=== PATIENT | male | born 1940 | race Caucasian/White ===

== ENCOUNTER 2016-07-22 12:23 | Emergency (ER) | payer OTHER ==
[~2016-07-22] VITALS: Ht 170.2 cm; Wt 104.0 kg
[~2016-07-22 12:23] MED LIST: ASPI81 PO; FENO50TA PO; FISH1000 PO; NIAC500 PO; TAB-TAB PO; TOPR50TA PO; ZOCO40TA PO
--- NOTE | 2016-07-22 12:43 | PD ---
HPI Chief Complaint: Respiratory Symptoms Time Seen by Provider: 12:40 Travel History International Travel<30 days: No Contact w/Intl Traveler<30days: No History of Present Illness HPI Patient presents with congestion dyspnea and cough for approximately 2 weeks. Denies any nausea vomiting diarrhea or fever. History of asbestosis and bilateral breast cancer. Followed by oncology. He does not have a blender. Denies any new rashes. Denies any tobacco exposure. PFSH Past Medical History High Cholesterol: Yes Diminished Hearing: No Hypertension: Yes Kidney Stones: Yes Social History Alcohol Use: Yes (1 YR) Tobacco Use: No Substance Use: No Allergies-Medications (Allergen,Severity, Reaction): Coded Allergies: No Known Allergies (Verified , 07/22/16) Reported Meds & Prescriptions Reported Meds & Active Scripts Active Reported Fenofibrate 160 Mg Tab 160 Mg PO DAILY B12 (Cyanocobalamin) 1,000 Mcg Tab 1,000 Mcg PO DAILY Multi Vitamin (Multiple Vitamin) 1 Tab Tab 1 Tab PO DAILY Osteo Bi-Flex One A Day (Hdolsmlqq-Csyhdaqyyfy-Tufdazu) 1 Tab 1 Tab PO DAILY Calcium 500 +D (Calcium Carbonate-Cholecalciferol) 500-400 Mg-Unit Tab 1 Tab PO TID Tamoxifen (Tamoxifen Citrate) 20 Mg Tab 20 Mg PO DAILY Losartan (Losartan Potassium) 100 Mg Tab 100 Mg PO DAILY Metoprolol Tartrate 25 Mg Tab 25 Mg PO BID Simvastatin 40 Mg Tab 40 Mg PO HS Aspirin Low Dose (Aspirin) 81 Mg Chew 81 Mg CHEW DAILY Review of Systems General / Constitutional: No: Fever Eyes: No: Visual changes HENT: No: Headaches Cardiovascular: No: Chest Pain or Discomfort Respiratory: Positive: Cough, Shortness of Breath Gastrointestinal: No: Abdominal Pain Genitourinary: No: Dysuria Musculoskeletal: No: Pain Skin: No Rash Neurologic: No: Weakness Psychiatric: No: Depression Endocrine: No: Polydipsia Hematologic/Lymphatic: No: Easy Bruising Physical Exam Narrative GENERAL: Well-nourished, well-developed patient. SKIN: Warm and dry. HEAD: Normocephalic. EYES: No scleral icterus. No injection or drainage. NECK: Supple, trachea midline. No JVD or lymphadenopathy. CARDIOVASCULAR: Regular rate and rhythm without murmurs, gallops, or rubs. RESPIRATORY: Good breath sounds in all feng. No accessory muscle use. GASTROINTESTINAL: Abdomen soft, non-tender, nondistended. MUSCULOSKELETAL: No cyanosis, or edema. BACK: Nontender without obvious deformity. No CVA tenderness. Data Data Last Documented VS Vital Signs Date Time Temp Pulse Resp B/P Pulse Ox O2 Delivery O2 Flow Rate FiO2 07/22/16 13:20 94 Room Air 07/22/16 13:10 98.3 82 16 168/83 Orders Complete Blood Count With Diff (07/22/16 12:40) Basic Metabolic Panel (Bmp) (07/22/16 12:40) Chest, Single Ap (07/22/16 12:40) Sodium Chloride 0.9% Flush (Ns Flush) (07/22/16 12:45) Labs Laboratory Tests Test 07/22/16 13:00 White Blood Count 8.4 TH/MM3 Red Blood Count 5.16 MIL/MM3 Hemoglobin 14.2 GM/DL Hematocrit 42.8 % Mean Corpuscular Volume 83.0 FL Mean Corpuscular Hemoglobin 27.6 PG Mean Corpuscular Hemoglobin 33.2 % Concent Red Cell Distribution Width 13.6 % Platelet Count 205 TH/MM3 Mean Platelet Volume 8.0 FL Neutrophils (%) (Auto) 69.0 % Lymphocytes (%) (Auto) 10.0 % Monocytes (%) (Auto) 8.0 % Eosinophils (%) (Auto) 10.0 % Basophils (%) (Auto) 3.0 % Neutrophils # (Auto) 5.8 TH/MM3 Lymphocytes # (Auto) 0.8 TH/MM3 Monocytes # (Auto) 0.7 TH/MM3 Eosinophils # (Auto) 0.8 TH/MM3 Basophils # (Auto) 0.3 TH/MM3 CBC Comment DIFF FINAL Differential Comment Sodium Level 141 MEQ/L Potassium Level 3.8 MEQ/L Chloride Level 104 MEQ/L Carbon Dioxide Level 27.4 MEQ/L Anion Gap 10 MEQ/L Blood Urea Nitrogen 23 MG/DL Creatinine 2.00 MG/DL Estimat Glomerular Filtration 33 ML/MIN Rate Random Glucose 117 MG/DL Calcium Level 8.7 MG/DL [facility] Medical Decision Making Medical Screen Exam Complete: Yes Emergency Medical Condition: Yes Differential Diagnosis Asbestosis aggravation or progression, pneumonia, upper respiratory infection, viral syndrome, cough Narrative Course Assessment and plan discussed with patient and at bedside. Chest x-ray showed no acute cardiopulmonary process. Laboratory studies are within normal limits. I think with the patient's history of asbestosis and antibiotic and cough suppressant is appropriate. Diagnosis Primary Impression: Upper respiratory infection Qualified Code: J06.9 - Upper respiratory tract infection, unspecified type Patient Instructions: General Instructions Additional Instructions: Encouraged rest fluids and Motrin, encourage frequent handwashing, encourage vitamin C and zinc to boost immune system. Follow-up with oncology as scheduled , discussed follow-up with pulmonology secondary to asbestosis. Med/Other Pt SpecificInfo: Prescription(s) given Scripts Guaifenesin-Codeine Liq (Cheratussin AC Liq)100-10 Mg/5 Ml Syrp10 Ml PO Q4H PRN (COUGH AND COLD SYMPTOMS) #120 ML Ref 0 Do not exceed 6 doses/24 hrs. Prov:Jesús Jett MD 07/22/16 Azithromycin (Zithromax Z-Haider)250 Mg Fcil109 Mg PO DIRECTED #1 DSPK Ref 0 500 MG (2 tabs) day 1, then 1 tab days 2-5. Prov:Jesús Jett MD 07/22/16 Disposition: 01 DISCHARGE HOME Condition: Good Jesús Jett MD Jul 22, 2016 12:43
[2016-07-22] MEDS ORDERED: SODIUM CHLORIDE 0.9% FLUSH 5 ML FLUSH IVF PRN (12:45)
[2016-07-22 13:10] VITALS: BP 168/83; PULSE 82; RESP 16; TEMP 98.3; O2SAT 89
[2016-07-22 13:13] LABS: AUTOMATED NEUTROPHIL # 5.8 TH/MM3 (1.8-7.7); BASOPHIL # 0.3 TH/MM3 (0-0.2); EOSINOPHIL # 0.8 TH/MM3 (0-0.4); HEMATOCRIT 42.8 % (39.0-51.0); HEMO FLAGS DIFF FINAL; LYMPHOCYTE # 0.8 TH/MM3 (1.0-4.8); MEAN CORPUSCULAR HEMOGLOBIN 27.6 PG (27.0-34.0); MEAN CORPUSCULAR HGB CONC 33.2 % (32.0-36.0); PLATELET COUNT 205 TH/MM3 (150-450); RED BLOOD COUNT 5.16 MIL/MM3 (4.50-5.90); RED CELL DISTRIBUTION WIDTH 13.6 % (11.6-17.2); WHITE BLOOD COUNT 8.4 TH/MM3 (4.0-11.0)
[2016-07-22] MEDS ORDERED: ASPI81CH37 CHEW (13:20)
[2016-07-22] MEDS ORDERED: FENO160T PO (13:20)
[2016-07-22] MEDS ORDERED: LOSA100T PO (13:20)
[2016-07-22] MEDS ORDERED: TAMO20TA6 PO (13:20)
[2016-07-22] MEDS ORDERED: BOSW5TAB PO (13:20)
[2016-07-22] MEDS ORDERED: SIMV40TA PO (13:20)
[2016-07-22] MEDS ORDERED: CYAN1TAB24 PO (13:20)
[2016-07-22] MEDS ORDERED: METO25TA3 PO (13:20)
[2016-07-22] MEDS ORDERED: CALC1TAB12 PO (13:20)
[2016-07-22] MEDS ORDERED: MULT-135 PO (13:20)
[2016-07-22 13:24] LABS: POTASSIUM 3.8 MEQ/L (3.5-5.1)
[2016-07-22 13:28] LABS: BICARBONATE 27.4 MEQ/L (21.0-32.0)
--- NOTE | 2016-07-22 13:46 | RADHPO ---
EXAM DATE/TIME: 07/22/2016 12:54 [facility] COMPARISON: No previous studies available for comparison. INDICATIONS : Shortness of breath. Cough and congestion for two weeks. MEDICAL HISTORY : Hypertension. SURGICAL HISTORY : None. ENCOUNTER: Initial ACUITY: 2 weeks PAIN SCORE: 0/10 LOCATION: Bilateral chest FINDINGS: Portable AP view of the chest demonstrates a normal-sized cardiac silhouette. No effusion, consolidat ion, or pneumothorax is present. Bones and soft tissues demonstrate no acute finding. Multiple clips overlie the left axilla. CONCLUSION: No acute cardiopulmonary abnormality is identified. Landon Rodarte MD on July 22, 2016 at 13:43 Board Certified Radiologist. This report was verified electronically.
[2016-07-22] MEDS ORDERED: CHERSYP2 PO (13:52)
[2016-07-22] MEDS ORDERED: ZITHTAB PO (13:52)
[2016-07-22 14:08] VITALS: BP 173/79
== END 2016-07-22 14:11 | disposition home or self-care (01) ==
LOC: PHED 12:23
DX: J06.9 Acute upper respiratory infection, unspecified (principal); E78.00 Pure hypercholesterolemia, unspecified; I10 Essential (primary) hypertension; F10.21 Alcohol dependence, in remission
CPT/HCPCS: 71010; 80048; 85025; 99283

== ENCOUNTER 2016-08-12 18:00 | Inpatient (IN) | payer OTHER, MEDICARE ==
[~2016-08-12] VITALS: Ht 170.2 cm; Wt 100.2 kg
[~2016-08-12 18:00] MED LIST changes: -ASPI81 PO; +ASPI81CH37 CHEW; +BOSW5TAB PO; +CALC1TAB12 PO; +CHERSYP2 PO; +CYAN1TAB24 PO; +FENO160T PO; -FENO50TA PO; -FISH1000 PO; +LOSA100T PO; +METO25TA3 PO; +MULT-135 PO; -NIAC500 PO; +SIMV40TA PO; -TAB-TAB PO; +TAMO20TA6 PO; -TOPR50TA PO; +ZITHTAB PO; -ZOCO40TA PO
[2016-08-12 18:02] VITALS: BP 114/67; PULSE 100; RESP 18; TEMP 98; O2SAT 93
[2016-08-12] MEDS ORDERED: AMOX875T2 PO (18:17)
--- NOTE | 2016-08-12 18:25 | PD ---
HPI Chief Complaint: Cold / Flu Symptoms Time Seen by Provider: 18:17 Travel History International Travel<30 days: No Contact w/Intl Traveler<30days: No Traveled to known affect area: No History of Present Illness HPI 75-year-old male with history of breast cancer status post treatment, presents to the ER today with 3 weeks' history of shortness of breath, coughing, has been seen by primary care physician for this and has been on a course of Z-Haider and amoxicillin, but comes to the ER today because he states that the symptoms are worsening and that he coughs in spasms and nearly has syncopal episodes when the spasm of coughing occurs. He has been having fevers but denies any chest pains, vomiting, or any other symptoms. Modifying Factors: Worse with exertion Associated Signs & Symptoms: Coughing spasms, shortness of breath, dyspnea on exertion, near-syncope Risk Factors: Cancer history PFSH Past Medical History Hx Anticoagulant Therapy: No Arthritis: Yes Cardiovascular Problems: Yes (HTN) High Cholesterol: Yes Cerebrovascular Accident: No Diabetes: No Diminished Hearing: No Hypertension: Yes Kidney Stones: Yes Respiratory: No Past Surgical History Hysterectomy: No Other Surgery: Yes (HERNIA REMOVAL/ DOUBLE MASECTOMY ) Social History Alcohol Use: Yes (1 YR) Tobacco Use: No (QUIT 1968) Substance Use: No Allergies-Medications (Allergen,Severity, Reaction): Coded Allergies: No Known Allergies (Verified , 08/12/16) Reported Meds & Prescriptions Reported Meds & Active Scripts Active Reported Amoxicillin-Clavulanate 875-125 mg Tab 875 Mg PO BID not for use in CrCl <30 mL/minute Fenofibrate 160 Mg Tab 160 Mg PO DAILY B12 (Cyanocobalamin) 1,000 Mcg Tab 1,000 Mcg PO DAILY Multi Vitamin (Multiple Vitamin) 1 Tab Tab 1 Tab PO DAILY Osteo Bi-Flex One A Day (Wbiadjbve-Nkknasvscun-Fatczvy) 1 Tab 1 Tab PO DAILY Calcium 500 +D (Calcium Carbonate-Cholecalciferol) 500-400 Mg-Unit Tab 1 Tab PO TID Tamoxifen (Tamoxifen Citrate) 20 Mg Tab 20 Mg PO DAILY Losartan (Losartan Potassium) 100 Mg Tab 100 Mg PO DAILY Metoprolol Tartrate 25 Mg Tab 25 Mg PO BID Simvastatin 40 Mg Tab 40 Mg PO HS Aspirin Low Dose (Aspirin) 81 Mg Chew 81 Mg CHEW DAILY Review of Systems Except as stated in HPI: all other systems reviewed are Neg Physical Exam Narrative GENERAL: Well-nourished, well-developed elderly white male patient in no acute distress at rest. Awake and oriented 3. SKIN: Warm and dry. HEAD: Normocephalic. EYES: No scleral icterus. No injection or drainage. NECK: Supple, trachea midline. No JVD . CARDIOVASCULAR: Regular rate and rhythm without murmurs, gallops, or rubs. RESPIRATORY: Breath sounds equal bilaterally. No accessory muscle use. GASTROINTESTINAL: Abdomen soft, non-tender, nondistended. MUSCULOSKELETAL: No cyanosis, or edema. BACK: Nontender without obvious deformity. No CVA tenderness. Data Data Last Documented VS Vital Signs Date Time Temp Pulse Resp B/P Pulse Ox O2 Delivery O2 Flow Rate FiO2 08/12/16 18:41 93 08/12/16 18:02 98.0 100 18 114/67 Orders Electrocardiogram (08/12/16 18:17) Complete Blood Count With Diff (08/12/16 18:17) Comprehensive Metabolic Panel (08/12/16 18:17) Magnesium (Mg) (08/12/16 18:17) B-Type Natriuretic Peptide (08/12/16 18:17) Ckmb (Isoenzyme) Profile (08/12/16 18:17) Troponin I (08/12/16 18:17) Act Partial Throm Time (Ptt) (08/12/16 18:17) Prothrombin Time / Inr (Pt) (08/12/16 18:17) Chest, Single Ap (08/12/16 18:17) Ecg Monitoring (08/12/16 18:17) Iv Access Insert/Monitor (08/12/16 18:17) Oximetry (08/12/16 18:17) Sodium Chloride 0.9% Flush (Ns Flush) (08/12/16 18:30) Blood Culture (08/12/16 18:17) Ct Pulmonary Angiogram (08/12/16 19:04) Labs Laboratory Tests Test 08/12/16 18:30 White Blood Count 9.9 TH/MM3 Red Blood Count 5.18 MIL/MM3 Hemoglobin 14.1 GM/DL Hematocrit 43.0 % Mean Corpuscular Volume 83.1 FL Mean Corpuscular Hemoglobin 27.1 PG Mean Corpuscular Hemoglobin 32.7 % Concent Red Cell Distribution Width 14.5 % Platelet Count 236 TH/MM3 Mean Platelet Volume 9.0 FL Neutrophils (%) (Auto) 71.5 % Lymphocytes (%) (Auto) 10.8 % Monocytes (%) (Auto) 6.3 % Eosinophils (%) (Auto) 9.7 % Basophils (%) (Auto) 1.7 % Neutrophils # (Auto) 7.0 TH/MM3 Lymphocytes # (Auto) 1.1 TH/MM3 Monocytes # (Auto) 0.6 TH/MM3 Eosinophils # (Auto) 1.0 TH/MM3 Basophils # (Auto) 0.2 TH/MM3 CBC Comment DIFF FINAL Differential Comment Prothrombin Time 12.0 SEC Prothromb Time International 1.1 RATIO Ratio Activated Partial 24.5 SEC Thromboplast Time Sodium Level 140 MEQ/L Potassium Level 3.9 MEQ/L Chloride Level 105 MEQ/L Carbon Dioxide Level 24.9 MEQ/L Anion Gap 10 MEQ/L Blood Urea Nitrogen 26 MG/DL Random Glucose 140 MG/DL Calcium Level 8.4 MG/DL Magnesium Level 2.2 MG/DL Albumin 3.0 GM/DL MDM Medical Decision Making Medical Screen Exam Complete: Yes Emergency Medical Condition: Yes Medical Record Reviewed: Yes Interpretation(s) EKG shows sinus rhythm at a rate of 91 bpm with T-wave inversions in the lateral leads but no signs of acute ST-T elevations. Laboratory Tests Test 08/12/16 18:30 Neutrophils (%) (Auto) 71.5 % (16.0-70.0) Eosinophils (%) (Auto) 9.7 % (0.0-4.0) Eosinophils # (Auto) 1.0 TH/MM3 (0-0.4) Prothrombin Time 12.0 SEC (9.8-11.6) Blood Urea Nitrogen 26 MG/DL (7-18) Random Glucose 140 MG/DL (74-106) Calcium Level 8.4 MG/DL (8.5-10.1) Albumin 3.0 GM/DL (3.4-5.0) Differential Diagnosis Coughing, dyspnea on exertion, shortness of breath, near-syncopepertussis versus viral syndrome versus bronchitis versus pneumonia versus PE versus CHF Narrative Course Chest x-ray did not show any signs of acute lobar pneumonia. Considering patient's history, PE study was ordered. Lab work is pending. Physician Communication Physician Communication Case is signed out to Dr. Cisse at 7 PM awaiting CTA for further disposition. Diagnosis Primary Impression: Shortness of breath Condition: Stable SoonToma lund MD Aug 12, 2016 18:25
[2016-08-12] MEDS ORDERED: SODIUM CHLORIDE 0.9% FLUSH 5 ML FLUSH IVF PRN ×2 (18:30→21:00)
[2016-08-12 18:41] VITALS: O2SAT 93
[2016-08-12 18:46] LABS: BASOPHIL # 0.2 TH/MM3 (0-0.2); BASOPHIL % 1.7 % (0.0-2.0); EOSINOPHIL % 9.7 % (0.0-4.0); LYMPH % 10.8 % (9.0-44.0); LYMPHOCYTE # 1.1 TH/MM3 (1.0-4.8); MEAN CELL VOLUME 83.1 FL (80.0-100.0); MEAN CORPUSCULAR HEMOGLOBIN 27.1 PG (27.0-34.0); MEAN CORPUSCULAR HGB CONC 32.7 % (32.0-36.0); MONO % 6.3 % (0.0-8.0); NEUT % 71.5 % (16.0-70.0); PLATELET COUNT 236 TH/MM3 (150-450); RED BLOOD COUNT 5.18 MIL/MM3 (4.50-5.90); RED CELL DISTRIBUTION WIDTH 14.5 % (11.6-17.2); WHITE BLOOD COUNT 9.9 TH/MM3 (4.0-11.0)
[2016-08-12 18:47] LABS: HEMO FLAGS DIFF FINAL
[2016-08-12 19:00] LABS: CHLORIDE 105 MEQ/L (98-107); POTASSIUM 3.9 MEQ/L (3.5-5.1); SODIUM (NA) 140 MEQ/L (136-145)
[2016-08-12 19:03] LABS: ANION GAP 10 MEQ/L (5-15); BICARBONATE 24.9 MEQ/L (21.0-32.0)
[2016-08-12 19:04] LABS: APTT (PATIENT) 24.5 SEC (24.3-30.1); BLOOD UREA NITROGEN 26 MG/DL (7-18); INTERNATIONAL NORMALIZED RATIO 1.1 RATIO; MAGNESIUM 2.2 MG/DL (1.5-2.5)
[2016-08-12 19:07] LABS: ALT (GPT) 22 U/L (12-78); AST (GOT) 23 U/L (15-37); GLOMERULAR FILTRATION RATE 35 ML/MIN (>89)
[2016-08-12 19:08] LABS: TOTAL BILIRUBIN ADULT 0.3 MG/DL (0.2-1.0)
[2016-08-12 19:09] LABS: ALKALINE PHOSPHATASE 28 U/L (45-117)
[2016-08-12 19:15] LABS: CREATINE KINASE 93 U/L (39-308)
--- NOTE | 2016-08-12 19:33 | PD ---
Physical Exam Date Seen by Provider: Aug 12, 2016 Time Seen by Provider: 19:28 Narrative accepted in transfer of care from Dr Rowell GENERAL: Well-developed well-nourished male in no acute distress no respiratory distress this supplemental nasal cannula oxygen in place SKIN: Warm and dry. HEAD: Normocephalic. EYES: No scleral icterus. No injection or drainage. NECK: Supple, trachea midline. No JVD or lymphadenopathy. CARDIOVASCULAR: Regular rate and rhythm without murmurs, gallops, or rubs. RESPIRATORY: Breath sounds equal bilaterally. No accessory muscle use. GASTROINTESTINAL: Abdomen soft, non-tender, nondistended. MUSCULOSKELETAL: No cyanosis, or edema. BACK: Nontender without obvious deformity. No CVA tenderness. Data Data Last Documented VS Vital Signs Date Time Temp Pulse Resp B/P Pulse Ox O2 Delivery O2 Flow Rate FiO2 08/12/16 20:13 90 133/80 98 Nasal Cannula 2.5 115/76 08/12/16 19:40 18 08/12/16 18:02 98.0 Orders Electrocardiogram (08/12/16 18:17) Complete Blood Count With Diff (08/12/16 18:17) Comprehensive Metabolic Panel (08/12/16 18:17) Magnesium (Mg) (08/12/16 18:17) B-Type Natriuretic Peptide (08/12/16 18:17) Ckmb (Isoenzyme) Profile (08/12/16 18:17) Troponin I (08/12/16 18:17) Act Partial Throm Time (Ptt) (08/12/16 18:17) Prothrombin Time / Inr (Pt) (08/12/16 18:17) Chest, Single Ap (08/12/16 18:17) Ecg Monitoring (08/12/16 18:17) Iv Access Insert/Monitor (08/12/16 18:17) Oximetry (08/12/16 18:17) Sodium Chloride 0.9% Flush (Ns Flush) (08/12/16 18:30) Blood Culture (08/12/16 18:17) Ct Pulmonary Angiogram (08/12/16 19:04) Aspirin Chew (Aspirin Chew) (08/12/16 19:45) Us Leg Venous Doppler Bilat (08/12/16 ) Heparin Infusion CLAY.Q1H (08/12/16 20:18) Heparin Inj (Heparin Inj) (08/12/16 20:30) Heparin Inj (Heparin Inj) (08/13/16 02:30) Heparin Inj (Heparin Inj) (08/13/16 02:30) Heparin-D5w Inj (Heparin-D5w Inj) (08/12/16 20:30) Cbc No Diff, Includes Plts (08/15/16 06:00) Occult Blood (Hemoccult) Stool (08/12/16 20:18) Admit Order (Ed Use Only) (08/12/16 ) ^ Saline Lock (08/12/16 20:50) Resp Oxygen Marco C Titrat 1-4 L (08/12/16 ) ^ Notify Dr: Other (08/12/16 20:50) Sodium Chloride 0.9% Flush (Ns Flush) (08/12/16 21:00) Sodium Chloride 0.9% Flush (Ns Flush) (08/12/16 21:00) Labs Laboratory Tests Test 08/12/16 18:30 White Blood Count 9.9 TH/MM3 Red Blood Count 5.18 MIL/MM3 Hemoglobin 14.1 GM/DL Hematocrit 43.0 % Mean Corpuscular Volume 83.1 FL Mean Corpuscular Hemoglobin 27.1 PG Mean Corpuscular Hemoglobin 32.7 % Concent Red Cell Distribution Width 14.5 % Platelet Count 236 TH/MM3 Mean Platelet Volume 9.0 FL Neutrophils (%) (Auto) 71.5 % Lymphocytes (%) (Auto) 10.8 % Monocytes (%) (Auto) 6.3 % Eosinophils (%) (Auto) 9.7 % Basophils (%) (Auto) 1.7 % Neutrophils # (Auto) 7.0 TH/MM3 Lymphocytes # (Auto) 1.1 TH/MM3 Monocytes # (Auto) 0.6 TH/MM3 Eosinophils # (Auto) 1.0 TH/MM3 Basophils # (Auto) 0.2 TH/MM3 CBC Comment DIFF FINAL Differential Comment Prothrombin Time 12.0 SEC Prothromb Time International 1.1 RATIO Ratio Activated Partial 24.5 SEC Thromboplast Time Sodium Level 140 MEQ/L Potassium Level 3.9 MEQ/L Chloride Level 105 MEQ/L Carbon Dioxide Level 24.9 MEQ/L Anion Gap 10 MEQ/L Blood Urea Nitrogen 26 MG/DL Creatinine 1.90 MG/DL Estimat Glomerular Filtration 35 ML/MIN Rate Random Glucose 140 MG/DL Calcium Level 8.4 MG/DL Magnesium Level 2.2 MG/DL Total Bilirubin 0.3 MG/DL Aspartate Amino Transf 23 U/L (AST/SGOT) Alanine Aminotransferase 22 U/L (ALT/SGPT) Alkaline Phosphatase 28 U/L Total Creatine Kinase 93 U/L Troponin I 0.15 NG/ML B-Type Natriuretic Peptide 392 PG/ML Total Protein 6.8 GM/DL Albumin 3.0 GM/DL [facility] Medical Record Reviewed: Yes Supervised Visit with ANI: No Interpretation(s) Troponin I: 0.15, elevated; CK total 93, not elevated; BNP: 392, elevated, mildly Last Impressions CT Angiography 08/12/[id number] Signed Impressions: Service Date/Time: Friday, August 12, 2016 19:22 - CONCLUSION: 1. Large central pulmonary emboli bilaterally. Tushar Lake MD Chest X-Ray 08/12/[id number] Signed Impressions: Service Date/Time: Friday, August 12, 2016 18:43 - CONCLUSION: 1. No acute findings. Tushar Lake MD Vital Signs Date Time Temp Pulse Resp B/P Pulse Ox O2 Delivery O2 Flow Rate FiO2 08/12/16 20:13 90 133/80 98 Nasal Cannula 2.5 115/76 08/12/16 19:40 91 18 127/65 97 Nasal Cannula 2.5 115/58 08/12/16 18:41 93 08/12/16 18:02 98.0 100 18 114/67 93 CBC & BMP Diagram 08/12/16 18:30 Differential Diagnosis accepted in transfer of care from Dr Rowell, please refer to her dictation Narrative Course accepted in transfer of care from Dr Rowell for follow-up of pending labs, pulmonary CTA, and disposition Case/reading discussed with reading radiologist Dr. Lake reports that embolism does not involve the bifurcation so is not a saddle embolism but does involve the distal main vessels with moderate to large thrombus load. Critical Care Narrative Aggregate critical care time was 40 minutes. Time to perform other separately billable procedures was not included in the critical care time. My time did not include minutes spent treating any other patients simultaneously or on activities that did not directly contribute to the patient's treatment. The services I provided to this patient were to treat and/or prevent clinically significant deterioration that could result in: Respiratory failure cardiovascular shock I provided critical care services requiring my management, as noted below: Chart data review, documentation time, medication orders and management, vital sign assessments/reviewing monitor data, ordering and reviewing lab tests, ordering and interpreting/reviewing x-rays and diagnostic studies, care of the patient and discussion of the patient with the admitting physicians. Physician Communication Physician Communication call placed for admission -discussed with Dr Rios; discussed with Dr Morrison-- - not IR case; discussed with Dr Rios--- aware of PET scan from 08/03/16 and IR call Diagnosis Primary Impression: Pulmonary emboli Admitting Information Admitting Physician Requests: Admit Condition: Stable Erna Cisse MD Aug 12, 2016 19:33
--- NOTE | 2016-08-12 19:34 | RADHPO ---
EXAM DATE/TIME: 08/12/2016 18:43 [facility] COMPARISON: No previous studies available for comparison. INDICATIONS : Shortness of breath for three weeks. MEDICAL HISTORY : Hypertension. SURGICAL HISTORY : None. ENCOUNTER: Initial ACUITY: 3 weeks PAIN SCORE: 0/10 LOCATION: Bilateral chest FINDINGS: A single view of the chest demonstrates the lungs to be symmetrically aerated without evidence of mas s, infiltrate or effusion. The cardiomediastinal contours are unremarkable. Osseous structures are intact. CONCLUSION: 1. No acute findings. Tushar Lake MD on August 12, 2016 at 19:32 Board Certified Radiologist. This report was verified electronically.
[2016-08-12 19:40] VITALS: BP_SYST 115; BP_SYST 127; BP_DIAS 58; BP_DIAS 65; PULSE 91; RESP 18; O2SAT 97
[2016-08-12] MEDS ORDERED: ASPIRIN 81 MG CHEW TAB CHEW ONE (19:45)
--- NOTE | 2016-08-12 19:50 | RADHPO ---
EXAM DATE/TIME: 08/12/2016 19:22 [facility] COMPARISON: No previous studies available for comparison. INDICATIONS : Shortness of breath. IV CONTRAST: 50 cc Visipaque (iodixanol) IV RADIATION DOSE: 21.02 CTDIvol (mGy) MEDICAL HISTORY : Carcinoma, breast. Hypertension. Renal calculi. SURGICAL HISTORY : Mastectomy, bilateral. ENCOUNTER: Initial ACUITY: 3 weeks PAIN SCALE: 0/10 LOCATION: chest TECHNIQUE: Volumetric scanning of the chest was performed using a pulmonary embolism protocol MIP images were re constructed. Using automated exposure control and adjustment of the mA and/or kV according to patien t size, radiation dose was kept as low as reasonably achievable to obtain optimal diagnostic quality images. FINDINGS: There are multiple bilateral pulmonary emboli with large filling defects centrally. Minimal basilar a telectasis in the lungs and some groundglass opacity in the upper lobes. No significant effusion. No adenopathy. No acute findings in the upper abdomen. CONCLUSION: 1. Large central pulmonary emboli bilaterally. Tushar Lake MD on August 12, 2016 at 19:46 Board Certified Radiologist. This report was verified electronically.
[2016-08-12 20:13] VITALS: BP_SYST 115; BP_SYST 133; BP_DIAS 76; BP_DIAS 80; PULSE 90; O2SAT 98
[2016-08-12] MEDS ORDERED: HEPARIN SODIUM - IV 10,000 UNITS/10 ML VIAL IV ONE (20:30)
[2016-08-12] MEDS ORDERED: HEPARIN-D5W INJ 250 ML IV SCH (20:30)
[2016-08-12] MEDS ORDERED: SODIUM CHLORIDE 0.9% FLUSH 5 ML FLUSH IVF SCH (21:00)
[2016-08-12 22:23] VITALS: O2SAT 98
--- NOTE | 2016-08-12 23:11 | RADHPO ---
EXAM DATE/TIME: 08/12/2016 22:12 [facility] COMPARISON: No previous studies available for comparison. INDICATIONS : Pulmonary embolism. MEDICAL HISTORY : Hypercholesterolemia. Hypertension. Kidney stones. Arthritis. Radiation therapy. SURGICAL HISTORY : Left wrist surgery. Hernia repair. Double mastectomy. ENCOUNTER: Initial ACUITY: 1 day PAIN SCORE: 0/10 LOCATION: Bilateral legs. TECHNIQUE: Venous ultrasound of the left and right leg was performed from the inguinal ligament to the proximal calf. Real-time, color Doppler and spectral tracing, compression and augmentation techniques were us ed. FINDINGS: RIGHT LEG: There is normal compressibility of the deep venous system from the inguinal region to the proximal ca lf. No echogenic clot is seen in the lumen of the common femoral, femoral, popliteal, and posterior tibial veins. There is a normal response of the venous system to proximal and distal augmentation an d respiration. LEFT LEG: There is DVT beginning in the proximal superficial femoral vein and extending below the knee into the posterior tibial vein. CONCLUSION: Long segment DVT of the left lower extremity as above. No DVT on the right. Landon Nance MD on August 12, 2016 at 23:08 Board Certified Radiologist. This report was verified electronically.
[2016-08-12] MEDS ORDERED: CHLORHEXIDINE GLUCONATE 2 % 1 PACK (2 CLOTHS)(extra cloths) TOP PRN (23:30)
[2016-08-13] VITALS (16 sets, daily range): BP systolic 113–157; BP diastolic 55–79; PULSE 80–111; RESP 20–28; TEMP 98.2–100; O2SAT 93–97
[2016-08-13] MEDS ORDERED: ONDANSETRON HCL 4 MG/2 ML VIAL IV PRN (00:45)
[2016-08-13] MEDS ORDERED: SODIUM CHLORIDE 0.9% FLUSH 5 ML FLUSH IV FLUSH PRN (00:45)
[2016-08-13] MEDS ORDERED: MISCELLANEOUS NURSING INFORMATION XX SCH (00:45)
[2016-08-13] MEDS ORDERED: CHLORHEXIDINE GLUCONATE 2 % 1 PACK (2 CLOTHS) TOP PRN (00:45)
[2016-08-13] MEDS ORDERED: ACETAMINOPHEN 325 MG TAB PO PRN (00:45)
[2016-08-13] MEDS ORDERED: RESP: ALBUTEROL 2.5 MG/3 ML NEB (PRN) INH (00:45)
--- NOTE | 2016-08-13 00:48 | HHI.HP ---
HPI Service Critical Care Medicine Primary Care Physician [place] Zepeda MD Admission Diagnosis Acute bilateral pulmonary emboli; h/o breast cancer Diagnosis: Travel History International Travel<30 Days: No Contact w/Intl Traveler <30 Da: No Traveled to Known Affected Are: No History of Present Illness 75 yo WM with PMH of HTN, hyperlipidemia, CKD stage III, and breast cancer with T10 vertebral body metastasis. He presented to [facility] Emergency department with 3-4 week history of shortness of breath and was found to have bilateral central pulmonary emboli. He states he has been having a cough, at times productive of phlegm, for about 4 weeks. He has had some dizziness and pre-syncope with cough. Denies chest pain or hemoptysis. Denies leg pain or swelling. Denies travel or prior history of VTE. He was originally diagnosed with URI and took a course of antibiotics without relief. He was again started on augmentin 08/08/16 per PMD. He had fever up to 101.9 this week. Today Tmax was 99.9. Today he had worsening shortness of breath and fell in the shower after a possible syncopal event. He denies head trauma. His states his BP was 82/50 at 1:30 this afternoon. He has strong family history of breast cancer including multiple male family members with history of breast cancer. In November 2012 he noted irregularity of his right nipple and had an mammogram which reveals bilateral breast masses. 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 BRCA positive. He underwent bilateral mastectomy and was started on anastrazole in march of 2013. He states he also underwent radiation therapy. He was continued on anastrazole until tumor marker became elevated in October 2015. PET scan 12/22/15 showed a solitary uptake of T10 vertebra. MRI T spine was consistent with metastasis. Biopsy of the T10 lesion was c/w breast cancer, ER positive, HI negative. He was started on Tamoxifen in December of 2015. He was followed by Dr. Ford but has been under the care of Dr. De La Torre since the former practice closed. He had PET scan 08/03/16 and report shows previously hypermetabolic T10 lesion now with photopenic defect suggesting interval treatment. Review of Systems Constitutional: COMPLAINS OF: Fever Respiratory: COMPLAINS OF: Shortness of breath Cardiovascular: COMPLAINS OF: Palpitations, Dyspnea on Exertion Past Family Social History Allergies: Coded Allergies: No Known Allergies (Verified , 08/12/16) Past Medical History HTN Hyperlipidemia CKD stage III palpitations Breast cancer Radiation therapy bilateral breasts 32 treatments in 2013 Cataracts He denies history of issues with GI bleeding, intracerebral hemorrhage, spontaneous hemorrhage Past Surgical History He has had no recent surgeries, stating last surgery was years ago. Last ocular surgery 30 years ago. Rest biopsy 2012 Bilateral mastectomy December 2012 Left inguinal hernia repair Colonoscopy 2013 Cataract surgery 30 years ago Left wrist fusion Reported Medications Losartan 100 mg by mouth daily Tamoxifen 20 g by mouth daily Metoprolol 25 mg by mouth twice a day Fenofibrate 160 g by mouth daily Simvastatin 40 g by mouth daily at bedtime Multivitamin 1 tab by mouth daily Aspirin 80 10 g by mouth daily Osteo Bi-Flex 1 tab by mouth daily Augmentin 875 g by mouth twice a day Calcium carbonate 500 mg by mouth 3 times a day B-12 1000 g by mouth daily Family History He had a sister who she states of pulmonary embolism in her late 70s. She had no known cancer history He had brother with colorectal cancer His father, paternal uncle, paternal aunt and paternal male cousin all have had breast cancer. Social History He is a former smoker. States he quit smoking 47 years ago. Drinks alcohol occasionally He is He is retired from working at a [employer] from 19-07/03 years He states he used to be very active and wouldn't walk and ride his bicycle but he has not been able to do so recently because he feels very fatigued. Physical Exam Vital Signs Vital Signs Date Time Temp Pulse Resp B/P Pulse Ox O2 Delivery O2 Flow Rate FiO2 08/12/16 22:23 98 Nasal Cannula 2.50 08/12/16 20:13 90 133/80 98 Nasal Cannula 2.5 115/76 08/12/16 19:40 91 18 127/65 97 Nasal Cannula 2.5 115/58 08/12/16 18:41 93 08/12/16 18:02 98.0 100 18 114/67 93 Physical Exam GENERAL: Well-nourished, well-developed patient who is sitting up in SKIN: Warm and dry. HEAD: Atraumatic. Normocephalic. EYES: Pupils equal and round. No scleral icterus. No injection or drainage. ENT: No nasal bleeding or discharge. Mucous membranes pink and moist. NECK: Trachea midline. No JVD. CARDIOVASCULAR: Regular rate and rhythm. No murmurs rubs or gallops. RESPIRATORY: Mildly tachypneic but without accessory muscle use. Clear to auscultation w/o w/r/r. Breath sounds equal bilaterally. On 2 L NC with sats 95% . GASTROINTESTINAL: Abdomen soft, non-tender, nondistended. bowel sounds present. MUSCULOSKELETAL: Extremities without clubbing, cyanosis. L leg with mild swelling but no erythema or warmth, no mottling, pulses intact. NEUROLOGICAL: Awake and alert. No obvious cranial nerve deficits. Motor grossly within normal limits. Normal speech. Oriented 4. Strength 5 out of 5 in all extremities. Laboratory Laboratory Tests Test 08/12/16 18:30 White Blood Count 9.9 Red Blood Count 5.18 Hemoglobin 14.1 Hematocrit 43.0 Mean Corpuscular Volume 83.1 Mean Corpuscular Hemoglobin 27.1 Mean Corpuscular Hemoglobin 32.7 Concent Red Cell Distribution Width 14.5 Platelet Count 236 Mean Platelet Volume 9.0 Neutrophils (%) (Auto) 71.5 Lymphocytes (%) (Auto) 10.8 Monocytes (%) (Auto) 6.3 Eosinophils (%) (Auto) 9.7 Basophils (%) (Auto) 1.7 Neutrophils # (Auto) 7.0 Lymphocytes # (Auto) 1.1 Monocytes # (Auto) 0.6 Eosinophils # (Auto) 1.0 Basophils # (Auto) 0.2 CBC Comment DIFF FINAL Differential Comment Prothrombin Time 12.0 Prothromb Time International 1.1 Ratio Activated Partial 24.5 Thromboplast Time Sodium Level 140 Potassium Level 3.9 Chloride Level 105 Carbon Dioxide Level 24.9 Anion Gap 10 Blood Urea Nitrogen 26 Creatinine 1.90 Estimat Glomerular Filtration 35 Rate Random Glucose 140 Calcium Level 8.4 Magnesium Level 2.2 Total Bilirubin 0.3 Aspartate Amino Transf 23 (AST/SGOT) Alanine Aminotransferase 22 (ALT/SGPT) Alkaline Phosphatase 28 Total Creatine Kinase 93 Troponin I 0.15 B-Type Natriuretic Peptide 392 Total Protein 6.8 Albumin 3.0 Date/Time Procedure Status Source Growth 08/12/16 18:30 Aerobic Blood Culture Received Blood Peripheral Pending 08/12/16 18:30 Anaerobic Blood Culture Received Blood Peripheral Pending Result Diagram: 08/12/16182908/12/161829 Assessment and Plan Problem List: (1) Pulmonary embolism ICD Code: I26.99 Status: Acute (2) HTN (hypertension) ICD Code: I10 Status: Chronic (3) Breast cancer ICD Code: C50.919 Status: Chronic (4) Hyperlipidemia ICD Code: E78.5 Status: Chronic Assessment and Plan NEURO: Patient denies pain. MRI brain and spine as per discussion below. RESP:- Hypoxia secondary to pulmonary embolism Nasal cannula wean as tolerated for sat greater than 92%. IS q 2 hour awake. CV: History of hypertension Hyperlipidemia Home medications include metoprolol 25 mg by mouth twice a day, losartan 100 mA by mouth daily, aspirin 81 mill grams by mouth daily, simvastatin 40 g by mouth daily at bedtime, fenofibrate 160 g by mouth daily Will hold losartain in view of CKD and IV contrast administration. GI: Heart healthy diet FEN/RENAL: CKD Stage III Received IV contrast 08/12/16. Avoid nephrotoxins. Monitor intake and output. Patient is voiding. Monitor her electrolytes and replace as indicated. ID: No leukocytosis. Afebrile here, reported temps up to 101.9 at home which may be due to VTE. Will complete augmentin course as prescribed to be completed . Check u/a. HEME: Stage IV breast cancer Stage I at time of diagnosis in 12/2012 s/p bilateral mastectomy, bilateral breast radiation, chemotherapy with anastrazole. T10 metastasis diagnosed 12/2015, then started on tamoxifen Submassive pulmonary embolism with RV strain L leg DVT L SFA to popliteal. Hold tamoxifen. Started on heparin in ED. Stat 2D Echo discussed with Dr. Hernandez shows definite RV strain, RV dilation. With this finding in combination with elevated troponin, elevated BNP, home documentation of hypotension would favor use of thrombolytic. Specifically, would recommend low dose TPA protocol for submassive PE consisting of TPA 10 mg IV with 40 mg IV infusion over 2 hours. Discussed risk benefits with patients including possibility of improved symptoms joint terminal attack controller with decreased pulmonary HTN and decreased dyspnea. Did discuss increased risk of bleeding. Also discussed uncertainty regarding what component is acute versus subacute given his duration of symptoms, and that TPA will be of limited benefit for subacute component. However, there is definitely some evidence of acute RV dysfunction per Echo. Discussed with Dr. Chavez who agrees with fibrinolytic for submassive PE provided that MRI demonstrates no evidence of BINDERY OPERATOR metastasis. Will obtain stat MRI brain and spine (has CKD and would avoid a second IV contrast bolus). Patient included in decision making process by way of provision of information regarding risk benefit, including up to 20% risk of bleeding and up to 1-2% risk of intracerebral hemorrhage (despite lack of intracerebral hemorrhage in smaller studies of low dose TPA trials for PE); 6% risk when TPA administered in setting of ischemic stroke. Provided that there is no BINDERY OPERATOR metastasis, there is no contraindication to fibrinolytic based on history discussed with patient and his . He states he is not sure whether he wants TPA and will let me know when he is updated regarding MRI findings. ENDO: Mild hyperglycemia, likely stress induced. No h/o DM. Followup glucose on repeat BMP and institute low-dose insulin sliding scale if indicated. PROPH: On Heparin drip currently. Protonix 40 mg by mouth daily for stress ulcer prophylaxis. ACCESS: Peripheral IV providing adequate access at this time Discussed with Dr. Chavez. Discussed with Dr. Hernandez. Discussed with Dr. Cisse. Dr. Cisse had discussed with Dr. Lake with radiology and Dr. Dhaliwal who felt the patient was not a candidate for catheter directed intervention but Dr. Dhaliwal said could be given systemically if no contraindication. Patient and his updated at bedside. He states he is full code CCT 90 minutes exclusive of separately procedures. Discussed with Dr. Rao who is assuming care this morning as MRI is pending. Problem Qualifiers (1) Pulmonary embolism: Alisha Rios MD Aug 13, 2016 00:48
[2016-08-13] MEDS ORDERED: HEPARIN-D5W INJ 250 ML IV SCH (01:00)
[2016-08-13 01:33] LABS: INTERNATIONAL NORMALIZED RATIO 1.2 RATIO
[2016-08-13] MEDS ORDERED: HEPARIN SODIUM - IV 10,000 UNITS/10 ML VIAL IV PRN ×4 (02:30→07:00)
--- NOTE | 2016-08-13 03:00 | EC ---
Study Study Date:08/13/2016 STUDY CONCLUSIONS SUMMARY - Left ventricle: The cavity size was normal. Wall thickness was increased in a pattern of mild LVH. Systolic function was normal. The estimated ejection fraction was in the range of 60% to 65%. Wall motion was normal; there were no regional wall motion abnormalities. Doppler parameters are consistent with abnormal left ventricular relaxation (grade 1 diastolic dysfunction). - Ventricular septum: The contour showed systolic flattening. These changes are consistent with RV pressure overload. - Right ventricle: The cavity size was moderately dilated. Wall thickness was normal. Hypertrophy was present. Systolic function was reduced. Cannot exclude thrombus at the apex. - Pulmonary arteries: Systolic pressure was severely increased. PA peak pressure: 85mm Hg (S). If LV function is below 40, please consider prescribing an ACEI or ARB or document rationale for non-use. PROCEDURE DATA STUDY STATUS: Elective. Procedure: Transthoracic echocardiography. Image quality was good. Scanning was performed from the parasternal, apical, and subcostal acoustic windows. Study completion: The patient tolerated the procedure well. Transthoracic echocardiography. M-mode, complete 2D, complete spectral Doppler, and color Doppler. Patient status: Inpatient. CARDIAC ANATOMY LEFT VENTRICLE: The cavity size was normal. Wall thickness was increased in a pattern of mild LVH. Systolic function was normal. The estimated ejection fraction was in the range of 60% to 65%. Wall motion was normal; there were no regional wall motion abnormalities. Doppler parameters are consistent with abnormal left ventricular relaxation (grade 1 diastolic dysfunction). AORTIC VALVE: Trileaflet; normal thickness leaflets. Doppler: Transvalvular velocity was within the normal range. There was no stenosis. No regurgitation. AORTA: Aortic root: The aortic root was normal in size. MITRAL VALVE: Structurally normal valve. Doppler: Transvalvular velocity was within the normal range. There was no evidence for stenosis. Trace regurgitation. LEFT ATRIUM: The atrium was normal in size. RIGHT VENTRICLE: The cavity size was moderately dilated. Wall thickness was normal. Hypertrophy was present. Systolic function was reduced. Cannot exclude thrombus at the apex. VENTRICULAR SEPTUM: The contour showed systolic flattening. These changes are consistent with RV pressure overload. PULMONIC VALVE: Doppler: Transvalvular velocity was within the normal range. There was no evidence for stenosis. Trace regurgitation. TRICUSPID VALVE: Structurally normal valve. Doppler: Transvalvular velocity was within the normal range. Trace to mild regurgitation. PULMONARY ARTERY: The main pulmonary artery was normal-sized. Systolic pressure was severely increased. RIGHT ATRIUM: The atrium was normal in size. PERICARDIUM: There was no pericardial effusion. SYSTEMIC VEINS: Inferior vena cava: The vessel was normal in size. BASIC MEASUREMENTS ADULT NORMAL Left ventricle LV internal dimension, ED, chordal level, 45.6 mm 43-52 PLAX LV internal dimension, ES, chordal level, 32.5 mm 23-38 PLAX Fractional shortening, chordal level, PLAX *29 % >29 LV posterior wall thickness, ED 12.3 mm IVS/LVPW ratio, ED 1.08 <1.3 Ventricular septum Septal thickness, ED 13.3 mm Aortic valve Leaflet separation 16 mm 15-26 Right ventricle RV internal dimension, ED, PLAX 32.3 mm 19-38 BASIC MEASUREMENTS ADULT NORMAL Aortic valve Leaflet separation 16 mm 15-26 Aorta Root diameter, ED 32 mm 20-37 Left atrium Anterior-posterior dimension, ES 39 mm 19-40 LA/aortic root ratio 1.22 DOPPLER MEASUREMENTS ADULT NORMAL Main pulmonary artery Pressure, S *85 mm Hg =30 Mitral valve Peak E-wave velocity 69.2 cm/s Peak A-wave velocity 107 cm/s Peak E/A ratio 0.6 Tricuspid valve Regurgitant peak velocity 432 cm/s Peak RV-RA gradient, S 75 mm Hg Maximal regurgitant velocity 432 cm/s Systemic veins Estimated CVP 10 mm Hg Right ventricle RV pressure, S *85 mm Hg <30 LEGEND: Mean values are shown as u=mean value. Asterisk (*) romero values outside specified normal range. Prepared and signed by Scotty Hernandez [id number]
[2016-08-13] MEDS: RESP: ALBUTEROL 2.5 MG/IPRATROPIUM 0.5 MG NEB (SCH) INH ×4 (03:58→21:13)
[2016-08-13] MEDS ORDERED: CHLORHEXIDINE GLUCONATE 2 % 1 PACK (2 CLOTHS)(taper/protocol) TOP SCH (04:00)
[2016-08-13] MEDS: CHLORHEXIDINE GLUCONATE 2 % 1 PACK (2 CLOTHS) TOP SCH (04:00)
[2016-08-13] MEDS: SODIUM CHLORIDE 0.9% FLUSH 5 ML FLUSH IV FLUSH SCH ×2 (09:00→21:26)
[2016-08-13] MEDS ORDERED: GADOBENATE DIM PF 529 MG/ML 10ML VIAL (for RAD MRI) IV ONE (09:00)
--- NOTE | 2016-08-13 09:22 | RADRPT ---
EXAM DATE/TIME: 08/13/2016 08:06 [facility] COMPARISON: CT PULMONARY ANGIOGRAM, August 12, 2016, 19:22. INDICATIONS : Weakness. H/O breast cancer. CONTRAST: 20 cc Multihance (gadobenate) IV MEDICAL HISTORY : Hypertension. Carcinoma, breast. SURGICAL HISTORY : Inguinal hernia repair. ENCOUNTER: Initial ACUITY: 1 day PAIN SCORE: 0/10 LOCATION: Back TECHNIQUE: Multiplanar multisequence MRI of the thoracic spine was performed. FINDINGS: VERTEBRA: Normal vertebral body height. There is a Schmorl's node along the superior plate of T6. There is diff usely decreased signal throughout the body of T10. There does not appear to be any increased signal o n the T2-weighted images. On the CT pulmonary angiogram of 08/12/2016 the T10 vertebral body is diffus magy sclerotic. There is no evidence of any paraspinal soft tissue swelling or paraspinal soft tissue mass. There is normal signal within the rest of the thoracic vertebral bodies. No spondylolisthesis i s seen. No compression fractures are demonstrated. ALIGNMENT: Normal. CORD: Normal position and configuration. POST CONTRAST: No abnormal areas of contrast enhancement seen. T1-T2: Normal. T2-T3: The thecal sac has a normal diameter. No evidence of disc bulge or protrusion. T3-T4: The thecal sac has a normal diameter. No evidence of disc bulge or protrusion. T4-T5: The thecal sac has a normal diameter. No evidence of disc bulge or protrusion. T5-T6: The thecal sac has a normal diameter. No evidence of disc bulge or protrusion. T6-T7: The thecal sac has a normal diameter. No evidence of disc bulge or protrusion. T7-T8: The thecal sac has a normal diameter. No evidence of disc bulge or protrusion. T8-T9: The thecal sac has a normal diameter. No evidence of disc bulge or protrusion. T9-T10: The thecal sac has a normal diameter. No evidence of disc bulge or protrusion. T10-T11: The thecal sac has a normal diameter. No evidence of disc bulge or protrusion. T11-T12: The thecal sac has a normal diameter. No evidence of disc bulge or protrusion. T12-L1: The thecal sac has a normal diameter. No evidence of disc bulge or protrusion. CONCLUSION: 1. Focal diffuse decreased signal throughout the body of T10 which correlates with diffuse sclerosis of the T10 vertebral body on the recent CT scan. There is no increased signal on T2-weighted images a nd there is no abnormal enhancement on the postcontrast images. In this patient with a history of hilario ast cancer, this maybe an old metastatic deposit. Therefore, recommend a bone scan for further evalua tion. 2. The rest of the examination is grossly unremarkable. Merritt Hayes MD on August 13, 2016 at 9:14 Board Certified Radiologist. This report was verified electronically.
--- NOTE | 2016-08-13 09:34 | RADRPT ---
EXAM DATE/TIME: 08/13/2016 08:06 [facility] COMPARISON: No previous studies available for comparison. INDICATIONS : Weakness. H/O breast cancer. CONTRAST: 20 cc Multihance (gadobenate) IV MEDICAL HISTORY : Hypertension. Carcinoma, breast. SURGICAL HISTORY : Mastectomy, bilateral. Inguinal hernia repair. ENCOUNTER: Initial ACUITY: 1 day PAIN SCORE: 0/10 LOCATION: Paraspinal TECHNIQUE: Multiplanar, multisequence MRI examination of the cervical spine was performed. FINDINGS: VERTEBRAE: Normal vertebral body height. Homogeneous marrow signal. There are mild degenerative changes involvi ng the mid to lower cervical spine. There is disc space narrowing at C6-7. No abnormal bone marrow ed lalita is demonstrated. ALIGNMENT: No evidence of subluxation. CORD: Normal configuration and signal. POST FOSSA: The cerebellar tonsils are normal in position. POST-CONTRAST: No abnormal areas of enhancement are seen. C2-C3: The thecal sac has a normal configuration. There is no evidence of disc herniation or spinal canal stenosis. The neural foramina are patent bilaterally. C3-C4: The thecal sac has a normal configuration. There is no evidence of disc herniation or spinal canal s tenosis. The neural foramina are patent bilaterally. C4-C5: The thecal sac has a normal configuration. There is no evidence of disc herniation or spinal canal s tenosis. The neural foramina are patent bilaterally. C5-C6: Mild broad-based bulging. The neural foramina are patent bilaterally. C6-C7: Mild broad-based bulging. The neural foramina are patent bilaterally. C7-T1: The thecal sac has a normal configuration. There is no evidence of disc herniation or spinal canal s tenosis. The neural foramina are patent bilaterally. CONCLUSION: 1. Mild primary bony degenerative changes involving the mid to lower cervical spine with disc degener ation and disc space narrowing at C6-7. 2. Mild broad-based bulging at C5-6 and C6-7. 3. No definite bony metastatic disease is seen. Merritt Hayes MD on August 13, 2016 at 9:29 Board Certified Radiologist. This report was verified electronically.
--- NOTE | 2016-08-13 09:47 | RADRPT ---
EXAM DATE/TIME: 08/13/2016 08:06 [facility] COMPARISON: No previous studies available for comparison. INDICATIONS : Weakness. H/O breast cancer. CONTRAST: 20 cc Multihance (gadobenate) IV MEDICAL HISTORY : Carcinoma, breast. Hypertension. SURGICAL HISTORY : Inguinal hernia repair. Mastectomy, bilateral. ENCOUNTER: Initial ACUITY: 1 day PAIN SCORE: 0/10 LOCATION: cranial TECHNIQUE: Multiplanar, multisequence MRI of the brain was performed both prior to and following the administrat ion of paramagnetic contrast. FINDINGS: CEREBRUM: The ventricles are normal for age. There is bilateral cortical atrophy. No evidence of midline shift, mass lesion, hemorrhage or acute infarction. No extraaxial fluid collections are seen. The pituita ry gland and suprasellar cistern are normal in configuration. WHITE MATTER: No significant signal abnormalities are seen in the white matter. POSTERIOR FOSSA: The cerebellum and brainstem are intact. The 4th ventricle is midline. The cerebellopontine angle is unremarkable. The cerebellar tonsils are normal in position. DIFFUSION IMAGING: No focal areas of restricted diffusion are seen. No evidence of acute infarction. EXTRACRANIAL: The visualized portions of the orbits are unremarkable. There is moderate chronic sinus disease in layne th maxillary sinuses. POST-CONTRAST: No abnormal areas of parenchymal or dural enhancement. No evidence of blood-brain barrier breakdown. No enhancing mass occupying lesions. CONCLUSION: 1. Unremarkable MRI of the brain for patient's age. 2. Moderate bilateral chronic maxillary sinus disease. 3. No evidence of brain metastatic disease. Merritt Hayes MD on August 13, 2016 at 9:43 Board Certified Radiologist. This report was verified electronically.
--- NOTE | 2016-08-13 09:51 | RADRPT ---
EXAM DATE/TIME: 08/13/2016 08:06 [facility] COMPARISON: No previous studies available for comparison. INDICATIONS : Weakness. H/O breast cancer. CONTRAST: 20 cc Multihance (gadobenate) IV MEDICAL HISTORY : Carcinoma, breast. Hypertension. SURGICAL HISTORY : Mastectomy, bilateral. Inguinal hernia repair. ENCOUNTER: Initial ACUITY: 1 day PAIN SCORE: 0/10 LOCATION: Paraspinal TECHNIQUE: Multiplanar multisequence MRI of the lumbar spine was performed with and without contrast. FINDINGS: The most caudal appearing lumbar vertebra is numbered as L5. VERTEBRAE: There is primary diffuse bony degenerative changes route the lumbar spine. There is grade 1 anterior spondylolisthesis of L4 over L5. No bone marrow replacing process is demonstrated. No compression fra ctures are demonstrated. There is disc dehydration at all levels. CONUS: Normal level and configuration. POST CONTRAST: No abnormal areas of contrast enhancement are seen. T12-L1: The thecal sac has a normal diameter. No evidence of disc bulge or protrusion. The neural foramina are patent bilaterally. L1-L2: The thecal sac has a normal diameter. No evidence of disc bulge or protrusion. The neural foramina are patent bilaterally. L2-L3: Mild broad-based bulging and left lateral bulging with narrowing of the left neural foramina. The rig ht neural foramina is patent. There is bilateral facet arthritis. L3-L4: Mild broad-based bulging. The neural foramina are patent bilaterally. Bilateral facet arthritis. L4-L5: Moderate diffuse broad-based bulging with bilateral facet arthritis. This is causing focal moderate s padma canal stenosis. There is some mild narrowing of the neural foramina bilaterally. There is hyper trophy of ligamentum flavum. L5-S1: The thecal sac has a normal diameter. No evidence of disc bulge or protrusion. The neural foramina are patent bilaterally. Bilateral facet arthritis. CONCLUSION: 1. Grade 1 anterior spondylolisthesis of L4 over L5. 2. Moderate spinal canal stenosis L4-5. 3. There is disc dehydration at all levels and there is broad-based bulging at multiple levels. 4. There is primary bony degenerative changes and disc degeneration throughout the lumbar spine. 5. No evidence of bony metastatic disease is seen at this time. Merritt Hayes MD on August 13, 2016 at 9:46 Board Certified Radiologist. This report was verified electronically.
[2016-08-13] MEDS: PANTOPRAZOLE SOD 40 MG DELAYED RELEASE TAB PO SCH (10:05)
[2016-08-13 11:10] LABS: APTT (PATIENT) 54.5 SEC (24.3-30.1)
[2016-08-13] MEDS ORDERED: STERILE WATER IV ONE ×2 (12:00)
[2016-08-13] MEDS ORDERED: ALTEPLASE IV ONE ×2 (12:00)
--- NOTE | 2016-08-13 12:41 | MB ---
cc: ALEKSANDAR BLANCO DATE OF CONSULTATION: 08/13/2016. REASON FOR CONSULTATION / CHIEF COMPLAINT: Large pulmonary emboli in a patient with metastatic breast cancer. PATIENT PROFILE: The patient is a 75-year-old white male. He is . He has two children, both sons. He was born in [place]. He has lived in [place] for twelve years. He stopped smoking in 1968. Alcohol intake is minimal. HISTORY OF PRESENT ILLNESS: The patient is a 75-year-old male whose history dates back to December, when he had a bilateral mastectomy for bilateral breast cancers. Each breast cancer was a pathologic T1c N0 M0 breast cancer. Both breast cancers were ER/SC-positive and HER-2/Edward negative. The patient was treated with Arimidex by Dr. Chandra Ford. On 12/22/2015, he had a CT scan showing solitary uptake at T10. An MRI of the thoracic spine showed a metastatic lesion to T10. A biopsy of the spine on 01/20/2016 showed metastatic breast cancer, ER positive, SC positive. The patient was started on tamoxifen. He did well, and according to the family, the most recent radiographic studies showed resolution of the single metastatic lesion. The patient tolerated the tamoxifen uneventfully until presently. During the past several weeks, he noted increasing shortness of breath. He was treated for an upper respiratory tract infection when he had a cough and sputum production. The symptoms of the respiratory tract infection resolved but he developed profound exertional shortness of breath with minimal activity. It is for this reason that he went to the emergency room. A CT angiogram dated 08/12/2016 shows multiple bilateral pulmonary large filling defects centrally. The conclusion reads: "Large central pulmonary emboli bilaterally". There has been no history of calf or thigh swelling. There has been no history of a hypercoagulable state. The only medication that he takes that could predispose him to thrombosis is the tamoxifen. I was contacted last night concerning the possibility of using tPA. Given his history of metastatic breast cancer, I felt that it was imperative that he have imaging of the brain to make sure that there are no metastases which would be an absolute contraindication to lytic therapy. The MRI performed on 08/13/2016 is unremarkable without evidence of metastatic disease. The patient had an MRI of the cervical spine on 08/13/2016 showing arthritic changes and no bony metastatic disease. An MRI of the thoracic spine on 08/13/2016 shows focal diffuse decreased signal throughout the body of T10 which correlates with diffuse sclerosis of the T10 vertebral body. An MRI of the lumbar spine shows no evidence of metastatic disease. Hemoglobin is 14, white count 9900 and platelets are 236,000. The patient has been started on heparin. His PTT is 85. Lytes, BUN and creatinine notable for a BUN of 26, creatinine is 1.9. A BNP is 392. The patient had an echocardiogram on 08/13/2016. The ejection fraction is 60% to 65%. The right ventricular cavity is moderately dilated. Systolic function was reduced. The pulmonary artery systolic pressure was severely increased. PA peak pressure was 85. Currently the patient remains short of breath. He tells me that if he tries to do anything other than sit he becomes uncomfortable. There is no chest pain or pleuritic pain. PAST SURGICAL HISTORY: 1. Bilateral mastectomies for pathologic T1c N0 M0, ER-positive, HER-2/Edward negative breast cancers in 12/2012. 2. Cataract surgery. PAST MEDICAL HISTORY: 1. Stage IV breast cancer with solitary metastatic lesion to T10. 2. Mild chronic renal failure. 3. Elevated cholesterol. 4. Hypertension. MEDICATIONS PRIOR TO ADMISSION: 1. Augmentin. 2. Aspirin. 3. B-12. 4. Fenofibrate. 5. Losartan. 6. Metoprolol. 7. A multivitamin. 8. Simvastatin. 9. Tamoxifen. ALLERGIES: NO KNOWN ALLERGIES. FAMILY HISTORY: Notable for a sister who apparently had a blood clot. ROS: 12 point review of systems notable only for SOB PHYSICAL EXAMINATION: GENERAL: The physical exam reveals a robust-appearing gentleman who is short of breath when he moves about. VITAL SIGNS: Blood pressure is 120/60, respiratory rate is 20, pulse 80, afebrile. 02 sat 95% on two liters. HEAD, EYES, EARS, NOSE, THROAT: Head is normocephalic. The sclerae and conjunctivae are normal. Oropharynx unremarkable. LYMPHATIC: No adenopathy. HEART: Regular rhythm. LUNGS: Clear. ABDOMEN: Abdomen soft. No hepatosplenomegaly. EXTREMITIES: Trace edema. There is no calf swelling. MUSCULOSKELETAL: No bone pain. NEUROLOGIC: No weakness. ASSESSMENT: The patient is a 75-year male who has huge bilateral central pulmonary emboli. He has significant right ventricular strain with severe pulmonary hypertension. He is short of breath with minimal exertion. RECOMMENDATIONS: 1. There are two options: One option is simply to use heparin and further anticoagulation following this. The second is to use tPA. There probably would not be a difference in mortality. He is much more likely to resolve the central pulmonary emboli with tPA. In addition, he has relative indications for using this given the size of the pulmonary emboli, the right ventricular strain and significant shortness of breath. I reviewed with the patient and the risks. There is a 1.5% chance of intracerebral hemorrhage. The risk of bleeding associated with tPA is approximately 9%; they are significantly less with heparin. Given the ability to more rapidly reverse his current situation, he has chosen to have tPA. There is no absolute contraindication in this gentleman. PLAN: The patient will be treated with tPA. I have spoken with the critical care physician. MD SERAFIN Landeros/EVELINA /11:18 AM /12:27 PM PAUL
[2016-08-13] MEDS: SODIUM CHLOR 0.9% 1000 ML INJ 1,000 ML IV SCH ×2 (12:56→22:49)
--- NOTE | 2016-08-13 13:42 | EKG ---
Date Performed: 08/12/2016 Time Performed: 18:24:22 PTAGE: 75 years EKG: Sinus arrhythmia Extensive ST-T changes may be due to myocardial ischemia Compared to previ ous tracing, the anterior T wave changes are more prominent, consider ischemia. Sinus rate has increa sed Abnormal ECG PREVIOUS TRACING : 10/06/2008 15.44 DOCTOR: Scotty Hernandez Interpretating Date/Time 08/13/2016 13:40:19
[2016-08-13 20:13] LABS: HEMATOCRIT 35.2 % (39.0-51.0); MEAN CELL VOLUME 82.9 FL (80.0-100.0); MEAN CORPUSCULAR HEMOGLOBIN 27.2 PG (27.0-34.0); MEAN CORPUSCULAR HGB CONC 32.8 % (32.0-36.0); PLATELET COUNT 193 TH/MM3 (150-450); RED BLOOD COUNT 4.25 MIL/MM3 (4.50-5.90); RED CELL DISTRIBUTION WIDTH 14.6 % (11.6-17.2); REVIEW FLAG FINAL
[2016-08-13] MEDS: METOPROLOL TARTRATE 25 MG TAB PO SCH (21:26)
[2016-08-13] MEDS: AMOXICILLIN/CLAVULANATE K 875 MG TAB PO SCH (21:26)
[2016-08-13] MEDS: PRAVASTATIN SOD 80 MG TAB PO SCH (21:26)
[2016-08-14] VITALS (14 sets, daily range): BP systolic 116–143; BP diastolic 55–66; PULSE 76–94; RESP 20–27; TEMP 98.1–99.2; O2SAT 94–99
[2016-08-14] MEDS: RESP: ALBUTEROL 2.5 MG/IPRATROPIUM 0.5 MG NEB (SCH) INH ×4 (03:35→20:42)
[2016-08-14] MEDS: CHLORHEXIDINE GLUCONATE 2 % 1 PACK (2 CLOTHS) TOP SCH ×2 (03:58→20:45)
--- NOTE | 2016-08-14 09:08 | HHI.CCPN ---
Subjective Remarks/Hospital Course 75 yo WM with PMH of HTN, hyperlipidemia, CKD stage III, and breast cancer with T10 vertebral body metastasis. He presented to [facility] Emergency department with 3-4 week history of shortness of breath and was found to have bilateral central pulmonary emboli. He states he has been having a cough, at times productive of phlegm, for about 4 weeks. He has had some dizziness and pre-syncope with cough. Denies chest pain or hemoptysis. Denies leg pain or swelling. Denies travel or prior history of VTE. He was originally diagnosed with URI and took a course of antibiotics without relief. He was again started on augmentin 08/08/16 per PMD. He had fever up to 101.9 this week. Today Tmax was 99.9. Today he had worsening shortness of breath and fell in the shower after a possible syncopal event. He denies head trauma. His states his BP was 82/50 at 1:30 this afternoon. He has strong family history of breast cancer including multiple male family members with history of breast cancer. In November 2012 he noted irregularity of his right nipple and had an mammogram which reveals bilateral breast masses. 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 BRCA positive. He underwent bilateral mastectomy and was started on anastrazole in march of 2013. He states he also underwent radiation therapy. He was continued on anastrazole until tumor marker became elevated in October 2015. PET scan 12/22/15 showed a solitary uptake of T10 vertebra. MRI T spine was consistent with metastasis. Biopsy of the T10 lesion was c/w breast cancer, ER positive, IN negative. He was started on Tamoxifen in December of 2015. He was followed by Dr. Ford but has been under the care of Dr. De La Torre since the former practice closed. He had PET scan 08/03/16 and report shows previously hypermetabolic T10 lesion now with photopenic defect suggesting interval treatment. 08/14 Patient s/p TPA yesterday for PE. Awake and alert on 2L oxygen with good sats. Afebrile. Objective Vital Signs Date Time Temp Pulse Resp B/P Pulse Ox O2 Delivery O2 Flow Rate FiO2 08/14/16 08:01 94 Nasal Cannula 2.00 08/14/16 06:00 80 08/14/16 04:00 98.7 22 128/59 Intake and Output 08/13/16 08/13/16 08/14/16 08:00 16:00 00:00 Intake Total 123 ml 1206 ml 917 ml Output Total 300 ml 300 ml 750 ml Balance -177 ml 906 ml 167 ml Result Diagram: 08/13/16 1948 08/12/16 1830 Other Results Laboratory Tests Test 08/13/16 08/13/16 08/13/16 10:33 11:19 19:48 Activated Partial 54.5 SEC 54.0 SEC Thromboplast Time White Blood Count 10.0 TH/MM3 Red Blood Count 4.25 MIL/MM3 Hemoglobin 11.5 GM/DL Hematocrit 35.2 % Mean Corpuscular Volume 82.9 FL Mean Corpuscular Hemoglobin 27.2 PG Mean Corpuscular Hemoglobin 32.8 % Concent Red Cell Distribution Width 14.6 % Platelet Count 193 TH/MM3 Mean Platelet Volume 8.8 FL Imaging Last Impressions Thoracic Spine MRI 08/13/16 0000 Signed Impressions: Service Date/Time: Saturday, August 13, 2016 08:06 - CONCLUSION: 1. Focal diffuse decreased signal throughout the body of T10 which correlates with diffuse sclerosis of the T10 vertebral body on the recent CT scan. There is no increased signal on T2-weighted images and there is no abnormal enhancement on the postcontrast images. In this patient with a history of breast cancer, this maybe an old metastatic deposit. Therefore, recommend a bone scan for further evaluation. 2. The rest of the examination is grossly unremarkable. Merritt Hayes MD Lumbar Spine MRI 08/13/16 0000 Signed Impressions: Service Date/Time: Saturday, August 13, 2016 08:06 - CONCLUSION: 1. Grade 1 anterior spondylolisthesis of L4 over L5. 2. Moderate spinal canal stenosis L4-5. 3. There is disc dehydration at all levels and there is broad-based bulging at multiple levels. 4. There is primary bony degenerative changes and disc degeneration throughout the lumbar spine. 5. No evidence of bony metastatic disease is seen at this time. Merritt Hayes MD Cervical Spine MRI 08/13/16 0000 Signed Impressions: Service Date/Time: Saturday, August 13, 2016 08:06 - CONCLUSION: 1. Mild primary bony degenerative changes involving the mid to lower cervical spine with disc degeneration and disc space narrowing at C6-7. 2. Mild broad-based bulging at C5-6 and C6-7. 3. No definite bony metastatic disease is seen. Merritt Hayes MD Brain MRI 08/13/16 0000 Signed Impressions: Service Date/Time: Saturday, August 13, 2016 08:06 - CONCLUSION: 1. Unremarkable MRI of the brain for patient's age. 2. Moderate bilateral chronic maxillary sinus disease. 3. No evidence of brain metastatic disease. Merritt Hayes MD CT Angiography [id number]/12/[id number] Signed Impressions: Service Date/Time: Friday, August 12, 2016 19:22 - CONCLUSION: 1. Large central pulmonary emboli bilaterally. Tushar Lake MD Chest X-Ray [id number] Signed Impressions: Service Date/Time: Friday, August 12, 2016 18:43 - CONCLUSION: 1. No acute findings. Tushar Lake MD Lower Extremity Ultrasound 08/12/16 0000 Signed Impressions: Service Date/Time: Friday, August 12, 2016 22:12 - CONCLUSION: Long segment DVT of the left lower extremity as above. No DVT on the right. Landon Nance MD Objective Remarks GENERAL: Well-nourished, well-developed patient lying in be din NAD SKIN: Warm and dry. HEAD: Atraumatic. Normocephalic. EYES: Pupils equal and round. No scleral icterus. No injection or drainage. ENT: No nasal bleeding or discharge. Mucous membranes pink and moist. NECK: Trachea midline. No JVD. CARDIOVASCULAR: Regular rate and rhythm. No murmurs rubs or gallops. RESPIRATORY: Mildly tachypneic but without accessory muscle use. Clear to auscultation w/o w/r/r. Breath sounds equal bilaterally. GASTROINTESTINAL: Abdomen soft, non-tender, nondistended. bowel sounds present. MUSCULOSKELETAL: Extremities without clubbing, cyanosis. L leg with mild swelling but no erythema or warmth, no mottling, pulses intact. NEUROLOGICAL: Awake and alert. No obvious cranial nerve deficits. Motor grossly within normal limits. Normal speech. Oriented 4. Strength 5 out of 5 in all extremities. A/P Problem List: (1) Pulmonary embolism ICD Code: I26.99 Status: Acute (2) HTN (hypertension) ICD Code: I10 Status: Chronic (3) Breast cancer ICD Code: C50.919 Status: Chronic (4) Hyperlipidemia ICD Code: E78.5 Status: Chronic Assessment and Plan NEURO: Awake and alert RESP:- Pulmonary embolism Continue with oxygen keep sat 92%. IS q 2 hour awake. CV: History of hypertension Hyperlipidemia Monitor HR and BP keep MAP>65mmHg On Lopressor 25mg BID, Pravachol, TriCor Echo showed EF 60-65%, grade I diastolic dysfunction, RV pressure overload, severe pulm HTN PAP 85mmHg GI: Heart healthy diet FEN/RENAL: CKD Stage III Received IV contrast 08/12/16. Monitor renal function, I/O's, avoid nephrotoxins, IVF- NS@84ml/hr ID: Continue with Augmentin, monitor for signs of infections ( Fever, WBC) HEME: Stage IV breast cancer Stage I at time of diagnosis in 12/2012 s/p bilateral mastectomy, bilateral breast radiation, chemotherapy with anastrazole. T10 metastasis diagnosed 12/2015, then started on tamoxifen Submassive pulmonary embolism with RV strain= s/p TPA L leg DVT L SFA to popliteal. Monitor CBC, Coags, start Heparin drip per protocol. Heme is following-Dr. Chavez ENDO: low-dose insulin sliding scale if indicated. PROPH: Protonix 40 mg by mouth daily for stress ulcer prophylaxis. Start Heparin drip Follow up on labs Will sign off and transfer care to [facility] Level 3 Problem Qualifiers (1) Pulmonary embolism: Aaron Maldonado MD Aug 14, 2016 09:08 Patient and his updated at bedside. He states he is full code CCT 90 minutes exclusive of separately procedures. Discussed with Dr. Rao who is assuming care this morning as MRI is pending. Problem Qualifiers (1) Pulmonary embolism: Aaron Maldonado MD Aug 14, 2016 09:08
[2016-08-14] MEDS: FENOFIBRATE 145 MG TAB PO SCH (09:57)
[2016-08-14] MEDS: PANTOPRAZOLE SOD 40 MG DELAYED RELEASE TAB PO SCH (09:57)
[2016-08-14] MEDS: AMOXICILLIN/CLAVULANATE K 875 MG TAB PO SCH ×2 (09:57→21:01)
[2016-08-14] MEDS: SODIUM CHLORIDE 0.9% FLUSH 5 ML FLUSH IV FLUSH SCH ×2 (09:58→20:39)
[2016-08-14] MEDS: METOPROLOL TARTRATE 25 MG TAB PO SCH ×2 (09:58→21:01)
[2016-08-14] MEDS: MULTIVITAMIN TAB PO SCH (09:58)
[2016-08-14 10:35] LABS: AUTOMATED NEUTROPHIL # 6.7 TH/MM3 (1.8-7.7); BASOPHIL # 0.1 TH/MM3 (0-0.2); BASOPHIL % 0.6 % (0.0-2.0); EOSINOPHIL % 10.7 % (0.0-4.0); HEMATOCRIT 33.5 % (39.0-51.0); HEMO FLAGS DIFF FINAL; LYMPH % 8.4 % (9.0-44.0); LYMPHOCYTE # 0.8 TH/MM3 (1.0-4.8); MEAN CELL VOLUME 82.5 FL (80.0-100.0); MEAN CORPUSCULAR HGB CONC 32.8 % (32.0-36.0); MONO % 6.4 % (0.0-8.0); NEUT % 73.9 % (16.0-70.0); PLATELET COUNT 187 TH/MM3 (150-450); RED BLOOD COUNT 4.07 MIL/MM3 (4.50-5.90); RED CELL DISTRIBUTION WIDTH 14.8 % (11.6-17.2); WHITE BLOOD COUNT 9.1 TH/MM3 (4.0-11.0)
[2016-08-14 10:43] LABS: APTT (PATIENT) 26.4 SEC (24.3-30.1); INTERNATIONAL NORMALIZED RATIO 1.3 RATIO; PROTHROMBIN TIME - PATIENT 14.4 SEC (9.8-11.6)
[2016-08-14 11:06] LABS: ALKALINE PHOSPHATASE 23 U/L (45-117); ALT (GPT) 16 U/L (12-78); ANION GAP 9 MEQ/L (5-15); BICARBONATE 23.3 MEQ/L (21.0-32.0); BLOOD UREA NITROGEN 17 MG/DL (7-18); CHLORIDE 106 MEQ/L (98-107); GLOMERULAR FILTRATION RATE 41 ML/MIN (>89); POTASSIUM 3.7 MEQ/L (3.5-5.1); SODIUM (NA) 138 MEQ/L (136-145); TOTAL BILIRUBIN ADULT 0.3 MG/DL (0.2-1.0)
[2016-08-14 11:29] LABS: AST (GOT) 16 U/L (15-37)
[2016-08-14] MEDS: HEPARIN-D5W INJ 250 ML IV SCH ×2 (11:48→21:04)
--- NOTE | 2016-08-14 12:28 | PD.ONC.PN ---
Subjective Subjective Remarks Afebrile overnight. Patient feeling very well today. He states he has been breathing much better since tpa was administered yesterday. Objective Data Date Time Temp Pulse Resp B/P Pulse Ox O2 Delivery O2 Flow Rate FiO2 08/14/16 08:01 94 Nasal Cannula 2.00 08/14/16 06:00 80 08/14/16 04:00 81 08/14/16 04:00 98.7 81 22 128/59 95 08/14/16 02:00 78 08/14/16 00:00 82 08/14/16 00:00 99.2 82 20 116/55 94 08/13/16 22:00 93 08/13/16 20:00 94 08/13/16 20:00 100.0 94 22 113/55 95 08/13/16 19:25 96 Nasal Cannula 2.00 08/13/16 18:00 111 08/13/16 16:00 82 08/13/16 16:00 98.9 99 20 157/67 96 08/13/16 14:00 82 08/14/16 08/14/16 08/14/16 07:00 15:00 23:00 Intake Total 796 ml Output Total 350 ml Balance 446 ml Result Diagram: 08/14/16 1019 08/14/16 1019 Laboratory Results Laboratory Tests Test 08/13/16 08/14/16 19:48 10:19 White Blood Count 10.0 TH/MM3 9.1 TH/MM3 Red Blood Count 4.25 MIL/MM3 4.07 MIL/MM3 Hemoglobin 11.5 GM/DL 11.0 GM/DL Hematocrit 35.2 % 33.5 % Mean Corpuscular Volume 82.9 FL 82.5 FL Mean Corpuscular Hemoglobin 27.2 PG 27.0 PG Mean Corpuscular Hemoglobin 32.8 % 32.8 % Concent Red Cell Distribution Width 14.6 % 14.8 % Platelet Count 193 TH/MM3 187 TH/MM3 Mean Platelet Volume 8.8 FL 8.3 FL Neutrophils (%) (Auto) 73.9 % Lymphocytes (%) (Auto) 8.4 % Monocytes (%) (Auto) 6.4 % Eosinophils (%) (Auto) 10.7 % Basophils (%) (Auto) 0.6 % Neutrophils # (Auto) 6.7 TH/MM3 Lymphocytes # (Auto) 0.8 TH/MM3 Monocytes # (Auto) 0.6 TH/MM3 Eosinophils # (Auto) 1.0 TH/MM3 Basophils # (Auto) 0.1 TH/MM3 CBC Comment DIFF FINAL Differential Comment Prothrombin Time 14.4 SEC Prothromb Time International 1.3 RATIO Ratio Activated Partial 26.4 SEC Thromboplast Time Sodium Level 138 MEQ/L Potassium Level 3.7 MEQ/L Chloride Level 106 MEQ/L Carbon Dioxide Level 23.3 MEQ/L Anion Gap 9 MEQ/L Blood Urea Nitrogen 17 MG/DL Creatinine 1.65 MG/DL Estimat Glomerular Filtration 41 ML/MIN Rate Random Glucose 113 MG/DL Calcium Level 7.7 MG/DL Phosphorus Level 2.0 MG/DL Magnesium Level 2.0 MG/DL Total Bilirubin 0.3 MG/DL Aspartate Amino Transf 16 U/L (AST/SGOT) Alanine Aminotransferase 16 U/L (ALT/SGPT) Alkaline Phosphatase 23 U/L Total Protein 5.8 GM/DL Albumin 2.7 GM/DL Culture Results Microbiology Date/Time Procedure Status Source Growth 08/12/16 18:25 Aerobic Blood Culture - Preliminary Resulted Blood Peripheral NO GROWTH IN 2 DAYS 08/12/16 18:25 Anaerobic Blood Culture - Preliminary Resulted Blood Peripheral NO GROWTH IN 2 DAYS 08/12/16 18:30 Aerobic Blood Culture - Preliminary Resulted Blood Peripheral NO GROWTH IN 2 DAYS 08/12/16 18:30 Anaerobic Blood Culture - Preliminary Resulted Blood Peripheral NO GROWTH IN 2 DAYS Administered Medications Medications (Trade) Dose Ordered Sig/Melanie Route PRN Reason Start Time Stop Time Status Last Admin Dose Admin IV Flush (NS Flush) 2 ml BID IV FLUSH 08/13/16 09:00 08/14/16 09:58 Pantoprazole Sodium (Protonix) 40 mg DAILY PO 08/13/16 09:00 08/14/16 09:57 Miscellaneous Information 1 [id number] XX 08/13/16 00:45 08/13/16 00:45 Chlorhexidine Gluconate (Chlorhexidine 2% Cloth) 3 pack Taper DAILY@04 TOP 08/13/16 04:00 08/09/17 03:59 08/14/16 03:58 Amoxicillin/ Clavulanate Potassium (Augmentin) 875 mg BID PO 08/13/16 21:00 08/14/16 09:57 Fenofibrate (Tricor) 145 mg DAILY PO 08/14/16 09:00 08/14/16 09:57 Metoprolol Tartrate (Lopressor) 25 mg BID PO 08/13/16 21:00 08/14/16 09:58 Multivitamins (Theragran) 1 tab DAILY PO 08/14/16 09:00 08/14/16 09:58 Pravastatin Sodium 80 mg 80 mg HS PO 08/13/16 21:00 08/13/16 21:26 Sodium Chloride 1,000 ml @ 84 mls/hr [id number] IV 08/13/16 13:00 08/13/16 22:49 Heparin Sodium/ Dextrose (Heparin-D5W Inj) 250 ml @ 0 mls/hr TITRATE IV 08/14/16 09:00 08/14/16 11:48 Objective Remarks GENERAL: Obese elderly male, sitting up in bed in nad. SKIN: Warm and dry. ecchymoses noted along left flank and left hip. HEAD: Normocephalic. EYES: No injection or drainage. NECK: Supple, trachea midline. CARDIOVASCULAR: Regular rate and rhythm RESPIRATORY: diminished at bases. anterior feng clear. On 2L O2 via NC GASTROINTESTINAL: Abdomen soft, non-tender, nondistended. EXTREMITIES: No cyanosis, or edema. MUSCULOSKELETAL: Adequate muscle tone. NEUROLOGICAL: No obvious focal deficit. Awake, alert, and oriented x3. Assessment/Plan Problem List: (1) Pulmonary embolism Status: Acute Plan: 08/14/16: continue heparin drip. monitor CBC --s/p tpA --on heparin drip (2) Metastatic breast cancer Status: Chronic Plan: History: December,: bilateral mastectomy for bilateral breast cancers. Each breast cancer was a pathologic T1c N0 M0 breast cancer. Both breast cancers were ER/OK- positive and HER-2/Edward negative. The patient was treated with Arimidex by Dr. Chandra Ford. November,:CT showed solitary uptake at T10. MRI thoracic spine showed a metastatic lesion to T10. biopsy showed metastatic breast cancer, ER positive, OK positive. started on tamoxifen. most recent radiographic studies showed resolution of the single metastatic lesion. --MRI brain showed no mets Assessment 75y/o male with large pulmonary emboli in a patient with metastatic breast cancer. echo showed severe right ventricular strain with severe pulmonary hypertension Attending Statement less SOB, no more syncopy no bleeding. s/p TPA, now on heparin. will start elaquis. d/w pt and . The exam, history, and the medical decision-making described in the above note were completed with the assistance of the mid-level provider. I reviewed and agree with the findings presented. I attest that I had a [id number] encounter with the patient on the same day, and personally performed and documented my assessment and findings in the medical record. Problem Qualifiers (1) Pulmonary embolism: Brianda Malloy Aug 14, 2016 12:28 Woodrow De La Torre MD Aug 14, 2016 17:47
[2016-08-14] MEDS ORDERED: SODIUM PHOSPHATE INJ 15 MMOL in SODIUM CHLORIDE 0.9% INJ 150 ML IV ONE (13:00)
[2016-08-14] MEDS: SODIUM CHLOR 0.9% 1000 ML INJ 1,000 ML IV SCH ×2 (14:14→20:44)
[2016-08-14 16:08] LABS: APTT (PATIENT) 46.8 SEC (24.3-30.1)
[2016-08-14] MEDS: PRAVASTATIN SOD 80 MG TAB PO SCH (21:01)
[2016-08-14 21:08] LABS: APTT (PATIENT) 63.2 SEC (24.3-30.1)
[2016-08-15] VITALS (12 sets, daily range): BP systolic 103–140; BP diastolic 58–75; PULSE 68–96; RESP 18–23; TEMP 96.4–99.4; O2SAT 92–95
[2016-08-15] MEDS: RESP: ALBUTEROL 2.5 MG/IPRATROPIUM 0.5 MG NEB (SCH) INH ×4 (04:20→21:01)
[2016-08-15 07:25] LABS: AUTOMATED NEUTROPHIL # 5.5 TH/MM3 (1.8-7.7); BASOPHIL # 0.1 TH/MM3 (0-0.2); BASOPHIL % 0.6 % (0.0-2.0); EOSINOPHIL # 1.3 TH/MM3 (0-0.4); EOSINOPHIL % 14.8 % (0.0-4.0); HEMATOCRIT 31.3 % (39.0-51.0); HEMO FLAGS DIFF FINAL; LYMPH % 13.7 % (9.0-44.0); LYMPHOCYTE # 1.2 TH/MM3 (1.0-4.8); MEAN CELL VOLUME 83.4 FL (80.0-100.0); MEAN CORPUSCULAR HEMOGLOBIN 27.4 PG (27.0-34.0); MEAN CORPUSCULAR HGB CONC 32.8 % (32.0-36.0); MONO % 7.4 % (0.0-8.0); NEUT % 63.5 % (16.0-70.0); PLATELET COUNT 192 TH/MM3 (150-450); RED BLOOD COUNT 3.76 MIL/MM3 (4.50-5.90); RED CELL DISTRIBUTION WIDTH 14.8 % (11.6-17.2); WHITE BLOOD COUNT 8.7 TH/MM3 (4.0-11.0)
[2016-08-15 07:31] LABS: APTT (PATIENT) 84.6 SEC (24.3-30.1)
[2016-08-15 07:49] LABS: ALT (GPT) 14 U/L (12-78); ANION GAP 9 MEQ/L (5-15); AST (GOT) 17 U/L (15-37); BICARBONATE 23.6 MEQ/L (21.0-32.0); BLOOD UREA NITROGEN 13 MG/DL (7-18); CHLORIDE 109 MEQ/L (98-107); GLOMERULAR FILTRATION RATE 50 ML/MIN (>89); POTASSIUM 3.7 MEQ/L (3.5-5.1); SODIUM (NA) 142 MEQ/L (136-145)
[2016-08-15 07:51] LABS: ALKALINE PHOSPHATASE 21 U/L (45-117); TOTAL BILIRUBIN ADULT 0.2 MG/DL (0.2-1.0)
[2016-08-15] MEDS: FENOFIBRATE 145 MG TAB PO SCH (08:18)
[2016-08-15] MEDS: PANTOPRAZOLE SOD 40 MG DELAYED RELEASE TAB PO SCH (08:18)
[2016-08-15] MEDS: METOPROLOL TARTRATE 25 MG TAB PO SCH ×2 (08:18→20:24)
[2016-08-15] MEDS: MULTIVITAMIN TAB PO SCH (08:18)
[2016-08-15] MEDS: AMOXICILLIN/CLAVULANATE K 875 MG TAB PO SCH ×2 (08:18→20:24)
[2016-08-15] MEDS: SODIUM CHLORIDE 0.9% FLUSH 5 ML FLUSH IV FLUSH SCH ×2 (09:00→20:25)
--- NOTE | 2016-08-15 10:40 | HHI.PR ---
Subjective Remarks resting comfortably with no distress. denies sob but has occasional cough. d/w the RN and no acute issues over night. Objective Vitals Vital Signs Date Time Temp Pulse Resp B/P Pulse Ox O2 Delivery O2 Flow Rate FiO2 08/15/16 06:00 73 08/15/16 04:00 98.6 70 23 122/62 95 08/15/16 04:00 70 08/15/16 02:00 68 08/15/16 00:00 87 08/15/16 00:00 98.0 87 23 121/58 94 08/14/16 22:00 89 08/14/16 20:44 96 Nasal Cannula 2.00 08/14/16 20:00 86 08/14/16 20:00 98.5 86 22 130/60 95 08/14/16 18:00 94 08/14/16 16:00 80 08/14/16 16:00 98.1 80 24 134/63 94 08/14/16 14:00 76 08/14/16 12:00 80 08/14/16 12:00 98.8 80 27 132/63 94 I/O 08/14/16 08/14/16 08/14/16 08/15/16 08/15/16 08/15/16 07:00 15:00 23:00 07:00 15:00 23:00 Intake Total 796 ml 746 ml 1459 ml 1105 ml Output Total 350 ml 400 ml Balance 446 ml 346 ml 1459 ml 1105 ml Intake Oral 240 ml 240 ml 650 ml 450 ml IV Total 556 ml 506 ml 809 ml 655 ml Output Urine Total 350 ml 400 ml # Voids 1 2 # Bowel Movements 1 0 Result Diagram: 08/15/16 0642 08/15/16 0642 Imaging Last Impressions Thoracic Spine MRI 08/13/16 0000 Signed Impressions: Service Date/Time: Saturday, August 13, 2016 08:06 - CONCLUSION: 1. Focal diffuse decreased signal throughout the body of T10 which correlates with diffuse sclerosis of the T10 vertebral body on the recent CT scan. There is no increased signal on T2-weighted images and there is no abnormal enhancement on the postcontrast images. In this patient with a history of breast cancer, this maybe an old metastatic deposit. Therefore, recommend a bone scan for further evaluation. 2. The rest of the examination is grossly unremarkable. Merritt J. Siragusa, MD Lumbar Spine MRI 08/13/16 0000 Signed Impressions: Service Date/Time: Saturday, August 13, 2016 08:06 - CONCLUSION: 1. Grade 1 anterior spondylolisthesis of L4 over L5. 2. Moderate spinal canal stenosis L4-5. 3. There is disc dehydration at all levels and there is broad-based bulging at multiple levels. 4. There is primary bony degenerative changes and disc degeneration throughout the lumbar spine. 5. No evidence of bony metastatic disease is seen at this time. Merritt Hayes MD Cervical Spine MRI 08/13/16 0000 Signed Impressions: Service Date/Time: Saturday, August 13, 2016 08:06 - CONCLUSION: 1. Mild primary bony degenerative changes involving the mid to lower cervical spine with disc degeneration and disc space narrowing at C6-7. 2. Mild broad-based bulging at C5-6 and C6-7. 3. No definite bony metastatic disease is seen. Merritt Hayes MD Brain MRI 08/13/16 Signed Impressions: Service Date/Time: Saturday, August 13, 2016 08:06 - CONCLUSION: 1. Unremarkable MRI of the brain for patient's age. 2. Moderate bilateral chronic maxillary sinus disease. 3. No evidence of brain metastatic disease. Merritt Hayes MD CT Angiography 08/12/[id number] Signed Impressions: Service Date/Time: Friday, August 12, 2016 19:22 - CONCLUSION: 1. Large central pulmonary emboli bilaterally. Tushar Lake MD Chest X-Ray 08/12/[id number] Signed Impressions: Service Date/Time: Friday, August 12, 2016 18:43 - CONCLUSION: 1. No acute findings. Tushar Lake MD Lower Extremity Ultrasound 08/12/16 0000 Signed Impressions: Service Date/Time: Friday, August 12, 2016 22:12 - CONCLUSION: Long segment DVT of the left lower extremity as above. No DVT on the right. Landon Nance MD Objective Remarks GENERAL: This is a well-nourished, well-developed patient, in no apparent distress. CARDIOVASCULAR: Regular rate and regular rhythm without murmurs, gallops, or rubs. RESPIRATORY: mild bilateral wheezing GASTROINTESTINAL: Abdomen soft, non-tender, nondistended. Normal, active bowel sounds MUSCULOSKELETAL: Extremities without clubbing, cyanosis, or edema. NEURO: Alert & Oriented x4 to person, place, time, situation. Moves all ext x4 Medications and IVs Current Medications IV Flush (NS Flush) 2 ml UNSCH PRN IVF FLUSH AFTER USING IV ACCESS; Start 08/12 at 18:30; Stop 08/12/16 at 21:01; Status DC Aspirin (Aspirin Chew) 162 mg ONCE ONCE CHEW Last administered on 08/12/16 20 :11; Start 08/12/16 at 19:45; Stop 08/12/16 at 19:46; Status DC Heparin Sodium (Porcine) (Heparin Inj) 8,000 units ONCE ONCE IV Last administered on 08/12/16 20:32; Start 08/12/16 at 20:30; Stop 08/12/16 at 20:31 ; Status DC Heparin Sodium (Porcine) (Heparin Inj) 5,000 units UNSCH PRN IV APTT LESS THAN 25; Start 08/13/16 at 02:30; Stop 08/13/16 at 02:30; Status DC Heparin Sodium (Porcine) 2500 units 2,500 units UNSCH PRN IV APTT 25 TO 39; Start 08/13/16 at 02:30; Stop 08/13/16 at 02:30; Status DC Heparin Sodium/ Dextrose (Heparin-D5W Inj) 250 ml @ 0 mls/hr TITRATE IV Last administered on 08/12/16 20:35; Start 08/12/16 at 20:30; Stop 08/13/16 at 01:15 ; Status DC IV Flush (NS Flush) 2 ml BID IVF ; Start 08/12/16 at 21:00; Stop 08/13/16 at 01: 17; Status DC IV Flush (NS Flush) 2 ml UNSCH PRN IVF FLUSH AFTER USING IV ACCESS; Start 08/12 at 21:00; Stop 08/13/16 at 01:17; Status DC Miscellaneous Information Patient in critical care unit? Ass... Q361D XX ; Start 08/12/16 at 23:30; Stop 08/13/16 at 01:16; Status DC Chlorhexidine Gluconate (Chlorhexidine 2% Cloth) 3 pack DAILY@04 TOP ; Start 06/17 at 04:00; Stop 08/13/16 at 04:00; Status DC Chlorhexidine Gluconate (Chlorhexidine 2% Cloth) 3 pack UNSCH PRN TOP HYGIENIC CARE; Start 08/12/16 at 23:30; Stop 08/13/16 at 01:16; Status DC IV Flush (NS Flush) 2 ml UNSCH PRN IV FLUSH FLUSH AFTER USING IV ACCESS; Start 08/13/16 at 00:45 IV Flush (NS Flush) 2 ml BID IV FLUSH Last administered on 08/15/16 09:00; Start 08/13/16 at 09:00 Acetaminophen (Tylenol) 650 mg Q6H PRN PO PAIN 1-10 AND/OR FEVER >101F; Start 08/13/16 at 00:45 Pantoprazole Sodium (Protonix) 40 mg DAILY PO Last administered on 08/15/16 08 :18; Start 08/13/16 at 09:00 Ondansetron HCl (Zofran Inj) 4 mg Q6H PRN IV NAUSEA OR VOMITING; Start at 00:45 Albuterol/ Ipratropium (Duoneb Neb) 1 ampule Q6HR NEB INH Last administered on 08/15/16 04:20; Start 08/13/16 at 04:00 Albuterol Sulfate (Albuterol Neb) 2.5 mg Q2HR NEB PRN INH SOB/WHEEZING; Start 08/13/16 at 00:45 Miscellaneous Information 1 Q361D XX Last administered on 08/13/16 00:45; Start 08/13/16 at 00:45 Chlorhexidine Gluconate (Chlorhexidine 2% Cloth) 3 pack Taper DAILY@04 TOP Last administered on 08/14/16 20:45; Start 08/13/16 at 04:00; Stop 08/09/17 at 03:59 Chlorhexidine Gluconate (Chlorhexidine 2% Cloth) 3 pack UNSCH PRN TOP HYGIENIC CARE; Start 08/13/16 at 00:45 Heparin Sodium (Porcine) (Heparin Inj) 5,000 units UNSCH PRN IV APTT LESS THAN 25; Start 08/13/16 at 07:00; Stop 08/13/16 at 11:48; Status DC Heparin Sodium (Porcine) 2500 units 2,500 units UNSCH PRN IV APTT 25 TO 39; Start 08/13/16 at 07:00; Stop 08/13/16 at 11:48; Status DC Heparin Sodium/ Dextrose (Heparin-D5W Inj) 250 ml @ 0 mls/hr TITRATE IV Last administered on 08/13/16 06:31; Start 08/13/16 at 01:00; Stop 08/13/16 at 11:48 ; Status DC Gadobenate Dimeglumine (Multihance Pf Inj) 20 ml STK-MED ONCE IV Last administered on 08/13/16 09:00; Start 08/13/16 at 09:00; Stop 08/13/16 at 09:01 ; Status DC Amoxicillin/ Clavulanate Potassium (Augmentin) 875 mg BID PO Last administered on 08/15/16 08:18; Start 08/13/16 at 21:00 Fenofibrate (Tricor) 145 mg DAILY PO Last administered on 08/15/16 08:18; Start 08/14/16 at 09:00 Metoprolol Tartrate (Lopressor) 25 mg BID PO Last administered on 08/15/16 08: 18; Start 08/13/16 at 21:00 Multivitamins (Theragran) 1 tab DAILY PO Last administered on 08/15/16 08:18; Start 08/14/16 at 09:00 Pravastatin Sodium 80 mg 80 mg HS PO Last administered on 08/14/16 21:01; Start 08/13/16 at 21:00 Alteplase, Recombinant 100 mg/Sterile Water 100 ml @ 0 mls/hr ONCE ONCE IV Last administered on 08/13/16 12:25; Start 08/13/16 at 12:00; Stop 08/13/16 at 12:01; Status DC Sodium Chloride 1,000 ml @ 84 mls/hr [id number] IV Last administered on 20:44; Start 08/13/16 at 13:00 Heparin Sodium/ Dextrose 250 ml @ 0 mls/hr TITRATE IV Last administered on 08/14 21:04; Start 08/14/16 at 09:00 Sodium Phosphate/ Sodium Chloride (Sodium Phosphate Inj/NS Inj) 155 ml @ 38.75 mls/ hr ONCE ONCE IV Last administered on 08/14/16 14:14; Start 08/14/16 at 13:00; Stop 08/14/16 at 16:59; Status DC A/P Assessment and Plan Pulmonary embolism Continue with oxygen keep sat 92%. IS q 2 hour awake. on heparin drip hematology following History of hypertension Hyperlipidemia Monitor HR and BP keep MAP>65mmHg On Lopressor 25mg BID, Pravachol, TriCor Echo showed EF 60-65%, grade I diastolic dysfunction, RV pressure overload, severe pulm HTN PAP 85mmHg CKD Stage III Received IV contrast 08/12/16. Monitor renal function, I/O's, avoid nephrotoxins, IVF- NS@84ml/hr Stage IV breast cancer Stage I at time of diagnosis in 12/2012 s/p bilateral mastectomy, bilateral breast radiation, chemotherapy with anastrazole. T10 metastasis diagnosed 12/2015, then started on tamoxifen Submassive pulmonary embolism with RV strain= s/p TPA L leg DVT L SFA to popliteal. Monitor CBC, Coags, start Heparin drip per protocol. Heme is following-Dr. Chavez PROPH: Protonix 40 mg by mouth daily for stress ulcer prophylaxis. on Heparin drip will transfer to telemetry. Radha Lerma MD Aug 15, 2016 10:40
[2016-08-15] MEDS: guaiFENesin SOLUTION 200 MG/10 ML CUP PO PRN ×2 (11:26→20:32)
--- NOTE | 2016-08-15 12:02 | PD.ONC.PN ---
Subjective Subjective Remarks Afebrile overnight. patient resting comfortably without complaint. Wants to know when he is being transferred out of [facility] [place] Objective Data Date Time Temp Pulse Resp B/P Pulse Ox O2 Delivery O2 Flow Rate FiO2 08/15/16 06:00 73 08/15/16 04:00 98.6 70 23 122/62 95 08/15/16 04:00 70 08/15/16 02:00 68 08/15/16 00:00 87 08/15/16 00:00 98.0 87 23 121/58 94 08/14/16 22:00 89 08/14/16 20:44 96 Nasal Cannula 2.00 08/14/16 20:00 86 08/14/16 20:00 98.5 86 22 130/60 95 08/14/16 18:00 94 08/14/16 16:00 80 08/14/16 16:00 98.1 80 24 134/63 94 08/14/16 14:00 76 08/15/16 08/15/16 08/15/16 07:00 15:00 23:00 Intake Total 1105 ml Balance 1105 ml Result Diagram: 08/15/16 0642 08/15/1642 Laboratory Results Laboratory Tests Test 08/14/16 08/14/16 08/15/16 15:30 20:00 06:42 Activated Partial 46.8 SEC 63.2 SEC 84.6 SEC Thromboplast Time White Blood Count 8.7 TH/MM3 Red Blood Count 3.76 MIL/MM3 Hemoglobin 10.3 GM/DL Hematocrit 31.3 % Mean Corpuscular Volume 83.4 FL Mean Corpuscular Hemoglobin 27.4 PG Mean Corpuscular Hemoglobin 32.8 % Concent Red Cell Distribution Width 14.8 % Platelet Count 192 TH/MM3 Mean Platelet Volume 8.7 FL Neutrophils (%) (Auto) 63.5 % Lymphocytes (%) (Auto) 13.7 % Monocytes (%) (Auto) 7.4 % Eosinophils (%) (Auto) 14.8 % Basophils (%) (Auto) 0.6 % Neutrophils # (Auto) 5.5 TH/MM3 Lymphocytes # (Auto) 1.2 TH/MM3 Monocytes # (Auto) 0.6 TH/MM3 Eosinophils # (Auto) 1.3 TH/MM3 Basophils # (Auto) 0.1 TH/MM3 CBC Comment DIFF FINAL Differential Comment Sodium Level 142 MEQ/L Potassium Level 3.7 MEQ/L Chloride Level 109 MEQ/L Carbon Dioxide Level 23.6 MEQ/L Anion Gap 9 MEQ/L Blood Urea Nitrogen 13 MG/DL Creatinine 1.39 MG/DL Estimat Glomerular Filtration 50 ML/MIN Rate Random Glucose 103 MG/DL Calcium Level 7.5 MG/DL Total Bilirubin 0.2 MG/DL Aspartate Amino Transf 17 U/L (AST/SGOT) Alanine Aminotransferase 14 U/L (ALT/SGPT) Alkaline Phosphatase 21 U/L Total Protein 5.6 GM/DL Albumin 2.6 GM/DL Culture Results Microbiology Date/Time Procedure Status Source Growth 08/12/16 18:25 Aerobic Blood Culture - Preliminary Resulted Blood Peripheral NO GROWTH IN 3 DAYS 08/12/16 18:25 Anaerobic Blood Culture - Preliminary Resulted Blood Peripheral NO GROWTH IN 3 DAYS 08/12/16 18:30 Aerobic Blood Culture - Preliminary Resulted Blood Peripheral NO GROWTH IN 3 DAYS 08/12/16 18:30 Anaerobic Blood Culture - Preliminary Resulted Blood Peripheral NO GROWTH IN 3 DAYS Administered Medications Medications (Trade) Dose Ordered Sig/Melanie Route PRN Reason Start Time Stop Time Status Last Admin Dose Admin IV Flush (NS Flush) 2 ml BID IV FLUSH 08/13/16 09:00 08/15/16 09:00 Pantoprazole Sodium (Protonix) 40 mg DAILY PO 08/13/16 09:00 08/15/16 08:18 Miscellaneous Information 1 Q361D XX 08/13/16 00:45 08/13/16 00:45 Chlorhexidine Gluconate (Chlorhexidine 2% Cloth) 3 pack Taper DAILY@04 TOP 08/13/16 04:00 08/09/17 03:59 08/14/16 20:45 Amoxicillin/ Clavulanate Potassium (Augmentin) 875 mg BID PO 08/13/16 21:00 08/15/16 08:18 Fenofibrate (Tricor) 145 mg DAILY PO 08/14/16 09:00 08/15/16 08:18 Metoprolol Tartrate (Lopressor) 25 mg BID PO 08/13/16 21:00 08/15/16 08:18 Multivitamins (Theragran) 1 tab DAILY PO 08/14/16 09:00 08/15/16 08:18 Pravastatin Sodium 80 mg 80 mg HS PO 08/13/16 21:00 08/14/16 21:01 Sodium Chloride 1,000 ml @ 84 mls/hr [id number] IV 08/13/16 13:00 08/14/16 20:44 Heparin Sodium/ Dextrose (Heparin-D5W Inj) 250 ml @ 0 mls/hr TITRATE IV 08/14/16 09:00 08/14/16 21:04 Guaifenesin (Robitussin Liq) 200 mg Q4H PRN PO COUGH 08/15/16 10:30 08/15/16 11:26 Objective Remarks GENERAL: Pleasant male, sitting up in bed in nad. SKIN: Warm and dry. e HEAD: Normocephalic. EYES: No injection or drainage. NECK: Supple, trachea midline. CARDIOVASCULAR: Regular rate and rhythm RESPIRATORY: diminished at bases. anterior feng clear. GASTROINTESTINAL: Abdomen soft, non-tender, nondistended. EXTREMITIES: No cyanosis, or edema. MUSCULOSKELETAL: Adequate muscle tone. NEUROLOGICAL: No obvious focal deficit. Awake, alert, and oriented x3. Assessment/Plan Problem List: (1) Pulmonary embolism Status: Acute Plan: 08/15: start Eliquis this evening if covered by insurance. will ask case management to assist in finding out. 08/14/16: continue heparin drip. monitor CBC --s/p tpA --on heparin drip (2) Metastatic breast cancer Status: Chronic Plan: History: December,: bilateral mastectomy for bilateral breast cancers. Each breast cancer was a pathologic T1c N0 M0 breast cancer. Both breast cancers were ER/[place]- positive and HER-2/Edward negative. The patient was treated with Arimidex by Dr. Chandra Ford. November,:CT showed solitary uptake at T10. MRI thoracic spine showed a metastatic lesion to T10. biopsy showed metastatic breast cancer, ER positive, [place] positive. started on tamoxifen. most recent radiographic studies showed resolution of the single metastatic lesion. --MRI brain showed no mets Assessment 75y/o male with large pulmonary emboli in a patient with metastatic breast cancer. echo showed severe right ventricular strain with severe pulmonary hypertension Attending Statement sob, no cp stop heparin and start eliquis. The exam, history, and the medical decision-making described in the above note were completed with the assistance of the mid-level provider. I reviewed and agree with the findings presented. I attest that I had a [id number] encounter with the patient on the same day, and personally performed and documented my assessment and findings in the medical record. Problem Qualifiers (1) Pulmonary embolism: Brianda Malloy Aug 15, 2016 12:01 Woodrow De La Torre MD Aug 16, 2016 08:27
[2016-08-15] MEDS ORDERED: APIX5TAB PO ×2 (12:03→16:01)
[2016-08-15] MEDS: HEPARIN-D5W INJ 250 ML IV SCH (16:21)
[2016-08-15] MEDS: PRAVASTATIN SOD 80 MG TAB PO SCH (20:24)
[2016-08-15] MEDS ORDERED: APIXABAN 5 MG TABLET PO SCH (21:00)
[2016-08-16] VITALS (10 sets, daily range): BP systolic 123–166; BP diastolic 58–71; PULSE 80–93; RESP 16–20; TEMP 97.2–100; O2SAT 91–97
[2016-08-16] MEDS: guaiFENesin SOLUTION 200 MG/10 ML CUP PO PRN ×2 (01:51→09:50)
[2016-08-16] MEDS: RESP: ALBUTEROL 2.5 MG/IPRATROPIUM 0.5 MG NEB (SCH) INH ×4 (03:13→20:49)
[2016-08-16] MEDS: CHLORHEXIDINE GLUCONATE 2 % 1 PACK (2 CLOTHS) TOP SCH (03:30)
[2016-08-16] MEDS: SODIUM CHLOR 0.9% 1000 ML INJ 1,000 ML IV SCH (03:31)
--- NOTE | 2016-08-16 08:58 | HHI.PR ---
Subjective Remarks f/u; PE in no acute distress. denies chest pain or sob. had a low garde fever last night. no other new complaints. Objective Vitals Vital Signs Date Time Temp Pulse Resp B/P Pulse Ox O2 Delivery O2 Flow Rate FiO2 08/16/16 08:16 84 08/16/16 04:00 97.2 92 18 146/68 92 08/16/16 00:00 100.0 93 16 123/58 91 08/15/16 21:45 86 08/15/16 20:00 99.1 96 18 116/60 94 08/15/16 16:00 96.4 94 22 103/72 95 08/15/16 15:18 93 Nasal Cannula 2.00 08/15/16 13:00 93 Nasal Cannula 2.00 08/15/16 12:00 73 08/15/16 12:00 98.1 73 22 140/75 95 08/15/16 10:00 71 I/O 08/15/16 08/15/16 08/15/16 08/16/16 08/16/16 08/16/16 07:00 15:00 23:00 07:00 15:00 23:00 Intake Total 1105 ml 840 ml 250 ml Balance 1105 ml 840 ml 250 ml Intake Oral 450 ml 840 ml IV Total 655 ml 250 ml # Voids 2 2 # Bowel Movements 0 Result Diagram: 08/15/16 0642 08/15/16 0642 Imaging Last Impressions Thoracic Spine MRI 08/13/16 0000 Signed Impressions: Service Date/Time: Saturday, August 13, 2016 08:06 - CONCLUSION: 1. Focal diffuse decreased signal throughout the body of T10 which correlates with diffuse sclerosis of the T10 vertebral body on the recent CT scan. There is no increased signal on T2-weighted images and there is no abnormal enhancement on the postcontrast images. In this patient with a history of breast cancer, this maybe an old metastatic deposit. Therefore, recommend a bone scan for further evaluation. 2. The rest of the examination is grossly unremarkable. Merritt Hayes MD Lumbar Spine MRI 08/13/16 0000 Signed Impressions: Service Date/Time: Saturday, August 13, 2016 08:06 - CONCLUSION: 1. Grade 1 anterior spondylolisthesis of L4 over L5. 2. Moderate spinal canal stenosis L4-5. 3. There is disc dehydration at all levels and there is broad-based bulging at multiple levels. 4. There is primary bony degenerative changes and disc degeneration throughout the lumbar spine. 5. No evidence of bony metastatic disease is seen at this time. Merritt Hayes MD Cervical Spine MRI 08/13/16 0000 Signed Impressions: Service Date/Time: Saturday, August 13, 2016 08:06 - CONCLUSION: 1. Mild primary bony degenerative changes involving the mid to lower cervical spine with disc degeneration and disc space narrowing at C6-7. 2. Mild broad-based bulging at C5-6 and C6-7. 3. No definite bony metastatic disease is seen. Merritt Hayes MD Brain MRI 08/13/16 0000 Signed Impressions: Service Date/Time: Saturday, August 13, 2016 08:06 - CONCLUSION: 1. Unremarkable MRI of the brain for patient's age. 2. Moderate bilateral chronic maxillary sinus disease. 3. No evidence of brain metastatic disease. Merritt Hayes MD CT Angiography [id number]/12/[id number] Signed Impressions: Service Date/Time: Friday, August 12, 2016 19:22 - CONCLUSION: 1. Large central pulmonary emboli bilaterally. Tushar Lake MD Chest X-Ray [id number]/12/[id number] Signed Impressions: Service Date/Time: Friday, August 12, 2016 18:43 - CONCLUSION: 1. No acute findings. Tushar Lake MD Lower Extremity Ultrasound 08/12/16 0000 Signed Impressions: Service Date/Time: Friday, August 12, 2016 22:12 - CONCLUSION: Long segment DVT of the left lower extremity as above. No DVT on the right. Landon Nance MD Objective Remarks GENERAL: This is a well-nourished, well-developed patient, in no apparent distress. CARDIOVASCULAR: Regular rate and regular rhythm without murmurs, gallops, or rubs. RESPIRATORY: bilateral air entry present GASTROINTESTINAL: Abdomen soft, non-tender, nondistended. Normal, active bowel sounds MUSCULOSKELETAL: Extremities without clubbing, cyanosis, or edema. NEURO: Alert & Oriented x4 to person, place, time, situation. Moves all ext x4 Medications and IVs Current Medications IV Flush (NS Flush) 2 ml UNSCH PRN IVF FLUSH AFTER USING IV ACCESS; Start 08/12 at 18:30; Stop 08/12/16 at 21:01; Status DC Aspirin (Aspirin Chew) 162 mg ONCE ONCE CHEW Last administered on 08/12/16 20 :11; Start 08/12/16 at 19:45; Stop 08/12/16 at 19:46; Status DC Heparin Sodium (Porcine) (Heparin Inj) 8,000 units ONCE ONCE IV Last administered on 08/12/16 20:32; Start 08/12/16 at 20:30; Stop 08/12/16 at 20:31 ; Status DC Heparin Sodium (Porcine) (Heparin Inj) 5,000 units UNSCH PRN IV APTT LESS THAN 25; Start 08/13/16 at 02:30; Stop 08/13/16 at 02:30; Status DC Heparin Sodium (Porcine) 2500 units 2,500 units UNSCH PRN IV APTT 25 TO 39; Start 08/13/16 at 02:30; Stop 08/13/16 at 02:30; Status DC Heparin Sodium/ Dextrose (Heparin-D5W Inj) 250 ml @ 0 mls/hr TITRATE IV Last administered on 08/12/16 20:35; Start 08/12/16 at 20:30; Stop 08/13/16 at 01:15 ; Status DC IV Flush (NS Flush) 2 ml BID IVF ; Start 08/12/16 at 21:00; Stop 08/13/16 at 01: 17; Status DC IV Flush (NS Flush) 2 ml UNSCH PRN IVF FLUSH AFTER USING IV ACCESS; Start 08/12 at 21:00; Stop 08/13/16 at 01:17; Status DC Miscellaneous Information Patient in critical care unit? Ass... Q361D XX ; Start 08/12/16 at 23:30; Stop 08/13/16 at 01:16; Status DC Chlorhexidine Gluconate (Chlorhexidine 2% Cloth) 3 pack DAILY@04 TOP ; Start 06/17 at 04:00; Stop 08/13/16 at 04:00; Status DC Chlorhexidine Gluconate (Chlorhexidine 2% Cloth) 3 pack UNSCH PRN TOP HYGIENIC CARE; Start 08/12/16 at 23:30; Stop 08/13/16 at 01:16; Status DC IV Flush (NS Flush) 2 ml UNSCH PRN IV FLUSH FLUSH AFTER USING IV ACCESS; Start 08/13/16 at 00:45 IV Flush (NS Flush) 2 ml BID IV FLUSH Last administered on 08/15/16 20:25; Start 08/13/16 at 09:00 Acetaminophen (Tylenol) 650 mg Q6H PRN PO PAIN 1-10 AND/OR FEVER >101F; Start 08/13/16 at 00:45 Pantoprazole Sodium (Protonix) 40 mg DAILY PO Last administered on 08/15/16 08 :18; Start 08/13/16 at 09:00 Ondansetron HCl (Zofran Inj) 4 mg Q6H PRN IV NAUSEA OR VOMITING; Start at 00:45 Albuterol/ Ipratropium (Duoneb Neb) 1 ampule Q6HR NEB INH Last administered on 08/16/16 03:13; Start 08/13/16 at 04:00 Albuterol Sulfate (Albuterol Neb) 2.5 mg Q2HR NEB PRN INH SOB/WHEEZING; Start 08/13/16 at 00:45 Miscellaneous Information 1 Q361D XX Last administered on 08/13/16 00:45; Start 08/13/16 at 00:45 Chlorhexidine Gluconate (Chlorhexidine 2% Cloth) 3 pack Taper DAILY@04 TOP Last administered on 08/16/16 03:30; Start 08/13/16 at 04:00; Stop 08/09/17 at 03:59 Chlorhexidine Gluconate (Chlorhexidine 2% Cloth) 3 pack UNSCH PRN TOP HYGIENIC CARE; Start 08/13/16 at 00:45 Heparin Sodium (Porcine) (Heparin Inj) 5,000 units UNSCH PRN IV APTT LESS THAN 25; Start 08/13/16 at 07:00; Stop 08/13/16 at 11:48; Status DC Heparin Sodium (Porcine) 2500 units 2,500 units UNSCH PRN IV APTT 25 TO 39; Start 08/13/16 at 07:00; Stop 08/13/16 at 11:48; Status DC Heparin Sodium/ Dextrose (Heparin-D5W Inj) 250 ml @ 0 mls/hr TITRATE IV Last administered on 08/13/16 06:31; Start 08/13/16 at 01:00; Stop 08/13/16 at 11:48 ; Status DC Gadobenate Dimeglumine (Multihance Pf Inj) 20 ml STK-MED ONCE IV Last administered on 08/13/16 09:00; Start 08/13/16 at 09:00; Stop 08/13/16 at 09:01 ; Status DC Amoxicillin/ Clavulanate Potassium (Augmentin) 875 mg BID PO Last administered on 08/15/16 20:24; Start 08/13/16 at 21:00 Fenofibrate (Tricor) 145 mg DAILY PO Last administered on 08/15/16 08:18; Start 08/14/16 at 09:00 Metoprolol Tartrate (Lopressor) 25 mg BID PO Last administered on 08/15/16 20: 24; Start 08/13/16 at 21:00 Multivitamins (Theragran) 1 tab DAILY PO Last administered on 08/15/16 08:18; Start 08/14/16 at 09:00 Pravastatin Sodium 80 mg 80 mg HS PO Last administered on 08/15/16 20:24; Start 08/13/16 at 21:00 Alteplase, Recombinant 100 mg/Sterile Water 100 ml @ 0 mls/hr ONCE ONCE IV Last administered on 08/13/16 12:25; Start 08/13/16 at 12:00; Stop 08/13/16 at 12:01; Status DC Sodium Chloride 1,000 ml @ 84 mls/hr [id number] IV Last administered on 03:31; Start 08/13/16 at 13:00 Heparin Sodium/ Dextrose 250 ml @ 0 mls/hr TITRATE IV Last administered on 08/15 16:21; Start 08/14/16 at 09:00; Stop 08/15/16 at 21:00; Status DC Sodium Phosphate/ Sodium Chloride (Sodium Phosphate Inj/NS Inj) 155 ml @ 38.75 mls/ hr ONCE ONCE IV Last administered on 08/14/16 14:14; Start 08/14/16 at 13:00; Stop 08/14/16 at 16:59; Status DC Guaifenesin (Robitussin Liq) 200 mg Q4H PRN PO COUGH Last administered on 01:51; Start 08/15/16 at 10:30 Apixaban (Eliquis) 10 mg BID PO Last administered on 08/15/16 20:24; Start at 21:00; Stop 08/16/16 at 08:17; Status DC Apixaban (Eliquis) 5 mg BID PO ; Start 08/16/16 at 09:00 A/P Assessment and Plan Pulmonary embolism Continue with oxygen keep sat 92%. IS q 2 hour awake. started on Eliquis hematology following walk test performed and needs home oxygen; case management will be consulted. History of hypertension Hyperlipidemia On Lopressor 25mg BID, Pravachol, TriCor Echo showed EF 60-65%, grade I diastolic dysfunction, RV pressure overload, severe pulm HTN PAP 85mmHg CKD Stage III Received IV contrast 08/12/16. Monitor renal function, I/O's, avoid nephrotoxins, IVF- NS@84ml/hr Stage IV breast cancer Stage I at time of diagnosis in 12/2012 s/p bilateral mastectomy, bilateral breast radiation, chemotherapy with anastrazole. T10 metastasis diagnosed 12/2015, then started on tamoxifen Submassive pulmonary embolism with RV strain= s/p TPA L leg DVT L SFA to popliteal. Monitor CBC, Coags, start Heparin drip per protocol. Heme is following-Dr. Chavez low grade fever-likely due to DVT- will monitor PROPH: Protonix 40 mg by mouth daily for stress ulcer prophylaxis. on Eliquis. Discharge Planning dc home in am if stable. case management for home oxygen. Radha Lerma MD Aug 16, 2016 08:58
[2016-08-16] MEDS ORDERED: OXYGENTANK NAS.CANULA (08:59)
[2016-08-16] MEDS: APIXABAN 5 MG TABLET PO SCH ×2 (09:50→20:00)
[2016-08-16] MEDS: FENOFIBRATE 145 MG TAB PO SCH (09:50)
[2016-08-16] MEDS: METOPROLOL TARTRATE 25 MG TAB PO SCH ×2 (09:50→20:00)
[2016-08-16] MEDS: MULTIVITAMIN TAB PO SCH (09:51)
[2016-08-16] MEDS: AMOXICILLIN/CLAVULANATE K 875 MG TAB PO SCH ×2 (09:51→20:00)
[2016-08-16] MEDS: PANTOPRAZOLE SOD 40 MG DELAYED RELEASE TAB PO SCH (09:51)
[2016-08-16] MEDS: SODIUM CHLORIDE 0.9% FLUSH 5 ML FLUSH IV FLUSH SCH ×2 (09:54→20:02)
--- NOTE | 2016-08-16 15:20 | PD.ONC.PN ---
Subjective Subjective Remarks Tmax 100.0 overnight. Pt sitting up in bed in no distress. He states he is still having some SOB. He is asking when he might go home. He has no pain except to the hematoma to his L thigh. Objective Data Date Time Temp Pulse Resp B/P Pulse Ox O2 Delivery O2 Flow Rate FiO2 08/16/16 09:38 92 Nasal Cannula 2.00 08/16/16 08:16 84 08/16/16 07:50 97.5 86 20 162/71 93 08/16/16 04:00 97.2 92 18 146/68 92 08/16/16 00:00 100.0 93 16 123/58 91 08/15/16 21:45 86 08/15/16 20:00 99.1 96 18 116/60 94 08/15/16 16:00 96.4 94 22 103/72 95 08/15/16 15:18 93 Nasal Cannula 2.00 08/16/16 08/16/16 08/16/16 07:00 15:00 23:00 Intake Total 250 ml Balance 250 ml Result Diagram: 08/15/16 0642 08/15/16 0642 Administered Medications Medications (Trade) Dose Ordered Sig/Melanie Route PRN Reason Start Time Stop Time Status Last Admin Dose Admin IV Flush (NS Flush) 2 ml BID IV FLUSH 08/13/16 09:00 08/15/16 20:25 Pantoprazole Sodium (Protonix) 40 mg DAILY PO 08/13/16 09:00 08/16/16 09:51 Miscellaneous Information 1 Q361D XX 08/13/16 00:45 08/13/16 00:45 Chlorhexidine Gluconate (Chlorhexidine 2% Cloth) 3 pack Taper DAILY@04 TOP 08/13/16 04:00 08/09/17 03:59 08/16/16 03:30 Amoxicillin/ Clavulanate Potassium (Augmentin) 875 mg BID PO 08/13/16 21:00 08/16/16 09:51 Fenofibrate (Tricor) 145 mg DAILY PO 08/14/16 09:00 08/16/16 09:50 Metoprolol Tartrate (Lopressor) 25 mg BID PO 08/13/16 21:00 08/16/16 09:50 Multivitamins (Theragran) 1 tab DAILY PO 08/14/16 09:00 08/16/16 09:51 Pravastatin Sodium 80 mg 80 mg HS PO 08/13/16 21:00 08/15/16 20:24 Sodium Chloride (NS 1000 ml Inj) 1,000 ml @ 84 mls/hr [id number] IV 08/13/16 13:00 08/16/16 03:31 Guaifenesin (Robitussin Liq) 200 mg Q4H PRN PO COUGH 08/15/16 10:30 08/16/16 09:50 Apixaban (Eliquis) 5 mg BID PO 08/16/16 09:00 08/16/16 09:50 Objective Remarks GENERAL: Pleasant male, sitting up in bed in no distress. SKIN: Warm and dry. Lg. hematoma to L thigh, L scapula area. HEAD: Normocephalic. EYES: No injection or drainage. NECK: Supple, trachea midline. CARDIOVASCULAR: Regular rate and rhythm RESPIRATORY: diminished at bases. anterior feng clear. GASTROINTESTINAL: Abdomen soft, non-tender, nondistended. EXTREMITIES: No cyanosis, or edema. MUSCULOSKELETAL: Adequate muscle tone. NEUROLOGICAL: No obvious focal deficit. Awake, alert, and oriented x3. Assessment/Plan Problem List: (1) Pulmonary embolism Status: Acute Plan: 08/16/16: Continue Eliquis. Will monitor CBC. 08/15: start Eliquis this evening if covered by insurance. will ask case management to assist in finding out. 08/14/16: continue heparin drip. monitor CBC --s/p tpA --on heparin drip (2) Metastatic breast cancer Status: Chronic Plan: History: December,: bilateral mastectomy for bilateral breast cancers. Each breast cancer was a pathologic T1c N0 M0 breast cancer. Both breast cancers were ER/SC- positive and HER-2/Edward negative. The patient was treated with Arimidex by Dr. Chandra Ford. November,:CT showed solitary uptake at T10. MRI thoracic spine showed a metastatic lesion to T10. biopsy showed metastatic breast cancer, ER positive, SC positive. started on tamoxifen. most recent radiographic studies showed resolution of the single metastatic lesion. --MRI brain showed no mets Assessment 75y/o male with large pulmonary emboli in a patient with metastatic breast cancer. echo showed severe right ventricular strain with severe pulmonary hypertension Attending Statement c/o SOB and bruise left flank area from the fall. Creatinin is high. Change Eliquis to 5 mg BID. Does not want to take coumadin. Reassure about flank Bruise . It is not progressing. Problem Qualifiers (1) Pulmonary embolism: Mihaela Quintero Aug 16, 2016 15:20 Woodrow De La Torre MD Aug 16, 2016 15:29
[2016-08-16] MEDS: PRAVASTATIN SOD 80 MG TAB PO SCH (20:00)
[2016-08-17] VITALS (7 sets, daily range): BP systolic 127–162; BP diastolic 61–86; PULSE 73–82; RESP 16–20; TEMP 97–98.7; O2SAT 93–96
[2016-08-17] MEDS: SODIUM CHLOR 0.9% 1000 ML INJ 1,000 ML IV SCH (00:25)
[2016-08-17] MEDS: CHLORHEXIDINE GLUCONATE 2 % 1 PACK (2 CLOTHS) TOP SCH (03:40)
[2016-08-17] MEDS: MULTIVITAMIN TAB PO SCH (08:52)
[2016-08-17] MEDS: SODIUM CHLORIDE 0.9% FLUSH 5 ML FLUSH IV FLUSH SCH (08:52)
[2016-08-17] MEDS: APIXABAN 5 MG TABLET PO SCH (08:52)
[2016-08-17] MEDS: METOPROLOL TARTRATE 25 MG TAB PO SCH (08:52)
[2016-08-17] MEDS: PANTOPRAZOLE SOD 40 MG DELAYED RELEASE TAB PO SCH (08:52)
[2016-08-17] MEDS: AMOXICILLIN/CLAVULANATE K 875 MG TAB PO SCH (08:52)
[2016-08-17] MEDS: FENOFIBRATE 145 MG TAB PO SCH (08:53)
--- NOTE | 2016-08-17 09:28 | PD.ONC.PN ---
Subjective Subjective Remarks Afebrile overnight. Pt sitting up in bed with at bedside. He states he feels like he is breathing easier today. He tells me he is going home on oxygen. No bleeding. Objective Data Date Time Temp Pulse Resp B/P Pulse Ox O2 Delivery O2 Flow Rate FiO2 08/17/16 08:22 96 Nasal Cannula 2.00 08/17/16 07:50 98.7 77 20 162/74 96 08/17/16 04:22 95 Nasal Cannula 2.00 08/17/16 04:00 97.0 75 16 127/86 93 08/17/16 00:05 98.6 82 16 134/61 93 08/16/16 21:15 85 08/16/16 20:00 99.0 80 16 145/64 94 08/16/16 15:50 99.0 80 20 135/65 94 08/16/16 15:19 95 Nasal Cannula 2.00 08/16/16 11:50 99.0 80 20 166/71 97 08/16/16 09:38 92 Nasal Cannula 2.00 08/17/16 08/17/16 08/17/16 07:00 15:00 23:00 Intake Total 1200 ml Balance 1200 ml Result Diagram: 08/15/1642 08/15/16 0642 Administered Medications Medications (Trade) Dose Ordered Sig/Melanie Route PRN Reason Start Time Stop Time Status Last Admin Dose Admin IV Flush (NS Flush) 2 ml BID IV FLUSH 08/13/16 09:00 08/15/16 20:25 Pantoprazole Sodium (Protonix) 40 mg DAILY PO 08/13/16 09:00 08/17/16 08:52 Miscellaneous Information 1 Q361D XX 08/13/16 00:45 08/13/16 00:45 Chlorhexidine Gluconate (Chlorhexidine 2% Cloth) 3 pack Taper DAILY@04 TOP 08/13/16 04:00 08/09/17 03:59 08/17/16 03:40 Amoxicillin/ Clavulanate Potassium (Augmentin) 875 mg BID PO 08/13/16 21:00 08/17/16 08:52 Fenofibrate (Tricor) 145 mg DAILY PO 08/14/16 09:00 08/17/16 08:53 Metoprolol Tartrate (Lopressor) 25 mg BID PO 08/13/16 21:00 08/17/16 08:52 Multivitamins (Theragran) 1 tab DAILY PO 08/14/16 09:00 08/17/16 08:52 Pravastatin Sodium 80 mg 80 mg HS PO 08/13/16 21:00 08/16/16 20:00 Sodium Chloride (NS 1000 ml Inj) 1,000 ml @ 84 mls/hr [id number] IV 08/13/16 13:00 08/17/16 00:25 Guaifenesin (Robitussin Liq) 200 mg Q4H PRN PO COUGH 08/15/16 10:30 08/16/16 09:50 Apixaban (Eliquis) 5 mg BID PO 08/16/16 09:00 08/17/16 08:52 Objective Remarks GENERAL: Pleasant male, sitting up in bed in no distress. SKIN: Warm and dry. Lg. hematoma to L thigh, L mid back and scapula area. HEAD: Normocephalic. EYES: No injection or drainage. NECK: Supple, trachea midline. CARDIOVASCULAR: +S1/S2. No murmur noted. RESPIRATORY: Lungs clear posteriorly. Mildly diminished at bases. Breathing unlabored. On 2LNC. GASTROINTESTINAL: Abdomen soft, non-tender, nondistended. EXTREMITIES: No cyanosis, or edema. NEUROLOGICAL: No obvious focal deficit. Awake, alert, and oriented x3. Assessment/Plan Problem List: (1) Pulmonary embolism Status: Acute Plan: 08/17/16: Tolerating Eliquis. No obvious bleeding. Hematomas to L flank & thigh stable. Daily CBC while inpatient. 08/16/16: Continue Eliquis. Will monitor CBC. 08/15: start Eliquis this evening if covered by insurance. will ask case management to assist in finding out. 08/14/16: continue heparin drip. monitor CBC --s/p tpA --on heparin drip (2) Metastatic breast cancer Status: Chronic Plan: History: December,: bilateral mastectomy for bilateral breast cancers. Each breast cancer was a pathologic T1c N0 M0 breast cancer. Both breast cancers were ER/MS- positive and HER-2/Edward negative. The patient was treated with Arimidex by Dr. Chandra Ford. November,:CT showed solitary uptake at T10. MRI thoracic spine showed a metastatic lesion to T10. biopsy showed metastatic breast cancer, ER positive, MS positive. started on tamoxifen. most recent radiographic studies showed resolution of the single metastatic lesion. --MRI brain showed no mets Assessment 75y/o male with large pulmonary emboli in a patient with metastatic breast cancer. echo showed severe right ventricular strain with severe pulmonary hypertension Problem Qualifiers (1) Pulmonary embolism: Mihaela Quintero Aug 17, 2016 09:28
[2016-08-17 09:54] LABS: BICARBONATE 23.2 MEQ/L (21.0-32.0); POTASSIUM 3.7 MEQ/L (3.5-5.1)
--- NOTE | 2016-08-17 11:01 | HHI.PR ---
Subjective Remarks resting comfortably in no acute distress. on oxygen via N/C. no new complaints. Objective Vitals Vital Signs Date Time Temp Pulse Resp B/P Pulse Ox O2 Delivery O2 Flow Rate FiO2 08/17/16 08:22 96 Nasal Cannula 2.00 08/17/16 07:50 98.7 77 20 162/74 96 08/17/16 07:28 73 08/17/16 04:22 95 Nasal Cannula 2.00 08/17/16 04:00 97.0 75 16 127/86 93 08/17/16 00:05 98.6 82 16 134/61 93 08/16/16 21:15 85 08/16/16 20:00 99.0 80 16 145/64 94 08/16/16 15:50 99.0 80 20 135/65 94 08/16/16 15:19 95 Nasal Cannula 2.00 08/16/16 11:50 99.0 80 20 166/71 97 I/O 08/16/16 08/16/16 08/16/16 08/17/16 08/17/16 08/17/16 07:00 15:00 23:00 07:00 15:00 23:00 Intake Total 250 ml 480 ml 250 ml 1200 ml Balance 250 ml 480 ml 250 ml 1200 ml Intake Oral 480 ml 250 ml 350 ml IV Total 250 ml 850 ml # Voids 2 1 1 # Bowel Movements 0 1 0 Result Diagram: 08/15/16 0642 08/17/16 0820 Imaging Last Impressions Thoracic Spine MRI 08/13/16 0000 Signed Impressions: Service Date/Time: Saturday, August 13, 2016 08:06 - CONCLUSION: 1. Focal diffuse decreased signal throughout the body of T10 which correlates with diffuse sclerosis of the T10 vertebral body on the recent CT scan. There is no increased signal on T2-weighted images and there is no abnormal enhancement on the postcontrast images. In this patient with a history of breast cancer, this maybe an old metastatic deposit. Therefore, recommend a bone scan for further evaluation. 2. The rest of the examination is grossly unremarkable. Merritt Hayes MD Lumbar Spine MRI 08/13/16 0000 Signed Impressions: Service Date/Time: Saturday, August 13, 2016 08:06 - CONCLUSION: 1. Grade 1 anterior spondylolisthesis of L4 over L5. 2. Moderate spinal canal stenosis L4-5. 3. There is disc dehydration at all levels and there is broad-based bulging at multiple levels. 4. There is primary bony degenerative changes and disc degeneration throughout the lumbar spine. 5. No evidence of bony metastatic disease is seen at this time. Merritt Hayes MD Cervical Spine MRI 08/13/16 0000 Signed Impressions: Service Date/Time: Saturday, August 13, 2016 08:06 - CONCLUSION: 1. Mild primary bony degenerative changes involving the mid to lower cervical spine with disc degeneration and disc space narrowing at C6-7. 2. Mild broad-based bulging at C5-6 and C6-7. 3. No definite bony metastatic disease is seen. Merritt Hayes MD Brain MRI 08/13/16 0000 Signed Impressions: Service Date/Time: Saturday, August 13, 2016 08:06 - CONCLUSION: 1. Unremarkable MRI of the brain for patient's age. 2. Moderate bilateral chronic maxillary sinus disease. 3. No evidence of brain metastatic disease. Merritt Hayes MD CT Angiography 08/12/16 190 Signed Impressions: Service Date/Time: Friday, August 12, 2016 19:22 - CONCLUSION: 1. Large central pulmonary emboli bilaterally. Tushar Lake MD Chest X-Ray 08/12/161816 Signed Impressions: Service Date/Time: Friday, August 12, 2016 18:43 - CONCLUSION: 1. No acute findings. Tushar Lake MD Lower Extremity Ultrasound 08/12/16 0000 Signed Impressions: Service Date/Time: Friday, August 12, 2016 22:12 - CONCLUSION: Long segment DVT of the left lower extremity as above. No DVT on the right. Landon Nance MD Objective Remarks GENERAL: This is a well-nourished, well-developed patient, in no apparent distress. CARDIOVASCULAR: Regular rate and regular rhythm without murmurs, gallops, or rubs. RESPIRATORY: bilateral air entry present GASTROINTESTINAL: Abdomen soft, non-tender, nondistended. Normal, active bowel sounds MUSCULOSKELETAL: Extremities without clubbing, cyanosis, or edema. NEURO: Alert & Oriented x4 to person, place, time, situation. Moves all ext x4 Procedures none Medications and IVs Current Medications IV Flush (NS Flush) 2 ml UNSCH PRN IVF FLUSH AFTER USING IV ACCESS; Start 08/12 at 18:30; Stop 08/12/16 at 21:01; Status DC Aspirin (Aspirin Chew) 162 mg ONCE ONCE CHEW Last administered on 08/12/16 20 :11; Start 08/12/16 at 19:45; Stop 08/12/16 at 19:46; Status DC Heparin Sodium (Porcine) (Heparin Inj) 8,000 units ONCE ONCE IV Last administered on 08/12/16 20:32; Start 08/12/16 at 20:30; Stop 08/12/16 at 20:31 ; Status DC Heparin Sodium (Porcine) (Heparin Inj) 5,000 units UNSCH PRN IV APTT LESS THAN 25; Start 08/13/16 at 02:30; Stop 08/13/16 at 02:30; Status DC Heparin Sodium (Porcine) 2500 units 2,500 units UNSCH PRN IV APTT 25 TO 39; Start 08/13/16 at 02:30; Stop 08/13/16 at 02:30; Status DC Heparin Sodium/ Dextrose (Heparin-D5W Inj) 250 ml @ 0 mls/hr TITRATE IV Last administered on 08/12/16 20:35; Start 08/12/16 at 20:30; Stop 08/13/16 at 01:15 ; Status DC IV Flush (NS Flush) 2 ml BID IVF ; Start 08/12/16 at 21:00; Stop 08/13/16 at 01: 17; Status DC IV Flush (NS Flush) 2 ml UNSCH PRN IVF FLUSH AFTER USING IV ACCESS; Start 08/12 at 21:00; Stop 08/13/16 at 01:17; Status DC Miscellaneous Information Patient in critical care unit? Ass... Q361D XX ; Start 08/12/16 at 23:30; Stop 08/13/16 at 01:16; Status DC Chlorhexidine Gluconate (Chlorhexidine 2% Cloth) 3 pack DAILY@04 TOP ; Start 06/17 at 04:00; Stop 08/13/16 at 04:00; Status DC Chlorhexidine Gluconate (Chlorhexidine 2% Cloth) 3 pack UNSCH PRN TOP HYGIENIC CARE; Start 08/12/16 at 23:30; Stop 08/13/16 at 01:16; Status DC IV Flush (NS Flush) 2 ml UNSCH PRN IV FLUSH FLUSH AFTER USING IV ACCESS; Start 08/13/16 at 00:45 IV Flush (NS Flush) 2 ml BID IV FLUSH Last administered on 08/15/16 20:25; Start 08/13/16 at 09:00 Acetaminophen (Tylenol) 650 mg Q6H PRN PO PAIN 1-10 AND/OR FEVER >101F; Start 08/13/16 at 00:45 Pantoprazole Sodium (Protonix) 40 mg DAILY PO Last administered on 08/17/16 08 :52; Start 08/13/16 at 09:00 Ondansetron HCl (Zofran Inj) 4 mg Q6H PRN IV NAUSEA OR VOMITING; Start at 00:45 Albuterol/ Ipratropium (Duoneb Neb) 1 ampule Q6HR NEB INH Last administered on 08/16/16 20:49; Start 08/13/16 at 04:00; Stop 08/17/16 at 04:00; Status DC Albuterol Sulfate (Albuterol Neb) 2.5 mg Q2HR NEB PRN INH SOB/WHEEZING Last administered on 08/17/16 04:19; Start 08/13/16 at 00:45 Miscellaneous Information 1 Q361D XX Last administered on 08/13/16 00:45; Start 08/13/16 at 00:45 Chlorhexidine Gluconate (Chlorhexidine 2% Cloth) 3 pack Taper DAILY@04 TOP Last administered on 08/17/16 03:40; Start 08/13/16 at 04:00; Stop 08/09/17 at 03:59 Chlorhexidine Gluconate (Chlorhexidine 2% Cloth) 3 pack UNSCH PRN TOP HYGIENIC CARE; Start 08/13/16 at 00:45 Heparin Sodium (Porcine) (Heparin Inj) 5,000 units UNSCH PRN IV APTT LESS THAN 25; Start 08/13/16 at 07:00; Stop 08/13/16 at 11:48; Status DC Heparin Sodium (Porcine) 2500 units 2,500 units UNSCH PRN IV APTT 25 TO 39; Start 08/13/16 at 07:00; Stop 08/13/16 at 11:48; Status DC Heparin Sodium/ Dextrose (Heparin-D5W Inj) 250 ml @ 0 mls/hr TITRATE IV Last administered on 08/13/16 06:31; Start 08/13/16 at 01:00; Stop 08/13/16 at 11:48 ; Status DC Gadobenate Dimeglumine (Multihance Pf Inj) 20 ml STK-MED ONCE IV Last administered on 08/13/16 09:00; Start 08/13/16 at 09:00; Stop 08/13/16 at 09:01 ; Status DC Amoxicillin/ Clavulanate Potassium (Augmentin) 875 mg BID PO Last administered on 08/17/16 08:52; Start 08/13/16 at 21:00 Fenofibrate (Tricor) 145 mg DAILY PO Last administered on 08/17/16 08:53; Start 08/14/16 at 09:00 Metoprolol Tartrate (Lopressor) 25 mg BID PO Last administered on 08/17/16 08: 52; Start 08/13/16 at 21:00 Multivitamins (Theragran) 1 tab DAILY PO Last administered on 08/17/16 08:52; Start 08/14/16 at 09:00 Pravastatin Sodium 80 mg 80 mg HS PO Last administered on 08/16/16 20:00; Start 08/13/16 at 21:00 Alteplase, Recombinant 100 mg/Sterile Water 100 ml @ 0 mls/hr ONCE ONCE IV Last administered on 08/13/16 12:25; Start 08/13/16 at 12:00; Stop 08/13/16 at 12:01; Status DC Sodium Chloride 1,000 ml @ 84 mls/hr [id number] IV Last administered on 00:25; Start 08/13/16 at 13:00 Heparin Sodium/ Dextrose 250 ml @ 0 mls/hr TITRATE IV Last administered on 08/15 16:21; Start 08/14/16 at 09:00; Stop 08/15/16 at 21:00; Status DC Sodium Phosphate/ Sodium Chloride (Sodium Phosphate Inj/NS Inj) 155 ml @ 38.75 mls/ hr ONCE ONCE IV Last administered on 08/14/16 14:14; Start 08/14/16 at 13:00; Stop 2/13/17 at 16:59; Status DC Guaifenesin (Robitussin Liq) 200 mg Q4H PRN PO COUGH Last administered on 09:50; Start 08/15/16 at 10:30 Apixaban (Eliquis) 10 mg BID PO Last administered on 08/15/16 20:24; Start at 21:00; Stop 08/16/16 at 08:17; Status DC Apixaban (Eliquis) 5 mg BID PO Last administered on 08/17/16 08:52; Start at 09:00 A/P Assessment and Plan Pulmonary embolism Continue with oxygen keep sat 92%. IS q 2 hour awake. started on Eliquis hematology following walk test performed and needs home oxygen; case management consulted. History of hypertension Hyperlipidemia On Lopressor 25mg BID, Pravachol, TriCor Echo showed EF 60-65%, grade I diastolic dysfunction, RV pressure overload, severe pulm HTN PAP 85mmHg CKD Stage III Received IV contrast 08/12/16. Monitor renal function, I/O's, avoid nephrotoxins, IVF- NS@84ml/hr Stage IV breast cancer Stage I at time of diagnosis in 12/2012 s/p bilateral mastectomy, bilateral breast radiation, chemotherapy with anastrazole. T10 metastasis diagnosed 12/2015, then started on tamoxifen Submassive pulmonary embolism with RV strain= s/p TPA L leg DVT L SFA to popliteal. Monitor CBC, Coags, start Heparin drip per protocol. Heme is following-Dr. Chavez low grade fever-likely due to DVT- resolved. PROPH: Protonix 40 mg by mouth daily for stress ulcer prophylaxis. on Eliquis. Discharge Planning dc home today if ok with hematology. see med list. f/u; pcp and hematology. needs home oxygen. time spent 35 min. Radha Lerma MD Aug 17, 2016 11:00
--- NOTE | 2016-08-17 11:02 | HHI.DCPOC ---
Discharge Care Plan Diagnosis: (1) Pulmonary embolism Your Health Problems Are: Shortness of Breath Goals to Promote Your Health * To prevent worsening of your condition and complications * To maintain your health at the optimal level Directions to Meet Your Goals Take your medications as prescribed Follow your dietary instruction Follow activity as directed Keep your appointments as scheduled Take your immunizations and boosters as scheduled If your symptoms worsen call your PCP, if no PCP go to Urgent Care Center or Emergency Room Smoking is Dangerous to Your Health. Avoid second hand smoke Call the 24-hour hour crisis hotline for domestic abuse at Radha Lerma MD Aug 17, 2016 11:02
--- NOTE | 2016-08-17 11:03 | HHI.DS ---
Discharge Summary Admission Date Aug 12, 2016 at 20:59 Discharge Date: Aug 17, 2016 Admitting Diagnosis Acute bilateral pulmonary emboli; h/o breast cancer (1) Pulmonary embolism ICD Code: I26.99 Diagnosis: Principal Procedures none Brief History - From Admission 75 yo WM with PMH of HTN, hyperlipidemia, CKD stage III, and breast cancer with T10 vertebral body metastasis. He presented to [facility] Emergency department with 3-4 week history of shortness of breath and was found to have bilateral central pulmonary emboli. He states he has been having a cough, at times productive of phlegm, for about 4 weeks. He has had some dizziness and pre-syncope with cough. Denies chest pain or hemoptysis. Denies leg pain or swelling. Denies travel or prior history of VTE. He was originally diagnosed with URI and took a course of antibiotics without relief. He was again started on augmentin 08/08/16 per PMD. He had fever up to 101.9 this week. Today Tmax was 99.9. Today he had worsening shortness of breath and fell in the shower after a possible syncopal event. He denies head trauma. His states his BP was 82/50 at 1:30 this afternoon. He has strong family history of breast cancer including multiple male family members with history of breast cancer. In November 2012 he noted irregularity of his right nipple and had an mammogram which reveals bilateral breast masses. 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 BRCA positive. He underwent bilateral mastectomy and was started on anastrazole in march of 2013. He states he also underwent radiation therapy. He was continued on anastrazole until tumor marker became elevated in October 2015. PET scan 12/22/15 showed a solitary uptake of T10 vertebra. MRI T spine was consistent with metastasis. Biopsy of the T10 lesion was c/w breast cancer, ER positive, LA negative. He was started on Tamoxifen in December of 2015. He was followed by Dr. Ford but has been under the care of Dr. De La Torre since the former practice closed. He had PET scan 08/03/16 and report shows previously hypermetabolic T10 lesion now with photopenic defect suggesting interval treatment. CBC/BMP: 08/15/16 0642 08/17/16 0820 Significant Findings Laboratory Tests Test 08/14/16 08/14/16 08/15/16 08/15/16 15:30 20:00 06:42 14:12 Activated Partial 46.8 SEC 63.2 SEC 84.6 SEC 58.0 SEC Thromboplast Time (24.3-30.1) (24.3-30.1) (24.3-30.1) (24.3-30.1) Red Blood Count 3.76 MIL/MM3 (4.50-5.90) Hemoglobin 10.3 GM/DL (13.0-17.0) Hematocrit 31.3 % (39.0-51.0) Eosinophils (%) (Auto) 14.8 % (0.0-4.0) Eosinophils # (Auto) 1.3 TH/MM3 (0-0.4) Chloride Level 109 MEQ/L (98-107) Creatinine 1.39 MG/DL (0.60-1.30) Estimat Glomerular Filtration 50 ML/MIN (>89) Rate Calcium Level 7.5 MG/DL (8.5-10.1) Alkaline Phosphatase 21 U/L (45-117) Total Protein 5.6 GM/DL (6.4-8.2) Albumin 2.6 GM/DL (3.4-5.0) Test 08/17/16 08:20 Chloride Level 108 MEQ/L (98-107) Creatinine 1.31 MG/DL (0.60-1.30) Estimat Glomerular Filtration 53 ML/MIN (>89) Rate Calcium Level 8.0 MG/DL (8.5-10.1) Imaging Last Impressions Thoracic Spine MRI 08/13/16 0000 Signed Impressions: Service Date/Time: Saturday, August 13, 2016 08:06 - CONCLUSION: 1. Focal diffuse decreased signal throughout the body of T10 which correlates with diffuse sclerosis of the T10 vertebral body on the recent CT scan. There is no increased signal on T2-weighted images and there is no abnormal enhancement on the postcontrast images. In this patient with a history of breast cancer, this maybe an old metastatic deposit. Therefore, recommend a bone scan for further evaluation. 2. The rest of the examination is grossly unremarkable. Merritt Hayes MD Lumbar Spine MRI 08/13/16 Signed Impressions: Service Date/Time: Saturday, August 13, 2016 08:06 - CONCLUSION: 1. Grade 1 anterior spondylolisthesis of L4 over L5. 2. Moderate spinal canal stenosis L4-5. 3. There is disc dehydration at all levels and there is broad-based bulging at multiple levels. 4. There is primary bony degenerative changes and disc degeneration throughout the lumbar spine. 5. No evidence of bony metastatic disease is seen at this time. Merritt Hayes MD Cervical Spine MRI 08/13/16 Signed Impressions: Service Date/Time: Saturday, August 13, 2016 08:06 - CONCLUSION: 1. Mild primary bony degenerative changes involving the mid to lower cervical spine with disc degeneration and disc space narrowing at C6-7. 2. Mild broad-based bulging at C5-6 and C6-7. 3. No definite bony metastatic disease is seen. Merritt Hayes MD Brain MRI 08/13/16 Signed Impressions: Service Date/Time: Saturday, August 13, 2016 08:06 - CONCLUSION: 1. Unremarkable MRI of the brain for patient's age. 2. Moderate bilateral chronic maxillary sinus disease. 3. No evidence of brain metastatic disease. Merritt Hayes MD CT Angiography 08/12/161903 Signed Impressions: Service Date/Time: Friday, August 12, 2016 19:22 - CONCLUSION: 1. Large central pulmonary emboli bilaterally. Tushar Lake MD Chest X-Ray 08/12/161816 Signed Impressions: Service Date/Time: Friday, August 12, 2016 18:43 - CONCLUSION: 1. No acute findings. Tushar Lake MD Lower Extremity Ultrasound 08/12/16 Signed Impressions: Service Date/Time: Friday, August 12, 2016 22:12 - CONCLUSION: Long segment DVT of the left lower extremity as above. No DVT on the right. Landon Nance MD PE at Discharge GENERAL: This is a well-nourished, well-developed patient, in no apparent distress. CARDIOVASCULAR: Regular rate and regular rhythm without murmurs, gallops, or rubs. RESPIRATORY: bilateral air entry present GASTROINTESTINAL: Abdomen soft, non-tender, nondistended. Normal, active bowel sounds MUSCULOSKELETAL: Extremities without clubbing, cyanosis, or edema. NEURO: Alert & Oriented x4 to person, place, time, situation. Moves all ext x4 Hospital Course Pulmonary embolism Continue with oxygen keep sat 92%. IS q 2 hour awake. started on Eliquis hematology following walk test performed and needs home oxygen; case management consulted. History of hypertension Hyperlipidemia On Lopressor 25mg BID, Pravachol, TriCor Echo showed EF 60-65%, grade I diastolic dysfunction, RV pressure overload, severe pulm HTN PAP 85mmHg CKD Stage III Received IV contrast 08/12/16. Monitor renal function, I/O's, avoid nephrotoxins, IVF- NS@84ml/hr Stage IV breast cancer Stage I at time of diagnosis in 12/2012 s/p bilateral mastectomy, bilateral breast radiation, chemotherapy with anastrazole. T10 metastasis diagnosed 12/2015, then started on tamoxifen Submassive pulmonary embolism with RV strain= s/p TPA L leg DVT L SFA to popliteal. Monitor CBC, Coags, start Heparin drip per protocol. Heme is following-Dr. Chavez low grade fever-likely due to DVT- resolved. PROPH: Protonix 40 mg by mouth daily for stress ulcer prophylaxis. on Eliquis. Pt Condition on Discharge: Fair Discharge Disposition: Disch w/ Home Health Serv Discharge Time: > 30 minutes Discharge Instructions DIET: Follow Instructions for: Heart Healthy Diet Activities you can perform: Regular-No Restrictions Follow up Referrals: Oncology PCP Follow-up New Medications: Albuterol 18 GM Inh (Ventolin Hfa 18 GM Inh) 90 Mcg/Act Aer 1 PUFF INH Q4H PRN SHORTNESS OF BREATH #1 Ref 0 INHALER Apixaban (Eliquis) 5 Mg Tab 5 MG PO BID Blood Clot Prevention #60 Ref 0 TAB Oxygen tank (Oxygen tank) 1 Ea Tank 2 LITER TANVIR.CANULA CONTINUOUS Oxygen Concentrator Portable Gaseous 2 L/min via Nasal Cannula Continuous For 99 months HYPOXEMIA PREVENTION #2 CYLINDER Continued Medications: Creyaotvz-Kaqqinhrkhc-Bdpzkjl (Osteo Bi-Flex One A Day) 1 Tab 1 TAB PO DAILY TAB Calcium Carbonate-Cholecalciferol (Calcium 500 +D) 500-400 Mg-Unit Tab 1 TAB PO TID Calcium Supplement Ref 0 TAB Cyanocobalamin (B12) 1,000 Mcg Tab 1000 MCG PO DAILY Fenofibrate (Fenofibrate) 160 Mg Tab 160 MG PO DAILY #30 Ref 0 TAB Metoprolol Tartrate (Metoprolol Tartrate) 25 Mg Tab 25 MG PO BID #60 Ref 0 TAB Multiple Vitamin (Multi Vitamin) 1 Tab Tab 1 TAB PO DAILY TAB Simvastatin (Simvastatin) 40 Mg Tab 40 MG PO HS Cholesterol Management #30 Ref 0 TAB Tamoxifen (Tamoxifen) 20 Mg Tab 20 MG PO DAILY Chemotherapy Management #60 Ref 0 TAB Discontinued Medications: Amoxicillin-Clavulanate (Amoxicillin-Clavulanate) 875-125 mg Tab 875 MG PO BID not for use in CrCl <30 mL/minute Infection Ref 0 TAB Aspirin (Aspirin Low Dose) 81 Mg Chew 81 MG CHEW DAILY Ref 0 TAB Losartan (Losartan) 100 Mg Tab 100 MG PO DAILY Blood Pressure Management #30 Ref 0 TAB Radha Lerma MD Aug 17, 2016 11:02
--- NOTE | 2016-08-17 11:12 | HHI.FF ---
Face to Face Verification Diagnosis: (1) Pulmonary embolism Physical Therapy Order: Evaluate and Treat Home Health Nursing Order: Medical education Signs/symptoms of disease process Oxygen administration education Medication education-adverse effect Nursing assessment with vital signs I have seen patient Jordan Ayers on 08/17/16. My clinical findings support the need for the requested home health care services because: Patient has SOB I certify that my clinical findings support that this patient is homebound because: Unsteady gait/balance Radha Lerma MD Aug 17, 2016 11:12
[2016-08-17] MEDS ORDERED: VENTAER INH (11:14)
== END 2016-08-17 14:44 | disposition home health service (06) | DRG 176 ==
LOC: PHED 18:00 → PHEDA 20:59 → HIMN 23:05 → HOCB 08-15 12:22
PROVIDERS: ADMIT Internal Medicine; ATTEND Internal Medicine
DX: I26.99 Other pulmonary embolism without acute cor pulmonale (principal); C79.51 Secondary malignant neoplasm of bone; N18.3 Chronic kidney disease, stage 3 (moderate); I27.2 Other secondary pulmonary hypertension; I82.492 Acute embolism and thrombosis of other specified deep vein of left lower extremity; E78.5 Hyperlipidemia, unspecified; I12.9 Hypertensive chronic kidney disease with stage 1 through stage 4 chronic kidney disease, or unspecified chronic kidney disease; R09.02 Hypoxemia; M19.90 Unspecified osteoarthritis, unspecified site; R73.9 Hyperglycemia, unspecified; E78.00 Pure hypercholesterolemia, unspecified; Z17.0 Estrogen receptor positive status [ER+]; Z79.810 Long term (current) use of selective estrogen receptor modulators (SERMs); Z80.3 Family history of malignant neoplasm of breast; Z85.3 Personal history of malignant neoplasm of breast; Z87.891 Personal history of nicotine dependence; Z90.13 Acquired absence of bilateral breasts and nipples; Z92.3 Personal history of irradiation
CPT/HCPCS: 70553; 71010; 71275; 72156; 72157; 72158; 80048; 80053; 82550; 83735; 83880; 84100; 84484; 85025; 85027; 85610; 85730; 87040; 87641; 93005; 93306; 93970; 94150; 94620; 94640; 94664; 96365; 96376; 99212; 99214; A9577; G0463; J1644; J2997; J7030; J7613

== ENCOUNTER 2018-06-26 13:19 | Inpatient (IN) ==
[2018-06-26] MEDS ORDERED: MethylPREDNISolone Sod Succinate Inj 125 MG/2 ML Vial IV.PUSH ONE (13:47)
--- NOTE | 2018-06-26 13:53 | ED ---
HPI General Chief Complaint: Respiratory Symptoms Stated Complaint: cough/fever x 1 day Time Seen by Provider: 06/26/18 13:36 Source: patient Mode of arrival: ambulatory Limitations: no limitations History of Present Illness The patient is a 77-year-old male who presents to the emergency department via private vehicle for cough, runny nose, mild shortness of breath. The patient notes a 2-3-day history of cough, occasionally producing green sputum as well as generalized fatigue and shortness of breath. Patient also notes he has had a runny nose and a fever at home as high as 100.2 yesterday. The patient did take Tylenol prior to arrival. The patient does have a history of pulmonary embolism 2 years ago with similar symptoms, however, he had a syncopal episode at that time. The patient was placed on warfarin for 1 year and then subsequently taken off of warfarin by his barrel filler head, Dr. De La Torre. The patient does have a history of breast cancer 5 years ago and is currently on oral chemotherapy which can cause fatigue. The patient denies any tobacco use, states he quit smoking in 1968. He does note occasional lower extremity edema to the feet bilaterally, but denies any swelling to the calves. He denies any hospitalizations, surgeries, or prolonged travel in the last 3 months. Symptoms are moderate. There are no current alleviating factors. MD Complaint: Reports cough Onset (ago): day(s) Context: Reports recent illness Severity: moderate Consistency/Duration: intermittent Relieving factors: nothing Exacerbating factors: coughing Known history of: Reports PE Associated symptoms: Reports cough and sputum production Treatment prior to arrival: Reports none Related Data Home oxygen amount: none Home Medications Medication Instructions Recorded Confirmed amlodipine 5 mg PO DAILY 06/26/18 06/26/18 aspirin [Aspir-81] 81 mg PO DAILY 06/26/18 06/26/18 calcium carbonate-vitamin D3 1 tab PO TID 06/26/18 06/26/18 [Calcium 600 + D(3)] fenofibrate 160 mg PO DAILY 06/26/18 06/26/18 fulvestrant [Faslodex] 500 mg IM QMONTH 06/26/18 06/26/18 vmihlhvx-[id number]-C-jamal-bosw 1 tab PO DAILY 06/26/18 06/26/18 [Osteo Bi-Flex Triple Strength] hydrocortisone 10 mg PO BID 06/26/18 06/26/18 losartan 100 mg PO DAILY 06/26/18 06/26/18 metoprolol tartrate 50 mg PO BID 06/26/18 06/26/18 multivitamin 1 tab PO DAILY 06/26/18 06/26/18 palbociclib [Ibrance] 100 mg PO DAILY 06/26/18 06/26/18 simvastatin 40 mg PO QPM 06/26/18 06/26/18 vitamin [id number]-fwxii acid 1,000 06/26/18 Allergies Allergy/AdvReac Type Severity Reaction Status Date / Time No Known Allergies Allergy Verified 06/26/18 13:26 Review of Systems ROS: all other systems reviewed are negative [facility] Medical History Medical History Breast cancer in male (Acute) High cholesterol (Acute) Hx pulmonary embolism (Acute) Hypertension (Acute) Social History Social History Substance History: No History of Abuse Smoking Status: Former smoker How Often Do You Have a Drink Containing Alcohol: Monthly or less Recent Travel in [facility] within the Last 8 Weeks: No Recent Out of Country Travel within the Last 8 Weeks: No Immunization History Tetanus Immunization: <5 Years Exam Narrative Exam Narrative: GENERAL: Awake, alert, pleasant 77-year-old male who appears his stated age and is in no acute respiratory distress. SKIN: Focused skin assessment warm/dry. HEAD: Atraumatic. Normocephalic. EYES: Pupils equal and round. No scleral icterus. No injection or drainage. ENT: No nasal bleeding or discharge. Mucous membranes pink and moist. NECK: Trachea midline. No JVD. CARDIOVASCULAR: Regular rate and rhythm. No murmur appreciated. Heart rate in the 80s. RESPIRATORY: No accessory muscle use. Clear to auscultation. Breath sounds equal bilaterally. No audible wheezes, rales, rhonchi. GASTROINTESTINAL: Abdomen soft, non-tender, nondistended. MUSCULOSKELETAL: No obvious deformities. No clubbing. No cyanosis. No edema. NEUROLOGICAL: Awake and alert. No obvious cranial nerve deficits. Motor grossly within normal limits. Normal speech. PSYCHIATRIC: Appropriate mood and affect; insight and judgment normal. Course Initial Documented Vital Signs Temperature 98.1 F 06/26/18 13:21 Pulse Rate 80 06/26/18 13:21 Respiratory Rate 22 06/26/18 13:21 Blood Pressure 171/71 H 06/26/18 13:21 Pulse Oximetry 95 06/26/18 13:21 Last Documented Vital Signs Temperature 98.1 F 06/26/18 13:21 Pulse Rate 80 06/26/18 15:30 Respiratory Rate 20 06/26/18 15:30 Blood Pressure 153/70 H 06/26/18 15:30 Pulse Oximetry 93 L 06/26/18 15:30 Medical Decision Making MDM Narrative Medical decision making narrative: CT pulmonary angiogram reveals bilateral pulmonaryIV was established, labs are drawn and sent, and the patient was placed on cardiac telemetry monitoring and continuous pulse oximetry monitoring. The patient was administered Solu-Medrol and 1 DuoNeb. Chest x- ray was obtained. The patient was unable to be ruled out with PERC criteria, therefore, d-dimer was sent to lab as the patient did have a history of PE 2 years ago with similar symptoms. Chest x-ray reveals possible mass near the hilum, d-dimer was elevated at 6.9. Therefore, CT pulmonary angiogram was ordered to evaluate for PE, revealing bilateral pulmonary emboli and small foci of pneumonia. The patient was placed on a heparin drip, will require anticoagulation, most likely for life as this is his second episode. The patient was administered Rocephin and Zithromax. The patient has [employer], therefore, [facility] were paged for admission. I believe the patient is stable for the medical floor, oxygen saturation has been between 9094 % on room air. I discussed the patient with TOÑO Hicks on [facility], who agrees with admission. Medical Screen Exam Complete: Yes Emergency Medical Condition: Yes Differential Diagnosis Differential Diagnosis: Differential diagnosis includes pulmonary embolism, bronchitis, pneumonia, pleural effusion, pulmonary edema, congestive heart failure, ACS. Lab Data Lab results reviewed: Yes I reviewed the patient's lab results. Result diagrams: 06/26/18 14:10 06/26/18 14:10 Lab Results 06/26/18 06/26/18 06/26/18 Range/Units 14:10 14:10 14:10 CBC w Diff Auto diff final WBC 3.2 L (4.0-11.0) th/mm3 RBC 3.80 L (4.50-5.90) mil/mm3 Hgb 13.4 (13.0-17.0) gm/dL Hct 38.7 L (39.0-51.0) % MCV 101.9 H (80.0-100.0) fL MCH 35.2 H (27.0-34.0) pg MCHC 34.6 (32.0-36.0) % RDW 14.1 (11.6-17.2) % Plt Count 218 (150-450) th/mm3 MPV 8.1 (7.0-11.0) fL Neut % (Auto) 81.1 H (16.0-70.0) % Lymph % (Auto) 10.0 (9.0-44.0) % Nance % (Auto) 5.6 (0.0-8.0) % Eos % (Auto) 2.7 (0.0-4.0) % Baso % (Auto) 0.6 (0.0-2.0) % Neut # (Auto) 2.6 (1.8-7.7) th/mm3 Lymph # (Auto) 0.3 L (1.0-4.8) th/mm3 Nance # (Auto) 0.2 (0.0-0.9) th/mm3 Eos # (Auto) 0.1 (0.0-0.4) th/mm3 Baso # (Auto) 0.0 (0.0-0.2) th/mm3 WBC Differential . Differential Comment . PT 11.0 (9.8-11.6) sec INR 1.1 Ratio APTT 25.4 (23.4-31.7) sec D-Dimer Quant (PE/DVT) 6.49 H (0.00-0.50) mg/L FEU Sodium 136 (136-145) meq/L Potassium 3.8 (3.5-5.1) meq/L Chloride 101 (98-107) meq/L Carbon Dioxide 26.6 (21.0-32.0) meq/L Anion Gap 8 (5-15) meq/L BUN 14 (7-18) mg/dL Creatinine 1.70 H (0.60-1.30) mg/dL Estimated GFR 39 L (>89) mL/min Random Glucose 143 H (74-106) mg/dL Calcium 9.0 (8.5-10.1) mg/dL Total Bilirubin 0.6 (0.2-1.0) mg/dL AST 33 (15-37) U/L ALT 36 (12-78) U/L Alkaline Phosphatase 30 L (45-117) U/L Troponin I Less than 0.02 L (0.02-0.05) ng/mL B-Natriuretic Peptide (0-100) pg/mL Total Protein 7.6 (6.4-8.2) g/dL Albumin 3.7 (3.4-5.0) g/dL 06/26/18 Range/Units 14:10 CBC w Diff WBC (4.0-11.0) th/mm3 RBC (4.50-5.90) mil/mm3 Hgb (13.0-17.0) gm/dL Hct (39.0-51.0) % MCV (80.0-100.0) fL MCH (27.0-34.0) pg MCHC (32.0-36.0) % RDW (11.6-17.2) % Plt Count (150-450) th/mm3 MPV (7.0-11.0) fL Neut % (Auto) (16.0-70.0) % Lymph % (Auto) (9.0-44.0) % Nance % (Auto) (0.0-8.0) % Eos % (Auto) (0.0-4.0) % Baso % (Auto) (0.0-2.0) % Neut # (Auto) (1.8-7.7) th/mm3 Lymph # (Auto) (1.0-4.8) th/mm3 Nance # (Auto) (0.0-0.9) th/mm3 Eos # (Auto) (0.0-0.4) th/mm3 Baso # (Auto) (0.0-0.2) th/mm3 WBC Differential Differential Comment PT (9.8-11.6) sec INR Ratio APTT (23.4-31.7) sec D-Dimer Quant (PE/DVT) (0.00-0.50) mg/L FEU Sodium (136-145) meq/L Potassium (3.5-5.1) meq/L Chloride (98-107) meq/L Carbon Dioxide (21.0-32.0) meq/L Anion Gap (5-15) meq/L BUN (7-18) mg/dL Creatinine (0.60-1.30) mg/dL Estimated GFR (>89) mL/min Random Glucose (74-106) mg/dL Calcium (8.5-10.1) mg/dL Total Bilirubin (0.2-1.0) mg/dL AST (15-37) U/L ALT (12-78) U/L Alkaline Phosphatase (45-117) U/L Troponin I (0.02-0.05) ng/mL B-Natriuretic Peptide 50 (0-100) pg/mL Total Protein (6.4-8.2) g/dL Albumin (3.4-5.0) g/dL Imaging Data Radiologist's impression: Chest X-Ray 06/26/18 13:47 CONCLUSION: 1. Nodular density is noted within the right upper lung measuring approximately [address] of the chest would be helpful for further characterization of this nodule if clinically indicated. 2. Cardiomegaly. Chest CTA 06/26/18 15:15 CONCLUSION: 1. Bilateral pulmonary emboli. 2. Nonspecific scattered infiltrate in the right upper lung suggestive of pneumonia. 3. Stable 3 mm pulmonary nodule left lung base. Discharge Plan Discharge Disposition Patient Disposition: ED Admit(ED Internal Use Only) Discharge Condition Condition: Stable Discharge Order Discharge Orders: ED Use Only Admit Order (Routine); Ordered 06/26/18 Ordered By: Benny Sal Discharge Details Diagnosis: Bilateral pulmonary embolism, Pneumonia Physicians Team ED Provider: Benny Sal Rxs /Orders / Referrals /Forms Prescriptions: No Action multivitamin Tablet 1 tab PO DAILY RF: 0 amlodipine 5 mg Tablet 5 mg PO DAILY RF: 0 calcium carbonate-vitamin D3 [Calcium 600 + D(3)] 600 mg(1,500mg) -200 unit Tablet 1 tab PO TID RF: 0 aspirin [Aspir-81] 81 mg Tablet,Delayed Release (Dr/Ec) 81 mg PO DAILY RF: 0 simvastatin 40 mg Tablet 40 mg PO QPM RF: 0 metoprolol tartrate 50 mg Tablet 50 mg PO BID RF: 0 hydrocortisone 10 mg Tablet 10 mg PO BID RF: 0 losartan 100 mg Tablet 100 mg PO DAILY RF: 0 fulvestrant [Faslodex] 250 mg/5 mL Syringe 500 mg IM QMONTH RF: 0 fenofibrate 160 mg Tablet 160 mg PO DAILY RF: 0 wtmeriak-[id number]-yec5-C-jamal-bosw [Osteo Bi-Flex Triple Strength] 750 mg-644 mg- 30 mg-1 mg Tablet 1 tab PO DAILY RF: 0 palbociclib [Ibrance] 100 mg Capsule 100 mg PO DAILY RF: 0 vitamin [id number]-[id number] acid 1,000-400 mcg Lozenge 1,000 RF: 0 Status ED Status: Admitted Patient
[2018-06-26 14:22] LABS: Baso % (Auto) 0.6 % (0.0-2.0); Eos # (Auto) 0.1 th/mm3 (0.0-0.4); Eos % (Auto) 2.7 % (0.0-4.0); Hematocrit 38.7 % (39.0-51.0); Hemoglobin 13.4 gm/dL (13.0-17.0); Lymph # (Auto) 0.3 th/mm3 (1.0-4.8); Mean Corpuscular HGB Conc 34.6 % (32.0-36.0); Mean Corpuscular Hemoglobin 35.2 pg (27.0-34.0); Mean Corpuscular Volume 101.9 fL (80.0-100.0); Mean Platelet Volume 8.1 fL (7.0-11.0); Mono # (Auto) 0.2 th/mm3 (0.0-0.9); Mono % (Auto) 5.6 % (0.0-8.0); Neut # (Auto) 2.6 th/mm3 (1.8-7.7); Neut % (Auto) 81.1 % (16.0-70.0); Platelet Count 218 th/mm3 (150-450); Red Cell Distribution Width 14.1 % (11.6-17.2); White Blood Count 3.2 th/mm3 (4.0-11.0)
[2018-06-26 14:33] LABS: Chloride 101 meq/L (98-107); Potassium 3.8 meq/L (3.5-5.1); Sodium 136 meq/L (136-145)
--- NOTE | 2018-06-26 14:34 | XR ---
EXAM DATE: 06/26/2018 2:25 PM EST AGE/SEX: 77 years / Male INDICATIONS: Short of breath and productive cough. CLINICAL DATA: This is the patient's initial encounter. Patient reports that signs and symptoms have been present for 1 day and indicates a pain score of 0/10. MEDICAL/SURGICAL HISTORY: Carcinoma, breast. Hypercholesterolemia. Hypertension. Kidney stones. Arthritis. Radiation therapy. . Left wrist surgery. Hernia repair. Double mastectomy COMPARISON: [facility], XR CHEST PA AND LAT, 09/03/2017. . FINDINGS: Nodular density is noted within the right upper lung measuring approximately [address] of the chest w ould be helpful for further characterization of this nodule if clinically indicated. The heart is enl arged. The left lung is clear. No focal infiltrate is noted. Degenerative changes are noted throughou t the thoracic spine. CONCLUSION: 1. Nodular density is noted within the right upper lung measuring approximately [address] of the [address] would be helpful for further characterization of this nodule if clinically indicated. 2. Cardiomegaly. Electronically signed by: Dwayne Tran MD Board Certified Radiologist 06/26/2018 2:33 PM EST
[2018-06-26 14:36] LABS: Albumin 3.7 g/dL (3.4-5.0); Anion Gap 8 meq/L (5-15); Carbon Dioxide 26.6 meq/L (21.0-32.0); Glucose,Random 143 mg/dL (74-106)
[2018-06-26 14:37] LABS: Blood Urea Nitrogen 14 mg/dL (7-18)
[2018-06-26 14:40] LABS: Alanine Aminotransferase 36 U/L (12-78); Aspartate Aminotransferase 33 U/L (15-37); Glomerular Filtration Rate 39 mL/min (>89)
[2018-06-26 14:41] LABS: Total Protein 7.6 g/dL (6.4-8.2)
[2018-06-26 14:42] LABS: Alkaline Phosphatase 30 U/L (45-117)
[2018-06-26 15:09] LABS: Activated Partial Thrombo Time 25.4 sec (23.4-31.7); INR 1.1 Ratio
[2018-06-26 15:11] LABS: D-Dimer 6.49 mg/L FEU (0.00-0.50)
--- NOTE | 2018-06-26 16:20 | CT ---
EXAM DATE: 06/26/2018 4:12 PM EST AGE/SEX: 77 years / Male INDICATIONS: Elevated d-dimer. History of pulmonary emboli. Chest pain. Shortness of breath. CLINICAL DATA: This is the patient's initial encounter. Patient reports that signs and symptoms have been present for 3 days and indicates a pain score of 6/10. MEDICAL/SURGICAL HISTORY: Carcinoma, breast. Hypertension. Pulmonary emboli. None. RADIATION DOSE: 21.72 CTDI (mGy) COMPARISON: [facility], CT PULMONARY ANGIOGRAM, 08/12/2016. . TECHNIQUE: Volumetric scanning was performed using a multi-row detector CT scanner during bolus infu marie of 50 ml Visipaque 320 (iodixanol) nonionic water-soluble contrast as a single exam dose. The d aga was post processed with a variety of visualization algorithms including full volume maximum inten sity projection and sliding thin slab reformation. Using automated exposure control and adjustment of the mA and/or kV according to patient size, radiation dose was kept as low as reasonably achievable to obtain optimal diagnostic quality images. DICOM format image data is available electronically for review and comparison. FINDINGS: Pulmonary Arteries: Multiple filling defects are seen in several segmental branches of the right and left pulmonary arteries. These are predominantly branches of the pulmonary arteries feeding the lowe r lungs. Lung: Nonspecific scattered infiltrate in the right upper lung. There is a stable 3 mm pulmonary nod ule in the left lung base. Effusion: None. Mediastinum: No evidence of mediastinal or hilar adenopathy. Other: The axilla is unremarkable. CONCLUSION: 1. Bilateral pulmonary emboli. 2. Nonspecific scattered infiltrate in the right upper lung suggestive of pneumonia. 3. Stable 3 mm pulmonary nodule left lung base. Electronically signed by: Merritt Hayes MD Board Certified Radiologist 06/26/2018 4:18 PM EST
[2018-06-26] MEDS ORDERED: Heparin Drip 25,000 UNIT/250 ML BAG IV.CONT PRN (16:27)
[2018-06-26] MEDS ORDERED: Heparin 10,000 UNITS/10 ML Vial (for IV use) IV.PUSH STA (16:27)
[2018-06-26] MEDS ORDERED: Azithromycin Inj 500 MG in Sodium Chlor 0.9% Inj 250 ML IV.SIG ONE (16:28)
[2018-06-26] MEDS ORDERED: Sod Chloride 0.9% Inj 1,000 ML IV.SIG SCH (16:30)
[2018-06-26] MEDS ORDERED: Acetaminophen 325 MG Tablet PO PRN (16:40)
[2018-06-26] MEDS ORDERED: Bisacodyl 10 MG Supp RECTAL PRN (16:40)
--- NOTE | 2018-06-26 16:51 | P.HP ---
History of Present Illness Primary Care Physician: Brielle Thakur Chief Complaint: Shortness of breath, cough History of Present Illness: This is a 77-year-old male patient with a known medical history of hypertension , hyperlipidemia, history of breast cancer on p.o. chemotherapy and history of pulmonary embolism who presented to the ED with worsening shortness of breath, nonproductive cough and runny nose times 3 days. Patient states that his shortness of breath worsened over the last 3 days he also felt generally fatigued and with a fever at home of 100.2 yesterday. Patient denies any bowel changes including nausea, vomiting, abdominal pain, diarrhea or dysuria. It should be noted that patient follows closely with Dr. De La Torre, who manages his chemotherapy, he was diagnosed roughly 5 years ago with breast cancer. He did have a pulmonary embolism roughly 2 years ago and presented with similar symptoms, at that time was placed on Eliquis. He was subsequently taken off roughly 1 year ago and has been doing relatively well. He lives at home with his , able to perform all ADLs per self. CTA showing bilateral pulmonary embolism as well as possible right upper lobe pneumonia. - Diagnosis (1) Bilateral pulmonary embolism (2) Pneumonia Estimated Total Length of Stay (Days): 3 Plans for Post Hospital Care: Not yet determined Review of Systems All other systems reviewed negative except as stated in HPI PMFSH - History History Provided By: Patient - Medical History Medical History: Medical History (Last Reviewed 06/26/18 @ 16:44 by Fabiola Arredondo) Breast cancer in male High cholesterol Hx pulmonary embolism Hypertension - Surgical History Surgical History: Surgical History (Last Updated 06/26/18 @ 17:43 by Fabiola Arredondo) H/O mastectomy - Family History Family History: Family History (Last Updated 06/26/18 @ 17:43 by Fabiola Arredondo) Other Family history non-contributory - Social History I have reviewed the patient's Social History: Yes - Tobacco History Smoking Status: Former smoker - Alcohol History How Often Do You Have a Drink Containing Alcohol: Monthly or less - Substance Use History Substance History: No History of Abuse - Travel History Recent Travel in the [place] Within the Last 8 Weeks: No Recent Travel Out of the Country Within the Last 8 Weeks: No - Immunization History Tetanus Immunization: <5 Years Medications and Allergies Active Medications: Active Medications Heparin Sodium (Porcine) (Heparin Inj) 2,500 units IV.PUSH UNSCH PRN PRN Reason: aPTT 25-39 Ceftriaxone Sodium 1,000 mg/ (Sodium Chloride) 100 mls @ 200 mls/hr IV.SIG ONCE ONE Stop: 06/26/18 16:57 Heparin Sodium/Dextrose (Heparin/D5w 25,000 U/250 Ml) 25,000 unit in 250 mls @ 0 mls/hr IV.CONT TITRATE PRN; Protocol PRN Reason: Per Protocol Azithromycin 500 mg/ Sodium (Chloride) 250 mls @ 250 mls/hr IV.SIG ONCE ONE Stop: 06/26/18 17:27 Sodium Chloride (Ns Inj) 1,000 mls @ 1,000 mls/hr IV.SIG BOLUS ELIEZER Stop: 06/26/18 17:29 Allergies Allergy/AdvReac Type Severity Reaction Status Date / Time No Known Allergies Allergy Verified 06/26/18 13:26 Home Medications Medication Instructions Recorded Confirmed Type amlodipine 5 mg PO DAILY 06/26/18 06/26/18 History aspirin [Aspir-81] 81 mg PO DAILY 06/26/18 06/26/18 History calcium carbonate-vitamin D3 1 tab PO TID 06/26/18 06/26/18 History [Calcium 600 + D(3)] fenofibrate 160 mg PO DAILY 06/26/18 06/26/18 History fulvestrant [Faslodex] 500 mg IM QMONTH 06/26/18 06/26/18 History [id number]-fvst-wce3-C-jamal-bosw 1 tab PO DAILY 06/26/18 06/26/18 History [Osteo Bi-Flex Triple Strength] hydrocortisone 10 mg PO BID 06/26/18 06/26/18 History losartan 100 mg PO DAILY 06/26/18 06/26/18 History metoprolol tartrate 50 mg PO BID 06/26/18 06/26/18 History multivitamin 1 tab PO DAILY 06/26/18 06/26/18 History palbociclib [Ibrance] 100 mg PO DAILY 06/26/18 06/26/18 History simvastatin 40 mg PO QPM 06/26/18 06/26/18 History vitamin L92-wrhmt acid 1,000 06/26/18 History Exam Vital signs: Vital Signs 06/26/18 13:21 06/26/18 13:58 06/26/18 15:30 Temperature 98.1 F Pulse Rate 80 83 80 Respiratory Rate 22 20 20 Blood Pressure 171/71 H 153/70 H Pulse Oximetry 95 93 L Intake & Output 06/25/18 06/26/18 06/26/18 18:59 06:59 18:59 Weight 110 kg Narrative: GENERAL: Well-developed, well-nourished patient in NAD. On room air. SKIN: Warm and dry. No rash. HEAD: Normocephalic. Atraumatic. EYES: Pupils equal and round. No scleral icterus. No injection or drainage. ENT: No nasal bleeding or discharge. Mucous membranes pink and moist. NECK: Supple. Trachea midline. CARDIOVASCULAR: Regular rate and rhythm. S1, S2 noted. RESPIRATORY: No accessory muscle use. Rhonchi throughout. Breath sounds equal bilaterally. GASTROINTESTINAL: Abdomen soft, non-tender, nondistended. Normoactive bowel sounds x4. MUSCULOSKELETAL: No obvious deformities. Extremities without clubbing, cyanosis , or edema. NEUROLOGICAL: Awake and alert. No obvious cranial nerve deficits. Motor grossly within normal limits. 5/5 muscle strength in bilateral upper and lower extremities. Normal speech. PSYCHIATRIC: Appropriate mood and affect; insight and judgment normal. Results - Labs CBC & Chem 7: 06/26/18 14:10 06/26/18 14:10 Labs: Laboratory Results - last 24 hr 06/26/18 06/26/18 06/26/18 14:10 14:10 14:10 CBC w Diff Auto diff final WBC 3.2 L RBC 3.80 L Hgb 13.4 Hct 38.7 L MCV 101.9 H MCH 35.2 H MCHC 34.6 RDW 14.1 Plt Count 218 MPV 8.1 Neut % (Auto) 81.1 H Lymph % (Auto) 10.0 [place] % (Auto) 5.6 Eos % (Auto) 2.7 Baso % (Auto) 0.6 Neut # (Auto) 2.6 Lymph # (Auto) 0.3 L [place] # (Auto) 0.2 Eos # (Auto) 0.1 Baso # (Auto) 0.0 WBC Differential . Differential Comment . PT 11.0 INR 1.1 APTT 25.4 D-Dimer Quant (PE/DVT) 6.49 H Sodium 136 Potassium 3.8 Chloride 101 Carbon Dioxide 26.6 Anion Gap 8 BUN 14 Creatinine 1.70 H Estimated GFR 39 L Random Glucose 143 H Calcium 9.0 Total Bilirubin 0.6 AST 33 ALT 36 Alkaline Phosphatase 30 L Troponin I Less than 0.02 L B-Natriuretic Peptide Total Protein 7.6 Albumin 3.7 06/26/18 14:10 CBC w Diff WBC RBC Hgb Hct MCV MCH MCHC RDW Plt Count MPV Neut % (Auto) Lymph % (Auto) [place] % (Auto) Eos % (Auto) Baso % (Auto) Neut # (Auto) Lymph # (Auto) [place] # (Auto) Eos # (Auto) Baso # (Auto) WBC Differential Differential Comment PT INR APTT D-Dimer Quant (PE/DVT) Sodium Potassium Chloride Carbon Dioxide Anion Gap BUN Creatinine Estimated GFR Random Glucose Calcium Total Bilirubin AST ALT Alkaline Phosphatase Troponin I B-Natriuretic Peptide 50 Total Protein Albumin - Imaging Impressions Chest X-Ray 06/26/18 13:47 CONCLUSION: 1. Nodular density is noted within the right upper lung measuring approximately [address] of the chest would be helpful for further characterization of this nodule if clinically indicated. 2. Cardiomegaly. Chest CTA 06/26/18 15:15 CONCLUSION: 1. Bilateral pulmonary emboli. 2. Nonspecific scattered infiltrate in the right upper lung suggestive of pneumonia. 3. Stable 3 mm pulmonary nodule left lung base. Caprini VTE Risk Assessment Caprini VTE Risk Assessment: Moderate/High Risk (score >= 2) Caprini Risk Assessment Model: Point Value = 1 Point Value = 2 Point Value = 3 Point Value = 5 Age 41-60 Minor surgery BMI > 25 kg/m2 Swollen legs Varicose veins or History of unexplained or recurrent spontaneous Oral contraceptives or hormone replacement Sepsis (< 1 month) Serious lung disease, including pneumonia (< 1 month) Abnormal pulmonary function Acute myocardial infarction Congestive heart failure (< 1 month) History of inflammatory bowel disease Medical patient at bed rest Age 61-74 Arthroscopic surgery Major open surgery (> 45 min) Laparoscopic surgery (> 45 min) Malignancy Confined to bed (> 72 hours) Immobilizing plaster cast Central venous access Age >= 75 History of VTE Family history of VTE Factor V Leiden Prothrombin [id number] Lupus anticoagulant Anticardiolipin antibodies Elevated serum homocysteine Heparin-induced thrombocytopenia Other congenital or acquired thrombophilia Stroke (< 1 month) Elective arthroplasty Hip, pelvis, or leg fracture Acute spinal cord injury (< 1 month) Prophylaxis Regimen: Total Risk Factor Score Risk Level Prophylaxis Regimen 0-1 Low Early ambulation 2 Moderate Order ONE of the following: *Sequential Compression Device (SCD) *Heparin 5000 units SQ BID 3-4 Higher Order ONE of the following medications: *Heparin 5000 units SQ TID *Enoxaparin/Lovenox 40 mg SQ daily (WT < 150 kg, CrCl > 30 mL/min) *Enoxaparin/Lovenox 30 mg SQ daily (WT < 150 kg, CrCl > 10-29 mL/min) *Enoxaparin/Lovenox 30 mg SQ BID (WT < 150 kg, CrCl > 30 mL/min) AND/OR *Sequential Compression Device (SCD) 5 or more Highest Order ONE of the following medications: *Heparin 5000 units SQ TID (Preferred with Epidurals) *Enoxaparin/Lovenox 40 mg SQ daily (WT < 150 kg, CrCl > 30 mL/min) *Enoxaparin/Lovenox 30 mg SQ daily (WT < 150 kg, CrCl > 10-29 mL/min) *Enoxaparin/Lovenox 30 mg SQ BID (WT < 150 kg, CrCl > 30 mL/min) AND *Sequential Compression Device (SCD) Assessment and Plan - Assessment (1) Bilateral pulmonary embolism Code(s): I26.99 - Other pulmonary embolism without acute cor pulmonale Status : Acute (2) Pneumonia Code(s): J18.9 - Pneumonia, unspecified organism Status: Acute - Plan This is a 77-year-old male patient who presented to the ED with: Bilateral lateral pulmonary embolism Community-acquired right upper lobe pneumonia History of breast cancer on p.o. chemotherapy History of pulmonary embolism 2 years ago -D-dimer was 6.49 on presentation. A CTA done in ED to evaluate for PE, revealed bilateral pulmonary emboli and small right upper lobe pneumonia. -Patient has been placed on a heparin drip. Will consult Dr. De La Torre for long- term anticoagulation. -Started on azithromycin and ceftriaxone in ED. Will continue. -CBC reviewed and essentially unremarkable. -Supplemental O2 as needed, patient is stable on room air at this time. -Will continue IV steroids as well as duo nebs. -Monitor for improvement. Supportive care. Chronic kidney disease stage III -Creatinine 1.7/GFR 39. -After review of records patient appears to be at baseline. -Will continue to monitor BMP. -Avoid nephrotoxins. Hypertension, chronic -Continue home medications. Monitor blood pressure trends. Hyperlipidemia, chronic -Continue home statin. DVT prophylaxis: SCDs. Heparin gtt. (2) Pneumonia Qualifiers: Pneumonia type: due to unspecified organism Laterality: right Lung location : upper lobe of lung Qualified Code(s): J18.1 - Lobar pneumonia, unspecified organism
[2018-06-26] MEDS: Metoprolol Tartrate 50 MG Tablet PO SCH (21:29)
[2018-06-26] MEDS: Hydrocortisone 10 MG Tablet PO SCH (21:29)
[2018-06-26] MEDS ORDERED: Heparin 10,000 UNITS/10 ML Vial (for IV use) IV.PUSH PRN (22:27)
[2018-06-27 06:41] LABS: Baso % (Auto) 1.1 % (0.0-2.0); Eos % (Auto) 0.1 % (0.0-4.0); Hematocrit 34.5 % (39.0-51.0); Hemoglobin 11.7 gm/dL (13.0-17.0); Lymph # (Auto) 0.4 th/mm3 (1.0-4.8); Lymph % (Auto) 9.3 % (9.0-44.0); Mean Corpuscular HGB Conc 33.8 % (32.0-36.0); Mean Corpuscular Hemoglobin 35.2 pg (27.0-34.0); Mean Corpuscular Volume 104.3 fL (80.0-100.0); Mono # (Auto) 0.1 th/mm3 (0.0-0.9); Mono % (Auto) 1.6 % (0.0-8.0); Neut # (Auto) 3.5 th/mm3 (1.8-7.7); Neut % (Auto) 87.9 % (16.0-70.0); Platelet Count 217 th/mm3 (150-450); Red Blood Count 3.31 mil/mm3 (4.50-5.90); Red Cell Distribution Width 14.6 % (11.6-17.2)
[2018-06-27 07:00] LABS: Potassium 3.9 meq/L (3.5-5.1)
[2018-06-27 07:03] LABS: Calcium 8.4 mg/dL (8.5-10.1); Carbon Dioxide 23.7 meq/L (21.0-32.0)
[2018-06-27 07:20] LABS: Platelet Estimate Normal (Normal); Platelet Morphology Normal (Normal); RBC Morphology Normal (Normal)
[2018-06-27 07:23] VITALS: O2SAT 96
--- NOTE | 2018-06-27 07:57 | P.PNIM ---
Subjective Interval history: Follow up bilateral pulmonary embolism and pneumonia. Patient seen and examined , sitting on side of bed comfortably no apparent distress. No reports of any acute events overnight. Awaiting hematology consult for coagulation. Continue heparin drip for now. Eating well drinking well without any abdominal pain nausea or vomiting. Denies any shortness of breath or chest pain. Physical Exam Vital signs: Vital Signs 06/26/18 13:21 06/26/18 13:58 06/26/18 15:30 Temperature 98.1 F Pulse Rate 80 83 80 Respiratory Rate 22 20 20 Blood Pressure 171/71 H 153/70 H Pulse Oximetry 95 93 L 06/26/18 17:23 06/26/18 18:30 06/26/18 20:00 Temperature 97.6 F 99.0 F Pulse Rate 88 89 110 H Respiratory Rate 20 20 18 Blood Pressure 158/82 H 161/75 H 139/63 Pulse Oximetry 93 L 93 L 93 L 06/26/18 20:15 06/27/18 00:00 06/27/18 07:22 Temperature 99.1 F Pulse Rate 73 65 85 Respiratory Rate 20 18 16 Blood Pressure 130/60 Pulse Oximetry 93 L 95 96 Intake & Output 06/26/18 06/27/18 06/27/18 18:59 06:59 18:59 Intake Total 2125 / 2125 Output Total 400 / 400 Balance 1725 / 1725 Weight 110 kg 109.7 kg Intake: IV 1999 / 1999 Azithromycin Inj 500 MG In NS 1000 / 1000 Inj 250 ML @ 250 mls/hr IV.SIG ONCE ONE Rx#:[id number] NS Inj 1,000 ML @ 1000 mls/hr 1000 / 1000 IV.SIG BOLUS ELIEZER Rx#:[id number] Oral 125 / 125 Output: Urine 400 / 400 Narrative: GENERAL: Well-developed, well-nourished patient in NAD. On room air. SKIN: Warm and dry. No rash. HEAD: Normocephalic. Atraumatic. EYES: Pupils equal and round. No scleral icterus. No injection or drainage. ENT: No nasal bleeding or discharge. Mucous membranes pink and moist. NECK: Supple. Trachea midline. CARDIOVASCULAR: Regular rate and rhythm. S1, S2 noted. RESPIRATORY: No accessory muscle use. Rhonchi throughout. Breath sounds equal bilaterally. GASTROINTESTINAL: Abdomen soft, non-tender, nondistended. Normoactive bowel sounds x4. MUSCULOSKELETAL: No obvious deformities. Extremities without clubbing, cyanosis , or edema. NEUROLOGICAL: Awake and alert. No obvious cranial nerve deficits. Motor grossly within normal limits. 5/5 muscle strength in bilateral upper and lower extremities. Normal speech. PSYCHIATRIC: Appropriate mood and affect; insight and judgment normal. Results - Labs CBC & Chem 7: 06/27/18 04:50 06/27/18 04:50 Laboratory Results - last 24 hr 06/26/18 06/26/18 06/26/18 14:10 14:10 14:10 CBC w Diff Auto diff final WBC 3.2 L RBC 3.80 L Hgb 13.4 Hct 38.7 L MCV 101.9 H MCH 35.2 H MCHC 34.6 RDW 14.1 Plt Count 218 MPV 8.1 Neut % (Auto) 81.1 H Lymph % (Auto) 10.0 [place] % (Auto) 5.6 Eos % (Auto) 2.7 Baso % (Auto) 0.6 Neut # (Auto) 2.6 Lymph # (Auto) 0.3 L [place] # (Auto) 0.2 Eos # (Auto) 0.1 Baso # (Auto) 0.0 WBC Differential . Diff Scan Differential Comment . Platelet Estimate Platelet Morphology RBC Morphology PT 11.0 INR 1.1 APTT 25.4 D-Dimer Quant (PE/DVT) 6.49 H Sodium 136 Potassium 3.8 Chloride 101 Carbon Dioxide 26.6 Anion Gap 8 BUN 14 Creatinine 1.70 H Estimated GFR 39 L Random Glucose 143 H Calcium 9.0 Total Bilirubin 0.6 AST 33 ALT 36 Alkaline Phosphatase 30 L Troponin I Less than 0.02 L B-Natriuretic Peptide Total Protein 7.6 Albumin 3.7 06/26/18 06/26/18 06/27/18 14:10 22:45 00:10 CBC w Diff WBC RBC Hgb Hct MCV MCH MCHC RDW Plt Count MPV Neut % (Auto) Lymph % (Auto) [place] % (Auto) Eos % (Auto) Baso % (Auto) Neut # (Auto) Lymph # (Auto) [place] # (Auto) Eos # (Auto) Baso # (Auto) WBC Differential Diff Scan Differential Comment Platelet Estimate Platelet Morphology RBC Morphology PT INR APTT Greater than 277.5 H* 126.0 H* D D-Dimer Quant (PE/DVT) Sodium Potassium Chloride Carbon Dioxide Anion Gap BUN Creatinine Estimated GFR Random Glucose Calcium Total Bilirubin AST ALT Alkaline Phosphatase Troponin I B-Natriuretic Peptide 50 Total Protein Albumin 06/27/18 06/27/18 06/27/18 03:10 04:50 04:50 CBC w Diff Slide review pending WBC 4.0 RBC 3.31 L Hgb 11.7 L Hct 34.5 L MCV 104.3 H MCH 35.2 H MCHC 33.8 RDW 14.6 Plt Count 217 MPV 9.0 Neut % (Auto) 87.9 H Lymph % (Auto) 9.3 [place] % (Auto) 1.6 Eos % (Auto) 0.1 Baso % (Auto) 1.1 Neut # (Auto) 3.5 Lymph # (Auto) 0.4 L [place] # (Auto) 0.1 Eos # (Auto) 0.0 Baso # (Auto) 0.0 WBC Differential . Diff Scan Auto diff confirmed Differential Comment . Platelet Estimate Normal Platelet Morphology Normal RBC Morphology Normal PT INR APTT 35.7 H D D-Dimer Quant (PE/DVT) Sodium 140 Potassium 3.9 Chloride 106 Carbon Dioxide 23.7 Anion Gap 10 BUN 17 Creatinine 1.60 H Estimated GFR 42 L Random Glucose 140 H Calcium 8.4 L Total Bilirubin AST ALT Alkaline Phosphatase Troponin I B-Natriuretic Peptide Total Protein Albumin - Imaging Impressions Chest X-Ray 06/26/18 13:47 CONCLUSION: 1. Nodular density is noted within the right upper lung measuring approximately [address] of the chest would be helpful for further characterization of this nodule if clinically indicated. 2. Cardiomegaly. Chest CTA 06/26/18 15:15 CONCLUSION: 1. Bilateral pulmonary emboli. 2. Nonspecific scattered infiltrate in the right upper lung suggestive of pneumonia. 3. Stable 3 mm pulmonary nodule left lung base. Assessment and Plan - Assessment (1) Bilateral pulmonary embolism Code(s): I26.99 - Other pulmonary embolism without acute cor pulmonale Status : Acute (2) Pneumonia Code(s): J18.9 - Pneumonia, unspecified organism Status: Acute - Plan This is a 77-year-old male patient who presented to the ED with: Bilateral lateral pulmonary embolism Community-acquired right upper lobe pneumonia History of breast cancer on p.o. chemotherapy History of pulmonary embolism 2 years ago -D-dimer was 6.49 on presentation. A CTA done in ED to evaluate for PE, revealed bilateral pulmonary emboli and small right upper lobe pneumonia. -Patient has been placed on a heparin drip. Will consult Dr. De La Torre for long- term anticoagulation. -Started on azithromycin and ceftriaxone in ED. Will continue. -CBC reviewed and essentially unremarkable. -Supplemental O2 as needed, patient is stable on room air at this time. -Will continue IV steroids as well as duo nebs. -Monitor for improvement. Supportive care. Chronic kidney disease stage III -Creatinine 1.7/GFR 39 on presentation. -After review of records patient appears to be at baseline. -Will continue to monitor BMP. -Avoid nephrotoxins. Hypertension, chronic -Continue home medications. Monitor blood pressure trends. Hyperlipidemia, chronic -Continue home statin. DVT prophylaxis: SCDs. Heparin gtt. (2) Pneumonia Qualifiers: Pneumonia type: due to unspecified organism Laterality: right Lung location : upper lobe of lung Qualified Code(s): J18.1 - Lobar pneumonia, unspecified organism
[2018-06-27] MEDS ORDERED: PALBOCICLIB 100 MG PO SCH (09:00)
[2018-06-27] MEDS ORDERED: amLODIPine 5 MG Tablet PO SCH (09:00)
[2018-06-27] MEDS ORDERED: Fenofibrate 145 MG Tablet PO SCH (09:00)
[2018-06-27] MEDS: Metoprolol Tartrate 50 MG Tablet PO SCH (09:15)
[2018-06-27] MEDS: Hydrocortisone 10 MG Tablet PO SCH (09:16)
[2018-06-27 10:04] VITALS: BP 143/65; PULSE 92; RESP 20; TEMP 98.2
--- NOTE | 2018-06-27 13:02 | P.CON ---
History of Present Illness Service: oncology Primary Care Provider: Brielle Thakur Chief Complaint: Shortness of breath, cough History of Present Illness: Mr. Ayers is a 77 year old man with metastatic breast cancer, BRCA positive who follows in clinic with Dr. De La Torre. He is currently being treated with fulvestrant and Ibrance. He has a history of pulmonary embolism in 08/2016. At that time tamoxifen was changed to fulvestrant. He was on anticoagulation for one year with apixaban. he presented to the [facility] with progressively worsening SOB that is similar to his past initial diagnosis of PE. Imaging studies revealed bilateral pulmonary emboli. Review of Systems All other systems reviewed negative except as stated in HPI PMF - History History Provided By: Patient - Medical History Medical History: Medical History (Last Reviewed 06/27/18 @ 12:58 by Nano Heaton) Breast cancer in male High cholesterol Hx pulmonary embolism Hypertension - Surgical History Surgical History: Surgical History (Last Reviewed 06/27/18 @ 12:58 by Nano Heaton) H/O mastectomy - Family History Family History: Family History (Last Updated 06/27/18 @ 12:58 by Nano Heaton) Other Breast cancer Family history non-contributory - Tobacco History Second Hand Smoke Exposure: No Smoking Status: Never smoker - Alcohol History How Often Do You Have a Drink Containing Alcohol: Never - Substance Use History Substance History: No History of Abuse - Travel History Recent Travel in the [place] Within the Last 8 Weeks: No Recent Travel Out of the Country Within the Last 8 Weeks: No - Immunization History Tetanus Immunization: <5 Years Medications and Allergies Allergies Allergy/AdvReac Type Severity Reaction Status Date / Time No Known Allergies Allergy Verified 06/26/18 13:26 Home Medications Medication Instructions Recorded Confirmed Type amlodipine 5 mg PO DAILY 06/26/18 06/26/18 History aspirin [Aspir-81] 81 mg PO DAILY 06/26/18 06/26/18 History calcium carbonate-vitamin D3 1 tab PO TID 06/26/18 06/26/18 History [Calcium 600 + D(3)] fenofibrate 160 mg PO DAILY 06/26/18 06/26/18 History fulvestrant [Faslodex] 500 mg IM QMONTH 06/26/18 06/26/18 History [id number] 1 tab PO DAILY 06/26/18 06/26/18 History [Osteo Bi-Flex Triple Strength] hydrocortisone 10 mg PO BID 06/26/18 06/26/18 History losartan 100 mg PO DAILY 06/26/18 06/26/18 History metoprolol tartrate 50 mg PO BID 06/26/18 06/26/18 History multivitamin 1 tab PO DAILY 06/26/18 06/26/18 History palbociclib [Ibrance] 100 mg PO DAILY 06/26/18 06/26/18 History simvastatin 40 mg PO QPM 06/26/18 06/26/18 History vitamin [id number] acid 1,000 06/26/18 History Physical Exam Vital signs: Vital Signs 06/26/18 13:21 06/26/18 13:58 06/26/18 15:30 Temperature 98.1 F Pulse Rate 80 83 80 Respiratory Rate 22 20 20 Blood Pressure 171/71 H 153/70 H Pulse Oximetry 95 93 L 06/26/18 17:23 06/26/18 18:30 06/26/18 20:00 Temperature 97.6 F 99.0 F Pulse Rate 88 89 110 H Respiratory Rate 20 20 18 Blood Pressure 158/82 H 161/75 H 139/63 Pulse Oximetry 93 L 93 L 93 L 06/26/18 20:15 06/27/18 00:00 06/27/18 07:22 Temperature 99.1 F Pulse Rate 73 65 85 Respiratory Rate 20 18 16 Blood Pressure 130/60 Pulse Oximetry 93 L 95 96 06/27/18 08:00 Temperature 98.2 F Pulse Rate 92 H Respiratory Rate 20 Blood Pressure 143/65 H Pulse Oximetry 96 Intake & Output 06/26/18 06/27/18 06/27/18 18:59 06:59 18:59 Intake Total 2125 / 2125 Output Total 400 / 400 Balance 1725 / 1725 Weight 110 kg 109.7 kg Intake: IV 1999 / 1999 Azithromycin Inj 500 MG In NS 1000 / 1000 Inj 250 ML @ 250 mls/hr IV.SIG ONCE ONE Rx#:[id number] NS Inj 1,000 ML @ 1000 mls/hr 1000 / 1000 IV.SIG BOLUS ELIEZER Rx#:[id number] Oral 125 / 125 Output: Urine 400 / 400 - Constitutional no acute distress - Routine HEENT Exam Head: Present: normocephalic, atraumatic Eye: Present: EOMI, PERRL ENT: Present: mucous membranes moist - Routine Neck Exam Present: supple, full ROM - Routine Respiratory Exam Present: CTA bilaterally - Routine Cardiovascular Exam Present: RRR, S1, S2 - Routine Abdominal Exam Present: soft, normoactive bowel sounds - Routine Extremities Exam Comments: no edema - Routine Neurological Exam Present: alert, oriented X3 Results - Labs CBC & Chem 7: 06/27/18 04:50 06/27/18 04:50 Labs: Laboratory Results - last 24 hr 06/26/18 06/26/18 06/26/18 14:10 14:10 14:10 CBC w Diff Auto diff final WBC 3.2 L RBC 3.80 L Hgb 13.4 Hct 38.7 L MCV 101.9 H MCH 35.2 H MCHC 34.6 RDW 14.1 Plt Count 218 MPV 8.1 Neut % (Auto) 81.1 H Lymph % (Auto) 10.0 [place] % (Auto) 5.6 Eos % (Auto) 2.7 Baso % (Auto) 0.6 Neut # (Auto) 2.6 Lymph # (Auto) 0.3 L [place] # (Auto) 0.2 Eos # (Auto) 0.1 Baso # (Auto) 0.0 WBC Differential . Diff Scan Differential Comment . Platelet Estimate Platelet Morphology RBC Morphology PT 11.0 INR 1.1 APTT 25.4 D-Dimer Quant (PE/DVT) 6.49 H Sodium 136 Potassium 3.8 Chloride 101 Carbon Dioxide 26.6 Anion Gap 8 BUN 14 Creatinine 1.70 H Estimated GFR 39 L Random Glucose 143 H Calcium 9.0 Total Bilirubin 0.6 AST 33 ALT 36 Alkaline Phosphatase 30 L Troponin I Less than 0.02 L B-Natriuretic Peptide Total Protein 7.6 Albumin 3.7 06/26/18 06/26/18 06/27/18 14:10 22:45 00:10 CBC w Diff WBC RBC Hgb Hct MCV MCH MCHC RDW Plt Count MPV Neut % (Auto) Lymph % (Auto) [place] % (Auto) Eos % (Auto) Baso % (Auto) Neut # (Auto) Lymph # (Auto) [place] # (Auto) Eos # (Auto) Baso # (Auto) WBC Differential Diff Scan Differential Comment Platelet Estimate Platelet Morphology RBC Morphology PT INR APTT Greater than 277.5 H* 126.0 H* D D-Dimer Quant (PE/DVT) Sodium Potassium Chloride Carbon Dioxide Anion Gap BUN Creatinine Estimated GFR Random Glucose Calcium Total Bilirubin AST ALT Alkaline Phosphatase Troponin I B-Natriuretic Peptide 50 Total Protein Albumin 06/27/18 06/27/18 06/27/18 03:10 04:50 04:50 CBC w Diff Slide review pending WBC 4.0 RBC 3.31 L Hgb 11.7 L Hct 34.5 L MCV 104.3 H MCH 35.2 H MCHC 33.8 RDW 14.6 Plt Count 217 MPV 9.0 Neut % (Auto) 87.9 H Lymph % (Auto) 9.3 [place] % (Auto) 1.6 Eos % (Auto) 0.1 Baso % (Auto) 1.1 Neut # (Auto) 3.5 Lymph # (Auto) 0.4 L [place] # (Auto) 0.1 Eos # (Auto) 0.0 Baso # (Auto) 0.0 WBC Differential . Diff Scan Auto diff confirmed Differential Comment . Platelet Estimate Normal Platelet Morphology Normal RBC Morphology Normal PT INR APTT 35.7 H D D-Dimer Quant (PE/DVT) Sodium 140 Potassium 3.9 Chloride 106 Carbon Dioxide 23.7 Anion Gap 10 BUN 17 Creatinine 1.60 H Estimated GFR 42 L Random Glucose 140 H Calcium 8.4 L Total Bilirubin AST ALT Alkaline Phosphatase Troponin I B-Natriuretic Peptide Total Protein Albumin - Imaging Impressions Chest X-Ray 06/26/18 13:47 CONCLUSION: 1. Nodular density is noted within the right upper lung measuring approximately [address] of the chest would be helpful for further characterization of this nodule if clinically indicated. 2. Cardiomegaly. Chest CTA 06/26/18 15:15 CONCLUSION: 1. Bilateral pulmonary emboli. 2. Nonspecific scattered infiltrate in the right upper lung suggestive of pneumonia. 3. Stable 3 mm pulmonary nodule left lung base. Assessment and Plan - Plan Pulmonary embolism: unprovoked in the setting of metastatic breast cancer. He is currently on heparin gtt with improvement in symptoms. At discharge would place patient on apixaban therapy. he has been on this in the past with good tolerance to therapy and no bleeding. He will need to have close follow up in clinic with Dr. De La Torre.
== END 2018-06-27 11:05 | disposition home or self-care (01) | DRG 175 ==
LOC: PHED 13:19 → PHEDA 16:40 → PH3 18:06
PROVIDERS: ADMIT Internal Medicine; ATTEND Internal Medicine
CPT/HCPCS: 71010; 71045; 71275; 80048; 80053; 83520; 83880; 84484; 85025; 85379; 85610; 85730; 90774; 94640; 94664; 94665; 96374; 99285; C8952; J0456; J1644; J2930; J7030; J7050; Q9967